=== PATIENT | female | born 1970 | race Caucasian/White ===

== ENCOUNTER 2018-10-04 07:03 | Emergency (ER) | payer BC ==
[2018-10-04] MEDS ORDERED: TETANUS & DIPHTHERIA TOX,ADULT 0.5 ML VIAL ONE (07:42)
[2018-10-04] MEDS ORDERED: NA CHLORIDE 0.9% 1,000 ML ONE (07:43)
--- NOTE | 2018-10-04 07:57 | RAD REPORT ---
EXAM DESCRIPTION: CT - Head C Spine Mpr Wo Con - 10/04/2018 7:26 am CLINICAL HISTORY: Head and neck injury status post fall. Head and neck pain. Dizziness COMPARISON: None. TECHNIQUE: Computed axial tomography of the head and cervical spine was obtained. Sagittal and coronal reconstruction was performed. All CT scans are performed using dose optimization technique as appropriate and may include automated exposure control or mA/KV adjustment according to patient size. FINDINGS: An intracranial bleed is not seen. The ventricles are normal in caliber. An extra-axial fl uid collection is not noted.Fluid within the visualized sinuses and mastoids is not seen A cervical fracture is not visualized. No dislocation is noted. IMPRESSION: No acute intracranial abnormality is seen. A cervical fracture is not visualized. If the patient continues to have symptoms to suggest intracra nial /spinal cord pathology then MRI would be recommended
[2018-10-04 08:00] LABS: Absolute Lymphocytes (CBC) 1.2 K/uL (0.7-4.9); Absolute Neutrophil 8.7 K/uL (1.8-8.0); Basophils % 0.4 % (0-1.3); Eosinophils % 0.2 % (0-4.4); Hematocrit 45.8 % (36.0-45.0); Lymphocytes % 11.1 % (15.3-44.8); MPV 7.2 fL (7.6-11.3); RBC Red Blood Cell Count 5.47 M/uL (3.86-4.86)
[2018-10-04] MEDS ORDERED: ONDANSETRON 4 MG/2 ML VIAL ONE (08:14)
--- NOTE | 2018-10-04 08:31 | EDPHYS ---
Physician Documentation [facility] Name: Reyna Garcia Age: 48 yrs Sex: Female : 1970 Arrival Date: 10/04/2018 Time: 07:05 Bed 7 Private MD: ED Physician Noel Thao HPI: 10/04 07:13 This 48 yrs old Female presents to ER via EMS with complaints of Passed Out kdr Prior To Arrival. 07:13 The patient has experienced syncope, collapsed. Onset: The symptoms/episode kdr began/occurred suddenly, just prior to arrival. Duration: This was a single episode. Context: the episode(s) was witnessed, by family, , occurred at home, occurred while the patient was Getting up to go to the bathroom and then had cramp in calf which caused excruciating pain. Associated injury: Head/face: laceration, 3 cm(s). Associated signs and symptoms: Pertinent positives: diaphoresis, lightheadedness. Current symptoms: head pain. The patient has not experienced similar symptoms in the past. The patient has not recently seen a physician. Historical: - Allergies: 07:08 No Known Allergies; hb - Immunization history:: Adult Immunizations up to date. - Social history:: Smoking status: Patient/guardian denies using tobacco. - Ebola Screening: : No symptoms or risks identified at this time. ROS: 07:13 Constitutional: Negative for fever, chills, and weight loss, Eyes: Negative for injury, kdr pain, redness, and discharge, ENT: Negative for injury, pain, and discharge, Neck: Negative for injury, pain, and swelling, Cardiovascular: Negative for chest pain, palpitations, and edema, Respiratory: Negative for shortness of breath, cough, wheezing, and pleuritic chest pain, Abdomen/GI: Negative for abdominal pain, nausea, vomiting, diarrhea, and constipation, Back: Negative for injury and pain, : Negative for injury, bleeding, discharge, and swelling, MS/Extremity: Negative for injury and deformity, Psych: Negative for depression, anxiety, suicide ideation, homicidal ideation, and hallucinations, Allergy/Immunology: Negative for hives, rash, and allergies, Endocrine: Negative for neck swelling, polydipsia, polyuria, polyphagia, and marked weight changes, Hematologic/Lymphatic: Negative for swollen nodes, abnormal bleeding, and unusual bruising. 07:13 Skin: Positive for laceration(s). 07:13 Neuro: Positive for loss of consciousness, syncope, weakness. Exam: 07:13 Constitutional: This is a well developed, well nourished patient who is awake, alert, kdr and in no acute distress. Eyes: Pupils equal round and reactive to light, extra-ocular motions intact. Lids and lashes normal. Conjunctiva and sclera are non-icteric and not injected. Cornea within normal limits. Periorbital areas with no swelling, redness, or edema. ENT: Nares patent. No nasal discharge, no septal abnormalities noted. Tympanic membranes are normal and external auditory canals are clear. Oropharynx with no redness, swelling, or masses, exudates, or evidence of obstruction, uvula midline. Mucous membranes moist. Neck: Trachea midline, no thyromegaly or masses palpated, and no cervical lymphadenopathy. Supple, full range of motion without nuchal rigidity, or vertebral point tenderness. No Meningismus. Chest/axilla: Normal chest wall appearance and motion. Nontender with no deformity. No lesions are appreciated. Cardiovascular: Regular rate and rhythm with a normal S1 and S2. No gallops, murmurs, or rubs. Normal PMI, no JVD. No pulse deficits. Respiratory: Lungs have equal breath sounds bilaterally, clear to auscultation and percussion. No rales, rhonchi or wheezes noted. No increased work of breathing, no retractions or nasal flaring. Abdomen/GI: Soft, non-tender, with normal bowel sounds. No distension or tympany. No guarding or rebound. No evidence of tenderness throughout. Back: No spinal tenderness. No costovertebral tenderness. Full range of motion. Skin: Warm, dry with normal turgor. Normal color with no rashes, no lesions, and no evidence of cellulitis. MS/ Extremity: Pulses equal, no cyanosis. Neurovascular intact. Full, normal range of motion. Neuro: Awake and alert, GCS 15, oriented to person, place, time, and situation. Cranial nerves II-XII grossly intact. Motor strength 5/5 in all extremities. Sensory grossly intact. Cerebellar exam normal. Normal gait. Psych: Awake, alert, with orientation to person, place and time. Behavior, mood, and affect are within normal limits. 07:13 Head/face: Noted is a laceration(s), that is superficial, 3 cm(s). Vital Signs: 07:07 BP 110 / 81; Pulse 108; Resp 16; Temp 97.9; Pulse Ox 100% on R/A; Pain 4/10; hb 07:55 BP 104 / 62; Pulse 88; Resp 16; Pulse Ox 100% on R/A; hb 08:45 BP 115 / 60; Pulse 80; Resp 16; Pulse Ox 100% on R/A; hb 09:45 BP 122 / ???; Pulse 68; Resp 78; Temp 16; Pulse Ox 100% on R/A; hb Laceration: 08:03 Wound Repair of 3cm ( 1.2in ) subcutaneous laceration to face and top of head. kb Irregularly shaped.. Distal neuro/vascular/tendon intact. Wound prep: Extensive cleansing with hibiclenz by me, Wound irrigation with saline by me. Skin closed with 5 1-0 [place] using staple gun. Patient tolerated well. MDM: 08:30 Patient medically screened. kdr 08:34 Data reviewed: vital signs, nurses notes, lab test result(s). Counseling: I had a kdr detailed discussion with the patient and/or guardian regarding: the historical points, exam findings, and any diagnostic results supporting the discharge/admit diagnosis, lab results, radiology results, the need for outpatient follow up. 10/04 07:13 Order name: CBC with Diff; Complete Time: 08:18 kdr 10/04 07:13 Order name: Chem 7; Complete Time: 08:18 kdr 10/04 07:13 Order name: CT Head C Spine; Complete Time: 08:18 kdr 10/04 07:13 Order name: EKG - Nurse/Tech; Complete Time: 07:55 kdr 10/04 07:32 Order name: Dressing - Wound; Complete Time: 07:55 kb 10/04 07:32 Order name: Gloves, Sterile; Complete Time: 07:55 kb 10/04 09:29 Order name: EKG Electrocardiogram EDMS 10/04 07:32 Order name: Setup Suture Tray; Complete Time: 07:55 kb Administered Medications: 07:35 Drug: Tetanus-Diphtheria Toxoid Adult 0.5 ml {Beach Expert: [employer] Exp: rb1 08/25/2020. Lot #: [id number]. } Route: IM; Site: right deltoid; 08:07 Follow up: Response: No adverse reaction hb 08:06 Drug: NS 0.9% 1000 ml Route: IV; Rate: 1 bolus; Site: right antecubital; hb 08:45 Follow up: Response: No adverse reaction; IV Status: Completed infusion hb 08:06 Drug: Zofran 4 mg Route: IVP; Site: right antecubital; hb 08:54 Follow up: Response: No adverse reaction hb 08:45 Drug: Potassium Chloride 40 mEq Route: PO; hb 09:40 Follow up: Response: No adverse reaction hb 08:45 Drug: Flexeril 10 mg Route: PO; hb 09:45 Follow up: Response: No adverse reaction hb 08:47 CANCELLED (per Dr. Thao): NS 0.45 % with KCl 20 mEq/L 1000 ml IV at 125 ml/hr once hb 08:49 Drug: NS 0.9% 1000 ml Route: IV; Rate: 1000 ml; Site: right antecubital; hb 10:00 Follow up: Response: No adverse reaction; IV Status: Completed infusion hb Disposition: 08:34 Co-signature as Attending Physician, Noel Thao MD I agree with the assessment and kdr plan of care. Disposition: 10/04/18 08:30 Discharged to Home. Impression: Syncope and collapse, Other specified injuries of head, Superficial injury of head, Laceration without foreign body of scalp, Hypokalemia, Muscle spasm of calf. - Condition is Stable. - Discharge Instructions: Syncope, Laceration Care, Adult, Djcs-wh-Tzdw, Muscle Cramps and Spasms, Wfav-ij-Uroz, Head Injury, Adult, Odni-ih-Jryj, Stitches, Shobha, or Adhesive Wound Closure, Ogcl-hc-Yodl, Facial or Scalp Contusion, Fyxv-sa-Cbye. - Prescriptions for Cyclobenzaprine 10 mg Oral Tablet - take 1 tablet by ORAL route every 8 hours As needed; 30 tablet. Tramadol 50 mg Oral Tablet - take 1 tablet by ORAL route every 8 hours as needed; 12 tablet. Keflex 500 mg Oral Capsule - take 1 capsule by ORAL route every 8 hours for 7 days; 21 capsule. - Medication Reconciliation Form, Thank You Letter, Antibiotic Education form. - Follow up: Private Physician; When: 2 - 3 days; Reason: If symptoms return, Further diagnostic work-up, Recheck today's complaints, Continuance of care, Re-evaluation by your physician. - Problem is new. - Symptoms have improved. - Notes: [place] should be taken out in about 10 days. Signatures: Dispatcher [employer] EDMeliza Salazar, ENVIRONMENTAL SERVICES TECH-C ENVIRONMENTAL SERVICES TECH-Noel Mejia MD MD kdr Migdalia Rodriguez RN RN [facility] Olga Arauz RN RN Corrections: (The following items were deleted from the chart) 08:35 08:30 10/04/2018 08:30 Discharged to Home. Impression: Syncope and collapse; Other kdr specified injuries of head; Superficial injury of head; Laceration without foreign body of scalp. Condition is Stable. Forms are Medication Reconciliation Form, Thank You Letter, Antibiotic Education, Prescription Opioid Use. Follow up: Private Physician; When: 2 - 3 days; Reason: If symptoms return, Further diagnostic work-up, Recheck today's complaints, Continuance of care, Re-evaluation by your physician. Problem is new. Symptoms have improved. kdr 08:47 08:19 NS 0.45 % with KCl 20 mEq/L 1000 ml IV at 125 ml/hr once ordered. kdr hb 08:47 08:47 NS 0.45 % with KCl 20 mEq/L 1000 ml IV at 125 ml/hr once ordered. hb hb 10:03 08:35 10/04/2018 08:30 Discharged to Home. Impression: Syncope and collapse; Other hb specified injuries of head; Superficial injury of head; Laceration without foreign body of scalp; Hypokalemia; Muscle spasm of calf. Condition is Stable. Discharge Instructions: Syncope, Laceration Care, Adult, Gnoa-if-Jzju, Head Injury, Adult, Rpmo-gv-Xevd, Stitches, [place], or Adhesive Wound Closure, Qlni-nm-Tqks, Facial or Scalp Contusion, Kxtp-ka-Dsho, Muscle Cramps and Spasms, Pfgk-sc-Zsuq. Prescriptions for Cyclobenzaprine 10 mg Oral Tablet - take 1 tablet by ORAL route every 8 hours As needed; 30 tablet, Tramadol 50 mg Oral Tablet - take 1 tablet by ORAL route every 8 hours as needed; 12 tablet, Keflex 500 mg Oral Capsule - take 1 capsule by ORAL route every 8 hours for 7 days; 21 capsule. and Forms are Medication Reconciliation Form, Thank You Letter, Antibiotic Education. Follow up: Private Physician; When: 2 - 3 days; Reason: If symptoms return, Further diagnostic work-up, Recheck today's complaints, Continuance of care, Re-evaluation by your physician. Problem is new. Symptoms have improved. kdr
--- NOTE | 2018-10-04 08:31 | ER ---
Nurse's Notes [facility] Name: Reyna Garcia Age: 48 yrs Sex: Female : 1970 Arrival Date: 10/04/2018 Time: 07:05 Bed 7 Private MD: Diagnosis: Syncope and collapse;Other specified injuries of head;Superficial injury of head;Laceration without foreign body of scalp;Hypokalemia;Muscle spasm of calf Presentation: 10/04 07:05 Presenting complaint: EMS states: Became dizzy while ambulating to bathroom, fell and hb hit head on door hinge. + LOC. Laceration to top of head noted, not bleeding at this time. SBP on scene 130s, SBP 50s during transit to ED. Transition of care: patient was not received from another setting of care. Onset of symptoms was October 04, 2018. Risk Assessment: Do you want to hurt yourself or someone else? Patient reports no desire to harm self or others. Care prior to arrival: None. 07:05 Method Of Arrival: EMS: [facility] hb 07:05 Acuity: KWASI 3 hb 07:30 Initial Sepsis Screen: Does the patient meet any 2 criteria? No. Patient's initial hb sepsis screen is negative. Does the patient have a suspected source of infection? No. Patient's initial sepsis screen is negative. Historical: - Allergies: 07:08 No Known Allergies; hb - Immunization history:: Adult Immunizations up to date. - Social history:: Smoking status: Patient/guardian denies using tobacco. - Ebola Screening: : No symptoms or risks identified at this time. Screenin:08 Abuse screen: Denies threats or abuse. Denies injuries from another. Nutritional hb screening: No deficits noted. Tuberculosis screening: No symptoms or risk factors identified. Fall Risk Total Magallon Fall Scale indicates Low Risk Score (25-44 pts). Fall prevention measures have been instituted. Side Rails Up X 2 Frequent Obs/Assesments occuring As available Patient and Family Educated on Fall Prevention Program and strategies. Assessment: 07:10 General: Appears in no apparent distress. Behavior is calm, cooperative. Pain: Pain hb currently is 4 out of 10 on a pain scale. Neuro: Level of Consciousness is awake, alert, obeys commands, Oriented to person, place, time, situation. Cardiovascular: Heart tones S1 S2 present Capillary refill < 3 seconds Patient's skin is warm and dry. Respiratory: Airway is patent Respiratory effort is even, unlabored, Respiratory pattern is regular, symmetrical, Breath sounds are clear bilaterally. GI: No deficits noted. No signs and/or symptoms were reported involving the gastrointestinal system. : No signs and/or symptoms were reported regarding the genitourinary system. EENT: No signs and/or symptoms were reported regarding the EENT system. Derm: Skin is healthy with good turgor, Skin is pink, warm \T\ dry. Musculoskeletal: No signs and/or symptoms reported regarding the musculoskeletal system. Injury Description: Laceration sustained to top of head is clean, 2.6 to 7.5 cm long, not bleeding, was sustained 30-60 minutes ago. 07:50 Reassessment: DYNAMIC ETCHING PROCESSOR Meliza at bedside for laceration repari. hb 08:09 Reassessment: Pt c/o nausea, Dr. Thao notified, Zofran administered as ordered. VSS. hb at bedside. 08:55 Reassessment: Discharge ordered, IV fluids infujsing at this time. hb 09:15 Reassessment: Patient appears in no apparent distress at this time. No changes from hb previously documented assessment. Patient and/or family updated on plan of care and expected duration. Pain level reassessed. Patient is alert, oriented x 3, equal unlabored respirations, skin warm/dry/pink. 10:00 Reassessment: Patient appears in no apparent distress at this time. No changes from hb previously documented assessment. Patient and/or family updated on plan of care and expected duration. Pain level reassessed. Patient is alert, oriented x 3, equal unlabored respirations, skin warm/dry/pink. Vital Signs: 07:07 BP 110 / 81; Pulse 108; Resp 16; Temp 97.9; Pulse Ox 100% on R/A; Pain 4/10; hb 07:55 BP 104 / 62; Pulse 88; Resp 16; Pulse Ox 100% on R/A; hb 08:45 BP 115 / 60; Pulse 80; Resp 16; Pulse Ox 100% on R/A; hb 09:45 BP 122 / ???; Pulse 68; Resp 78; Temp 16; Pulse Ox 100% on R/A; hb ED Course: 07:05 Patient arrived in ED. hb 07:07 Triage completed. hb 07:08 Arm band placed on. hb 07:08 Patient has correct armband on for positive identification. Bed in low position. Call hb light in reach. Side rails up X2. 07:10 Noel Thao MD is Attending Physician. kdr 07:26 CT Head C Spine In Process Unspecified. EDMS 07:55 Initial lab(s) drawn, by me, sent to lab. Inserted saline lock: 22 gauge in right em1 forearm, using aseptic technique. Blood collected. 08:00 Olga Arauz, RN is Primary Nurse. hb 09:45 No provider procedures requiring assistance completed. hb 10:01 IV discontinued, intact, bleeding controlled, No redness/swelling at site. Pressure hb dressing applied. Administered Medications: 07:35 Drug: Tetanus-Diphtheria Toxoid Adult 0.5 ml {Supervisor Coremaker: [employer]. Exp: rb1 08/25/2020. Lot #: [id number]. } Route: IM; Site: right deltoid; 08:07 Follow up: Response: No adverse reaction hb 08:06 Drug: NS 0.9% 1000 ml Route: IV; Rate: 1 bolus; Site: right antecubital; hb 08:45 Follow up: Response: No adverse reaction; IV Status: Completed infusion hb 08:06 Drug: Zofran 4 mg Route: IVP; Site: right antecubital; hb 08:54 Follow up: Response: No adverse reaction hb 08:45 Drug: Potassium Chloride 40 mEq Route: PO; hb 09:40 Follow up: Response: No adverse reaction hb 08:45 Drug: Flexeril 10 mg Route: PO; hb 09:45 Follow up: Response: No adverse reaction hb 08:47 CANCELLED (per Dr. Thao): NS 0.45 % with KCl 20 mEq/L 1000 ml IV at 125 ml/hr once hb 08:49 Drug: NS 0.9% 1000 ml Route: IV; Rate: 1000 ml; Site: right antecubital; hb 10:00 Follow up: Response: No adverse reaction; IV Status: Completed infusion hb Outcome: 08:30 Discharge ordered by . kdr 10:01 Discharged to home ambulatory, with significant other. hb 10:01 Condition: stable 10:01 Discharge instructions given to patient, Instructed on discharge instructions, follow up and referral plans. medication usage, wound care, Demonstrated understanding of instructions, follow-up care, medications, wound care, Prescriptions given X 3. 10:03 Patient left the ED. hb Signatures: Dispatcher [employer] EDMS Noel Thao MD MD kdr Martinez, Eric 1 Migdalia Rodriguez, RN RN rb1 Olga Arauz RN RN hb
[2018-10-04] MEDS ORDERED: CYCLOBENZAPRINE 10 MG TAB ONE (08:48)
[2018-10-04] MEDS ORDERED: POTASSIUM CL SA 10 MEQ TAB PO ONE (08:48)
[2018-10-04] MEDS ORDERED: NS KCL 20MEQ 1,000 ML IV ONE (08:54)
[2018-10-04] MEDS ORDERED: NACHLORIDE 0.45% 1,000 ML with POTASSIUM CL 20 MEQ IV ONE ×2 (09:00)
[2018-10-04 10:25] VITALS: O2SAT 100
[2018-10-04 10:27] VITALS: BP 115/60
[2018-10-04 10:28] VITALS: TEMP 16
--- NOTE | 2018-10-04 13:17 | EKG ---
Test Date: 2018-10-04 Test Time: 07:44:32 Human Resources Associate: ROSA MEASUREMENT RESULTS: Intervals: Rate: 73 [place]: 172 QRSD: 84 QT: 386 QTc: 425 [place]: P: 28 [place]: 172 QRS: 17 T: 42 INTERPRETIVE STATEMENTS: Normal sinus rhythm Normal ECG No previous ECG available for comparison Electronically Signed On 10-04-18 13:16:29 PIECE DYE WORKER by Imer Felipe
== END 2018-10-04 10:03 | disposition home or self-care (01) ==
LOC: ER 07:03
PROC: 0JQ00ZZ Repair Scalp Subcutaneous Tissue and Fascia, Open Approach (ICD-10-PCS; principal; 2018-10-04)
DX: S01.01XA Laceration without foreign body of scalp, initial encounter (principal); M62.831 Muscle spasm of calf; E87.6 Hypokalemia; S09.8XXA Other specified injuries of head, initial encounter; S00.90XA Unspecified superficial injury of unspecified part of head, initial encounter; W18.39XA Other fall on same level, initial encounter; Y93.01 Activity, walking, marching and hiking; Y92.008 Other place in unspecified non-institutional (private) residence as the place of occurrence of the external cause; Z23 Encounter for immunization
CPT/HCPCS: 36415; 70450; 72125; 80048; 85025; 90714; 93005; 96361; 96374; 99284; J2405; J7030

== ENCOUNTER 2020-02-09 06:43 | Emergency (ER) | payer BC ==
--- OUTSIDE RECORDS SUMMARY | 2020-02-09 06:45 | XMS REPORT | Continuity of Care Document ---
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 Medic al disorder Group (disorder) Joint pain Active Problem 09/27/2019 Medic al (finding) Group Medications No Data Provided for This Section Allergies, Adverse Reactions, Alerts Substance Category Reaction Severity Reaction Status Date Comments S ource type Reported No Known Assertion Drug Medication allergy Medic al Allergies Group Immunizations No Data Provided for This Section Results No Data Provided for This Section Pathology Reports No Data Provided for This Section Diagnostic Reports No Data Provided for This Section Consultation Notes No Data Provided for This Section Discharge Summaries No Data Provided for This Section History and Physicals No Data Provided for This Section Vital Signs Vital Sign Value Date Comments Source Systolic (mm Hg) 122 09/10/2019 [facility] Group Diastolic (mm Hg) 75 09/10/2019 [facility] Group Heart Rate 86 09/10/2019 [facility] Height 160.02 cm 09/10/2019 [facility] p Weight 93.182 09/10/2019 [facility] p BMI Calculated 36.39 09/10/2019 Medical Gr oup Encounters Location Location Encounter Encounter Reason Attending ADM [place] Stat Source Details Type Number For Provider Date Date Visit Outpatient [id number] 09/[address] [facility] Outpatient [id number] 09/10 09/11 [facility]2019 [facility] Outpatient [id number] ACCESS LIAISON 09/[facility] Ambulatory [id number] ACCESS LIAISON 09/25 09/25 [facility] Pre-Reg VISIT /2019 [facility] al [facility] Surgery Procedures Procedure Code Date Perfomer Comments Source Appendectomy [id number] [facility] Partial colectomy [id number] [facility] Assessment and Plan No Data Provided for This Section Plan of Care No Data Provided for This Section Social History Social History Date Source Social History TypeResponse 09/10/2019 [facility] Smoking Status Never smoker; Exposure to Tobacco Smoke None; Cigarette Smoking Last 365 Days No; Reg Smoking Cessation Counseling No entered on: 09/10/19 Family History No Data Provided for This Section Advance Directives No Data Provided for This Section Functional Status No Data Provided for This Section
[2020-02-09] MEDS ORDERED: ONDANSETRON 4 MG/2 ML VIAL ONE (07:37)
[2020-02-09] MEDS ORDERED: NA CHLORIDE 0.9% 1,000 ML ONE (07:37)
[2020-02-09] MEDS ORDERED: KETOROLAC 30 MG/ML INJ ONE (07:37)
[2020-02-09 07:53] LABS: Bilirubin Direct 0.1 mg/dL (0-0.2); Bilirubin Total 0.6 mg/dL (0.2-1.0); Potassium 3.5 mmol/L (3.5-5.1); Protein, Total 7.7 g/dL (6.4-8.2)
[2020-02-09 08:02] LABS: Absolute Lymphocytes (CBC) 1.6 K/uL (0.7-4.9); Basophils % 0.6 % (0-1.3); Hematocrit 40.9 % (36.0-45.0); Lymphocytes % 24.5 % (15.3-44.8); MPV 7.4 fL (7.6-11.3); RBC Red Blood Cell Count 4.87 M/uL (3.86-4.86)
--- NOTE | 2020-02-09 09:10 | ER ---
Nurse's Notes [facility] Name: Reyna Garcia Age: 49 yrs Sex: Female : 1970 Arrival Date: 02/09/2020 Time: 06:46 Bed 7 Private MD: Diagnosis: Dehydration Presentation: 02/08 07:09 Chief complaint: Patient states: lightheaded, dizziness, diarrhea, nausea, chest sv tightness intermittent with deep breathing, sore throat, decreased appetite x 2 days. Pt states "I blame it on stress but I want to get checked.". Coronavirus screen: Surgical mask placed on patient. Patient moved to private room, placed in contact and droplet isolation with eye protection until further assessment. Patient reports a cough. Patient denies shortness of breath or difficulty breathing. Patient denies measured and/or subjective temperature greater than 100.4F prior to today's visit. Patient denies travel on a cruise ship or to a country the [facility] currently lists as an affected area. Patient reports contact with known and/or suspected case of COVID-19. Ebola Screen: No symptoms or risks identified at this time. Risk Assessment: Do you want to hurt yourself or someone else? Patient reports no desire to harm self or others. Onset of symptoms was February 07, 2020. 07:09 Method Of Arrival: Ambulatory sv 07:09 Acuity: KWASI 3 sv Historical: - Allergies: 07:11 No Known Allergies; sv - PMHx: 07:11 Migraines; sv - PSHx: 07:11 Colectomy; sv - Immunization history:: Adult Immunizations up to date. - Social history:: Smoking status: Patient denies any tobacco usage or history of. Patient/guardian denies using alcohol, street drugs, The patient lives with family. - Family history:: not pertinent. - Hospitalizations: : No recent hospitalization is reported. Assessment: 08:02 Pain: Complains of pain in abdomen. Neuro: Level of Consciousness is awake, alert, dm5 obeys commands, Oriented to person, place, time. Respiratory: Airway is patent Respiratory effort is even, unlabored, Respiratory pattern is regular, symmetrical. GI: Abdomen is flat, Reports cramping, diarrhea, nausea. Derm: Skin is pink, warm \\T\\ dry. 08:33 Reassessment: Patient states symptoms have improved. dm5 09:02 Reassessment: Patient is alert, oriented x 3, equal unlabored respirations, skin dm5 warm/dry/pink. Patient states symptoms have improved. pt updated on POC. Pt will be discharged following the complete administration of fluids.. Vital Signs: 07:12 Weight 90.72 kg; Height 5 ft. 3 in. (160.02 cm); Pain 6/10; sv 07:30 BP 126 / 72; Pulse 97; Resp 18; Temp 97.9(O); Pulse Ox 97% ; dm5 08:00 BP 132 / 82; Pulse 71; Resp 18; Pulse Ox 98% ; dm5 07:12 Body Mass Index 35.43 (90.72 kg, 160.02 cm) sv ED Course: 06:46 Patient arrived in ED. bp1 07:00 Adrien Rocha, BAKARI is PHCP. pm1 07:11 Triage completed. sv 07:11 Arm band placed on Patient placed in an exam room, on a stretcher. sv 07:11 Patient has correct armband on for positive identification. Placed in gown. Bed in low sv position. Call light in reach. Door closed. Head of bed elevated. 07:12 Chelita Baez MD is Attending Physician. ma2 07:26 Leela Null, RN is Primary Nurse. dm5 08:02 Missed attempt(s): 20 gauge in right antecubital area. kj1 08:03 Flu Sent. kj1 08:03 COVID-19 Sent. kj1 08:07 CXR XRAY In Process Unspecified. EDMS Administered Medications: 07:47 Drug: NS 0.9% 1000 ml Route: IV; Rate: 1000 ml; Site: left wrist; dm5 07:48 Drug: TORadol 30 mg Route: IVP; Site: left wrist; dm5 08:33 Follow up: Response: Pain is decreased dm5 07:49 Drug: Zofran (Ondansetron) 4 mg Route: IVP; Site: left wrist; dm5 08:32 Follow up: Response: Nausea is decreased dm5 Outcome: 09:10 Discharge ordered by . ma2 09:34 Patient left the ED. sv Addendum: 02/14/2020 10:53 Addendum: COVID-19 Result: Negative result given to RN to notify pt. Notified pt of s s negative COVID 19 swab results. Pt advised that even with a negative test result they should remain in isolation until symptom free for 3 days without medication. Pt also advised to return to the ED for worsening symptoms. Signatures: Dispatcher [employer] EDNM Leela Null RN RN dm5 Hanh Daniel RN RN sv Genevieve Stein RN RN ss Adrien Rocha, BAKARI GROUP WORKER pm1 Chelita Baez MD MD ma2 Blanca Frias 1 Britta Bernal [facility]
--- NOTE | 2020-02-09 09:10 | EDPHYS ---
Physician Documentation [facility] Name: Reyna Garcia Age: 49 yrs Sex: Female : 1970 Arrival Date: 02/09/2020 Time: 06:46 Bed 7 Private MD: ED Physician Chelita Baez HPI: 02/08 07:12 This 49 yrs old Female presents to ER via Ambulatory with complaints of ma2 Decreased Appetite, General Weakness, Diarrhea. 07:12 Onset: The symptoms/episode began/occurred gradually, 1 day(s) ago. Associated signs ma2 and symptoms: Pertinent negatives: belching, dysuria, hematuria. Severity of symptoms: At their worst the symptoms were mild in the emergency department the symptoms are unchanged. The patient has not experienced similar symptoms in the past. 08:28 The patient presents to the emergency department with nausea, diarrhea. ma2 Historical: - Allergies: 07:11 No Known Allergies; sv - PMHx: 07:11 Migraines; sv - PSHx: 07:11 Colectomy; sv - Immunization history:: Adult Immunizations up to date. - Social history:: Smoking status: Patient denies any tobacco usage or history of. Patient/guardian denies using alcohol, street drugs, The patient lives with family. - Family history:: not pertinent. - Hospitalizations: : No recent hospitalization is reported. ROS: 08:28 Constitutional: Negative for fever, chills, and weight loss. ma2 08:28 All other systems are negative. Exam: 08:28 Constitutional: This is a well developed, well nourished patient who is awake, alert, ma2 and in no acute distress. ENT: Nares patent. No nasal discharge, no septal abnormalities noted. Tympanic membranes are normal and external auditory canals are clear. Oropharynx with no redness, swelling, or masses, exudates, or evidence of obstruction, uvula midline. Mucous membranes moist. Neck: Trachea midline, no thyromegaly or masses palpated, and no cervical lymphadenopathy. Supple, full range of motion without nuchal rigidity, or vertebral point tenderness. No Meningismus. Chest/axilla: Normal chest wall appearance and motion. Nontender with no deformity. No lesions are appreciated. Cardiovascular: Regular rate and rhythm with a normal S1 and S2. No gallops, murmurs, or rubs. Normal PMI, no JVD. No pulse deficits. Respiratory: Lungs have equal breath sounds bilaterally, clear to auscultation and percussion. No rales, rhonchi or wheezes noted. No increased work of breathing, no retractions or nasal flaring. Abdomen/GI: Soft, non-tender, with normal bowel sounds. No distension or tympany. No guarding or rebound. No evidence of tenderness throughout. MS/ Extremity: Pulses equal, no cyanosis. Neurovascular intact. Full, normal range of motion. Neuro: Awake and alert, GCS 15, oriented to person, place, time, and situation. Cranial nerves II-XII grossly intact. Motor strength 5/5 in all extremities. Sensory grossly intact. Cerebellar exam normal. Normal gait. Vital Signs: 07:12 Weight 90.72 kg; Height 5 ft. 3 in. (160.02 cm); Pain 6/10; sv 07:30 BP 126 / 72; Pulse 97; Resp 18; Temp 97.9(O); Pulse Ox 97% ; dm5 08:00 BP 132 / 82; Pulse 71; Resp 18; Pulse Ox 98% ; dm5 07:12 Body Mass Index 35.43 (90.72 kg, 160.02 cm) sv MDM: 07:12 Patient medically screened. ma2 08:28 Differential diagnosis: gastritis, pancreatitis, viral gastroenteritis, ma2 gastroenteritis. Data reviewed: vital signs, nurses notes. Counseling: I had a detailed discussion with the patient and/or guardian regarding: the historical points, exam findings, and any diagnostic results supporting the discharge/admit diagnosis, the presence of at least one elevated blood pressure reading (>120/80) during this emergency department visit, the need for outpatient follow up. Response to treatment: the patient's symptoms have markedly improved after treatment. 02/08 07:15 Order name: BMP [facility] 02/08 07:15 Order name: CBC with Diff; Complete Time: : [facility] 02/08 07:15 Order name: Hepatic Function; Complete Time: : [facility] 02/08 07:15 Order name: Lipase; Complete Time: : [facility] 02/08 07:15 Order name: Flu; Complete Time: : [facility] 02/08 07:15 Order name: COVID-19 [facility] 02/08 07:15 Order name: IV Saline Lock; Complete Time: 08:02 ak2 02/08 07:15 Order name: Labs collected and sent; Complete Time: 08:02 [facility] 02/08 07:15 Order name: NPO; Complete Time: 08:02 ak2 02/08 07:15 Order name: CXR XRAY [facility] 02/08 07:16 Order name: Basic Metabolic Panel; Complete Time: 08:27 EDMS 02/08 07:15 Order name: Droplet/Contact Precautions; Complete Time: 08:32 ak2 02/08 07:15 Order name: Labs collected and sent; Complete Time: 08:03 ak2 02/08 07:15 Order name: O2 Per Protocol; Complete Time: 08:32 ma2 Administered Medications: 07:47 Drug: NS 0.9% 1000 ml Route: IV; Rate: 1000 ml; Site: left wrist; dm5 07:48 Drug: TORadol 30 mg Route: IVP; Site: left wrist; dm5 08:33 Follow up: Response: Pain is decreased dm5 07:49 Drug: Zofran (Ondansetron) 4 mg Route: IVP; Site: left wrist; dm5 08:32 Follow up: Response: Nausea is decreased dm5 Disposition: 02/09/20 09:10 Discharged to Home. Impression: Dehydration. - Condition is Stable. - Discharge Instructions: COVID-19, Dehydration, Adult. - Prescriptions for Zofran 4 mg Oral Tablet - take 1 tablet by ORAL route every 12 hours As needed; 20 tablet. - Medication Reconciliation Form, Thank You Letter, Antibiotic Education, Prescription Opioid Use form. - Follow up: Private Physician; When: Tomorrow; Reason: If symptoms return, Continuance of care. Signatures: Dispatcher [employer] Leela Loco RN RN dm5 Hanh Daniel RN RN sv Alzahri, Mohammad, MD MD ma2 Corrections: (The following items were deleted from the chart) 09:34 09:10 02/09/2020 09:10 Discharged to Home. Impression: Dehydration. Condition is sv Stable. Forms are Medication Reconciliation Form, Thank You Letter, Antibiotic Education, Prescription Opioid Use. Follow up: Private Physician; When: Tomorrow; Reason: If symptoms return, Continuance of care. ma2
--- NOTE | 2020-02-09 09:16 | RAD REPORT ---
EXAM DESCRIPTION: RAD - Chest Single View - 02/09/2020 8:07 am CLINICAL HISTORY: CONGESTION, chest tightness COMPARISON: Two view chest December 2007 TECHNIQUE: AP portable chest image was obtained 02/09/2020 8:07 am . FINDINGS: Lungs are clear. Heart and vasculature are normal. No measurable pleural effusion and no p neumothorax. No acute bony abnormality seen. No acute aortic findings suspected. IMPRESSION: No acute cardiopulmonary process. No significant change since 2007.
[2020-02-09 09:42] VITALS: TEMP 97.9
[2020-02-09 09:44] VITALS: BP 132/82; O2SAT 98
== END 2020-02-09 09:34 | disposition home or self-care (01) ==
LOC: ER 06:43
DX: E86.0 Dehydration (principal); Z20.828 Contact with and (suspected) exposure to other viral communicable diseases
CPT/HCPCS: 85025; 80048; 36415; 80076; 83690; 87804 ×2; 71045; 96375; 96374; 99283; U0001; J7030; J2405

== ENCOUNTER 2020-07-02 09:08 | Emergency (ER) | payer BC ==
--- OUTSIDE RECORDS SUMMARY | 2020-07-02 09:10 | XMS REPORT | Clinical Summary ---
:1970 Author Organization [facility] Address [address] [place] [address] Care Team Providers Name Role Phone Nam Patiño Primary Care Provider Allergies No Known Allergies Medications Medication Sig Dispensed Refills Start Date End Date Status ondansetron (ZOFRAN) 4 Take 4 mg by 0 Active MG tablet mouth 2 (two) times daily as needed for Nausea. pantoprazole (PROTONIX) Take 40 mg by 0 Active 40 MG tablet mouth daily. Active Problems Not on file Encounters Date Type Specialty Care Team Description 03/30/2020 Anesthesia Event GiovanyChelo Lopez MD 03/30/2020 Surgery Michael Groves COLONOSCOPY,B GWEN Johnson MD 03/30/2020 Hospital Encounter Michael Groves MD 03/30/2020 Travel 03/27/2020 Hospital Encounter Pre-Admission Michael Groves MD 03/27/2020 Travel after 07/02/2019 Social History Tobacco Use Types Packs/Day Years Used Date Never Smoker Smokeless Tobacco: Never Used Alcohol Use Drinks/Week oz/Week Comments No Alcohol Habits Answer Date Recorded How often do you have a drink containing alcohol? Never 03/27/2020 How many drinks containing alcohol do you have on a typical Not asked day when you are drinking? How often do you have six or more drinks on one occasion? No t asked Sex Assigned at Date Recorded Not on file Last Filed Vital Signs Vital Sign Reading Time Taken Comments Blood Pressure 114/78 03/30/2020 12:00 PM CDT Pulse 70 03/30/2020 12:00 PM CDT Temperature 36.6 C (97.8 F) 03/30/2020 11:33 AM CDT Respiratory Rate 28 03/30/2020 12:00 PM CDT Oxygen Saturation 100% 03/30/2020 12:00 PM CDT Inhaled Oxygen Concentration - - Weight 88.5 kg (195 lb) 03/30/2020 10:00 AM CDT Height 162.6 cm (5' 4") 03/30/2020 10:00 AM CDT Body Mass Index 33.47 03/30/2020 10:00 AM CDT Plan of Treatment Health Maintenance Due Date Last Done Comments CERVICAL CANCER SCREENING PAP ONLY (Age 21-65) 1992 LIPID PANEL 2016 INFLUENZA VACCINE (#1) 2020 Procedures Procedure Name Priority Date/Time Associated Comments Diagnosis REPORT OF PROCEDURE 03/30/2020 11:41 - ENDOSCOPY URL AM CDT REPORT OF PROCEDURE 03/30/2020 11:39 - ENDOSCOPY URL AM CDT TISSUE EXAM AP Routine 03/30/2020 10:57 Results for this AM CDT procedure are i n the results section. UPPER 03/30/2020 10:33 Chronic diarrhea of ENDOSCOPY,BIOPSY AM CDT unknown origin COLONOSCOPY,BIOPSY 03/30/2020 10:33 Chronic diarrhea o f AM CDT unknown origin POCT , Routine 03/30/2020 10:12 Results for this URINE AM CDT procedure are i n the results section. after 07/02/2019 Results REPORT OF PROCEDURE - ENDOSCOPY URL (03/30/2020 11:41 AM CDT) Narrative Performed At This result has an attachment that is no t available. REPORT OF PROCEDURE - ENDOSCOPY URL (03/30/2020 11:39 AM CDT) Narrative Performed At This result has an attachment that is no t available. Tissue Exam (03/30/2020 10:57 AM CDT) Case Report Surgical Pathology Report Case: [id number] [facility] Authorizing Provider: Michael Tripp MD Collected: 03/30/2020 10:57 AM [facility] Ordering Location: [facility] ENDOSCOPY Received: 03/30/2020 02:13 PM [facility] Pathologist: Augustina Nunez MD Specimens: A) - Duodenum, random biopsies B) - Stom ach, random biopsies C) - Dist al Esophagus, random biopsies D) - Prox imal Esophagus, random biopsies E) - [place] n Biopsy, Random F) - Rect um, random biopsies DIAGNOSIS A. SMALL BOWEL, DUODENUM, BIOPSIES: [facility] Electronically - PEPTIC DUODENITIS [facility] kevin d by [facility] Mayra B. STOMACH, RANDOM BIOPSIES: MD Augustina on - CHRONIC INACTIVE GASTRITIS 04/01/2020 at 8:22 - CHEMICAL/REACTIVE GASTROPATHY AM C. ESOPHAGUS, RANDOM BIOPSIES: - REFLUX ESOPHAGITIS D. ESOPHAGUS, PROXIMAL, BIOPSIES: - REFLUX ESOPHAGITIS E. COLON, RANDOM BIOPSIES: - MELANOSIS COLI, FOCAL F. RECTUM, RANDOM BIOPSIES: - BENIGN RECTAL MUCOSA WITH LYMPHOID AGGREGATE SAUNDRAK/mustapha Signing Pathologist Direct Phone Line: [phone] CPT Code(s) 15039 x6; 04657 [facility] CLINICAL HISTORY Procedure: colonoscopy and upper endoscopy, bio psy [facility] Pre and postop diagnosis: chronic diarrhea of unknown origin [facility] SPECIMEN SOURCE Specimen A is labeled "duode num". Received in formalin are multiple fragments of campbell-pink tissue aggregating to 0.9 x 0.4 x 0.3 cm. The specimen is entirely submitted in cassette A1. [facility] Specimen B is labeled "stoma ch". Received in formalin are multiple fragments of campbell-pink tissue aggregating to 0.6 x 0.3 x 0.2 cm. The specimen is entirely submitted in cassette B1. [facility] Specimen C is labeled "dista l esophagus". Received in formalin are multiple fragments of campbell-white tissue aggregating to 0.6 x 0.6 x 0.2 cm. The specimen is entirely submitted in cassette C1. Specimen D is labeled "proxi mal esophagus". Received in formalin are multiple fragments of campbell-white tissue aggregating to 0.7 x 0.4 x 0.3 cm. The specimen is entirely submitted in cassette D1. Specimen E is labeled "colon biopsy". Received in formalin are multiple fragments of campbell-pink tissue aggregating to 1 x 0.9 x 0.3 cm. The specimen is entirely submitted in cassette E1. Specimen F is labeled "rectu m". Received in formalin is one fragment of campbell- pink tissue measuring 0.4 x 0.1 x 0.1 cm. The specimen is entirely submitted in cassette F1. AA/pl MICROSCOPIC A. Duodenal biopsies have du odenal mucosa with increased chronic inflammatory cells in lamina propria and Michelle gland hyperplasia. No parasites, dysplasia or malignancy is identified. [facility] B. Random gastric biopsies h ave antral and oxyntic mucosa with foveolar and fibromuscular hyperplasia and focal increased chronic inflammatory cells in lamina propria. No Helicobacter pylori are seen on MEDICAL C ENTER H&E or Warthin-starry stain . No intestinal metaplasia, dysplasia or malignancy is identified. C-D: No viral, fungi, intestinal metaplasia, dys plasia or malignancy is seen. E. Random colon biopsies hav e focal pigment-laden macrophages but otherwise is unremarkable and specifically have no distortion of architecture. No cryptitis, crypt abscess, microscopic colitis, dysplasia or malignancy seen. F. Random rectum biopsies wilson ve unremarkable rectal mucosa with lymphoid aggregates. No dysplasia or malignancy is identified. SPECIAL STUDIES The interpretation of this c ase included the use of immunohistochemistry or special stains. [facility] Control Slides Examined: In -house known positive controls were evaluated along with the test tissue. These control slides run alongside of the patients sample show appropriate staining. [facility] adriane and negative controls when available are evaluated Specimen Tissue - Duodenal structure (body struct ure) Tissue specimen (specimen) - Stomach str ucture (body structure) Tissue specimen (specimen) - Distal Esop hagus Tissue specimen (specimen) - Proximal Es ophagus Tissue specimen (specimen) - Colon Biops y, Random Tissue specimen (specimen) - Rectum stru cture (body structure) Performing Organization Address City/State/Zipcode Phone Number [facility] [address] [place] [address] CENTER POCT , urine (03/30/2020 10:12 AM CDT) Pathologist Sig nature Test Urine, POC Negative Control line present?, POC Yes Background clear?, POC Yes UPT Cassette Lot #, POC [id number] UPT Cassette Expiration Date, 06-06-2021 POC Specimen Urine after 07/02/2019 Insurance Payer Benefit Plan / Subscriber ID Effective Dates Phone Addre ss Type Group BLUE BCBS PPO POS [id number] 2018-Nasrin [phone] [id number] PPO CROSS/BLUE EPO CHOICE t 2 [facility] [id number]
--- OUTSIDE RECORDS SUMMARY | 2020-07-02 09:10 | XMS REPORT | Continuity of Care Document ---
:1970 Author Organization [employer] Care Team Providers Name Role Phone [employer] Unavailable Un available Problems Problem Status Onset [...] Location Location Encounter Encounter Reason Attending ADM LA Stat Source Details Type Number For Provider Date Date Visit Outpatient [id number] 09/10 [facility] Outpatient [id number] 09/10 09/11 Physicians /2019 [facility] Outpatient [id number] KNOWLEDGE MANAGER 09/25 [facility] Ambulatory [id number] KNOWLEDGE MANAGER 09/25 09/25 Physicians Pre-Reg VISIT /2019 [facility] Surgery Procedures Procedure Code Date Perfomer Comments Source Appendectomy [id number] [facility] Partial colectomy [id number] [facility] Assessment and Plan No [...]
--- OUTSIDE RECORDS SUMMARY | 2020-07-02 09:11 | XMS REPORT | Continuity of Care Document ---
:1970 Author Organization [facility] t Address [address] [place] [address] Care Team Providers Name Role Phone Nam Patiño Primary Care Physician ALEX GROVES Attending Clinician Unavailable Alex Groves MD Attending Clinician Mary Zaragoza MD Attending Clinician [phone] VISIT, MPB Attending Clinician Unavailable ALEX GROVES Admitting Clinician Unavailable Payers Payer Name Policy Type Policy Effective Date Expiration Date Sour ce Number BLUE CROSS/BLUE [id number] 2018 [facility] POS EPO Center [id number] [phone] [address], [place] [address]NCI Problems Condition Condition Condition Status Onset Resolution Last Treating Co mments Source Name Details Category Date Date Treatment Clinician Date Depressive Problem Active 2019-09-27 M emoria disorder 23:16:42 l (disorder) Mane russo Depressive disorder (disorder) Active Problem 09/27/2019 [facility] Joint pain Problem Active 2019-09-27 M emoria (finding) 23:16:42 l Joint Basil pain (finding) Active Problem 09/27/2019 [facility] Allergies, Adverse Reactions, Alerts Allergy Allergy Status Severity Reaction(s) Onset Inactive Treating Comm ents Source Name Type Date Date Clinician No Known No Known Active Memori a Medicati Medicati l on on Basil Allergrobert Santos s s Social History Social Habit Start Date Stop Date Quantity Comments Source History SDOH [facility] Std Dr[facility] Medica [facility] Center History SDOH [facility] Alcohol Binge Medical Annia ter Sex Assigned At [facility] Tobacco use and 2020-03-30 2020-03-30 Never used [facility] kes - exposure 00:00:00 00:00:00 Medical Center Alcohol intake 2020-03-30 2020-03-[address] [facility] [address] [facility] - 00:00:00 00:00:00 non-drinker of Medical Ce nter alcohol (finding) History SDOH 2020-03-27 2020-03-[address] [facility] [address] kes - Alcohol Frequency 00:00:00 00:00:00 [facility] Smoking Status Start Date Stop Date Source [facility]oker [facility] Medications Ordered Filled Start Stop Current Ordering Indication Dosage Frequency Signature Comments Components Source Medication Medication Date Date Medication? Clinician (SIG) Name Name ondansetron Yes 4mg Take [address] (ZOFRAN) 4 8-24 by mouth 2 Mc es - MG tablet 13:24: (two) Medical 22 times Center daily as needed for Nausea. pantoprazol Yes 40mg QD Take [address] [facility] 8-24 by mouth [facility] - (PROTONIX) 13:24: daily. Medic al 40 MG 22 Center tablet Vital Signs Vital Name Observation Time Observation Value Comments Source Systolic blood 2020-03-30 12:00:00 114 mm[Hg] [facility] pressure [facility] Diastolic blood 2020-03-30 12:00:00 78 mm[Hg] [facility] S t [facility] Heart rate 2020-03-30 12:00:00 70 /min [facility] Respiratory rate 2020-03-30 12:00:00 28 /min [facility] Oxygen saturation in 2020-03-30 12:00:00 100 /min [facility] - Arterial blood by Medical Ce nter Pulse oximetry Body temperature 2020-03-30 11:33:00 36.56 Svitlana [facility] Body height 2020-03-30 10:00:00 162.6 cm [facility] Body weight 2020-03-30 10:00:00 88.451 kg [facility] BMI 2020-03-30 10:00:00 33.47 kg/m2 [facility] Systolic (mm Hg) 2019-09-10 20:59:00 Asifkalyani staton [place] Diastolic (mm Hg) 2019-09-10 20:59:00 [facility] origrady [place] Heart Rate 2019-09-10 20:59:00 [facility] Height 2019-09-10 20:59:00 160.02 cm [facility] Weight 2019-09-10 20:59:00 [facility] BMI Calculated 2019-09-10 20:59:00 [facility] [place] Procedures Procedure Date / Time Performed Performing Clinician [facility] sandra REPORT OF PROCEDURE - 2020-03-30 11:41:09 Sheikh [facility] REPORT OF PROCEDURE - 2020-03-30 11:39:31 Sheikh [facility] TISSUE EXAM 2020-03-30 10:57:00 Sheikh [facility] COLONOSCOPY,BIOPSY 2020-03-30 10:33:[address] [facility] UPPER ENDOSCOPY,BIOPSY 2020-03-30 10:33:00 Groves [facility] POCT , URINE 2020-03-30 10:12:00 Chelo Zaragoza [facility] Appendectomy [facility] Partial colectomy [facility] Plan of Care Planned Activity Planned Date Details Comments Source Future Scheduled 2020-04-[address] [facility] - Test 00:00:00 (#1) [code = [facility] INFLUENZA VACCINE (#1)] Future Scheduled [address] [facility] Test 00:00:00 (procedure) [code = [facility] [id number]] Future Scheduled [address] [facility] [facility] - Test 00:00:00 malignant neoplasm Medical C enter of cervix (procedure) [code = 567629424] Encounters Start End Encounter Admission Attending Care Care Encounter Source Date/Time Date/Time Type Type Clinicians Facility Department ID 2019-09-25 2019-09-25 Outpatient VISIT, [facility] [id number] 16:00:00 16:00:00 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 2019-09-10 2019-09-10 Outpatient [facility] [id number] 14:30:00 23:59:59 00 Results Test Description Test Time Test Comments Results Result Comments Source Tissue Exam 2020-04-01 08:22:00 Test Item Value Reference Range Interpretation Comme nts Case Report (test code = 104) Surgical Pathology Report Case: [id number] Authorizing Provider: Michael Groves MD Collected: 03/30/2020 10:57 AM Ordering Location: [facility] Received: 03/30/2020 02:13 PM SERVICES Pathologist: Augustina Nunez MD Specimens: A) - Duodenum, random biopsies B) - Stomach, random biopsies C) - Distal Esophagus, random biopsies D) - Proximal Esophagus, random biopsies E) - Colon Biopsy, Random F) - Rectum, random biopsies DIAGNOSIS (test code = 3220) d9mlpRNqSJCdj6vuCNJkyHBqYpJdSpUwAcBvZb pcd [file] YRJtPBLCeANXSBDPGQVhqMUVRoqJJaPYBuWC7kK5m ZCUcZSKhoPtFHM9BIFaGcZ5NNXBSUZZUMIVxpdSLl AROuCMwgUYBkEq0oEIWHUUmJB4OMPXCMXJ9TJ57zX xiHCOHKJYW0RYJaykFiQHYiZXYCMbzFPMLOK13TND SFFAQSRlBcrHJtLVYgvgHIZsLQI52SIEHQDZZxDZR VN0eNBZTZOXGGOL2YX2mUVjktvIGoOKHmHZ4wNaNJ LPSAOOHHE9MBXAlSXIoTIUviDMYtxEBfPAClKIXGA E1UXFRRBS7AU35sEypWKVARENX0ZQCmvaRjZNSnGO 8VLSBVB8VKLiPQC1gVMCTKQ1EPSEijTVNhvTZpIKB yAPKHT4SQWFlzCgFUDF6TKRDJI9WGUTFINbxrRAYk NIVcFLMTYO2CP90yJiWRRSMAMY3VH74KRZOZSJZVD NvVMOOLO8vXACKLK6LNJ9CLEHtxLUOctDAhXX6aOw 1oqFqoLVT3p6nrtRLrONArlEDdCDPcCGkjofTcSFW jDtiknufsJYBgIUN5zwKwLGBhGRkvXZUlUYtuZu6v tSOsfFcmUpZoRLAus5hlkdADfdlapQt1t6omAJLzV pJ2eDYtQAevM1dztjRhnZFrBDKrXXv2jH65SZEskZ 2dtJVlOFlmctSwTuI7EHptYGYvKvE5KWJxaIEtVQZ uV3uwYNWkIYvdDNIbYTrwuHOpNJZ0jUupw9G6gROb eRZqzMkxSwFeNjSlDfNYz3MfGGk3lRsnD7KmVCLcS qD6zFBvZMZzHRkhLNXuVSJolxD7uP15QQdzkbW8dQ Nus0Zzw35wc761iX5ckOCuACG1QFKaMUDnoWMzZHI uYAZ5GKEvnPUoC7ruCUHcCY1pksesECrhGIplQNZi dDI1HLXruXTlK0BbFZEpYThxRSMlovu4ZzVqRb1no NGzaHfjKVqfg5fzy1prfSWiPjn4VHDdCjAfVjjaCG vpy0Iwq2hvAEBmez6jRWO4kQLykScxn0B6nEPyNMI vgICgFNSfWO2klFDaIYNfmL6vxkrkVLCoUfBnbxcu GDHfePdaykGySt1bsQnjXBX5BOtgB1czfB9hOfC5Y SrhS4gapV6wWLj8NHapDMLrkWY0igB4FPQneLAoX1 KayF3wIUJuPY7bphg3z2taSPF6CKjoHYVfGwW9xzB 9RZEndBZqYSGikSscRYbal147YNO4LgMsHOMwp6Df P2ZphYfmN25jnMiqT38wFRSulDgghV5qpXrkcJ0iL tJbSwAqFQlseFuuLJ6mJWNqW0myuTVdRHFnUNOdJ7 xzQpOxyA3exEfpUTybcoQrGNNrYbq8PXQvdIUpSBH gObe2KLPoYHTgQ30fesfsDUO9tE4zr9gjy4YuBGcw DYZ0MIDns72xXTgdrdA2AJtlGx4aXjQkKEI8NKbwA XJ9fQ== CPT Code(s) (test code = 3357) g5kdmOHtJEFvtMZoUwIpFQMzUWXxr0gpIWYr bGFuZ uUqElJnEsEpDbdusEAeXPXoDgCwo9noc530qWQus6 rvVDNfFiX1sEDqEYUktLVjL882q9hfz4wghyJbnAJ 8HQBwCVD7LXcqykLumoZ7BRgwsDTbXjX0VWyjbzNk PAvurvFkjkCqOah4OEUhV202CPB2nYajs0yrTTE0Q LDpMXWdIzEiFf2hpZCvK546EHDdOYSXXUVztPa4RL KxoeSkjhIavZWEj926J429c9zaELJpyjRydMmYcoe kg1uzQ001QYOkdBWjfmOuMwIpSTDuyIRkfCJ4PSBi LY9bvlzrApEcJA4ovmxaRsHyRW2kqkw9AbQiGT3bw kbrEvXrPZdyXWBexcupLLFsm8WtkauuDI3yT5Jaw1 U5xO3zjSOjYAYkdGHqEzSqIRMtmw8jdILqBLwou6Q hXGK6ozL6rQWhoDXpAFOiKL32Zfuym5RiDjzaXFD0 IHKcieAcz3Jga5wxZaUebhUkQ6peT7NuEQLrPYAdX DJpFqMtknQgt9Bat0XwoWHqmIb7r9duKMHzGHAoxS zrj6vpOZP5KNEgP7G9oSOkj5mlUQleGGGkqJH7ctn xXWeaMLAbcuG5simiXAdfWUHxjPS2sonyVZacUTYu NfF9olpyMPjqKHNxUVJ6DOzho928BMB6FUvhThgcO WdlXHBnbmNvbnRccGduZGVjXHBsYWluXHBsYWluXG HpUPEwCqYenFglgDfglO8xJhFgDvEsUXgtIB2gPGI tX9qokLUaXEUwSLMxI2gcAqIzmV2vnVgkSJigjxQe TEc1FuP0QBa3EgY1MYCtRbugMVL6 CLINICAL HISTORY (test code = 3356) r0dhxJZtDUYwgZHcMsCfTUDzPGCrz5s cZGVmbGFuZ fPgTdOwDmZrEjrvuNXvQNHnBpPfk4cvr632aWWlq2 vdOKGkSkX0oHUgIVHfpFWgW067YZAjYYejp9lbc5R vRZZjsSKcf6Y9POUIvudiaQc0kJrgD81qa8Y7Alvy G5qiRYWbOHpoTMZsWNnfdDSjPHH2YBZaUZV8WHfld oEhhzK7NCdvjUDtFeN3CDd0b3paoLxxJGUrGHY3v1 ijWTijurCeWT8rwv9vhDn4u0yqgwGpLNXhTWResUZ PYODdS8DwfRhxBx2ylHy3mUuaAaztVVW8Jxm8FV9q bz26xui2iDdiYOXcktakFwO1KGbyKDTgvlriURw9Z FxtYXJnbDcyMFxtYXJncjcyMFxtYXJndDcyMFxtYX EuYvbaNYdoAARlYXP8LCkda671DRJ5KSeyv3rqv5m jdCKyQnl5ISSlLyHyZcyvMYejp3Sua4cuXICshg9d BBY6yRFgsMhwv5S2mZJnTECubPYgnwYgMJElZfV5H HzvXU4ewk64XLCaJKX8vv3lrEExhFfcnfIhzHBiTQ bjB2UeBZVst393YUZnU2IgCDIkj3Q8vlXnCqNdNTM lkGO9vkB3GZCxJFh8oTAhnqT3poZqzOClQ1bbcG79 ZaRbiVHqS9RddK48VzYguNUuU5ZkuH66VaCwtYPcL 2WeuB92LyUqxACvEIXlyDNpBu4vwVMyrCShq3IuoW EzBWbxJ26hy450LPTlpnReD9aaxRUqqjwhfCMyybl bGGkcusRqJKDoKIUqYDcgCODgYTDyHrClvZcbiL1n LcYvAiIfOYUKhi0lDHH6kcZ7OEEifW2nq9Xku1F8L KKzCLP0cJTuiuLxbdTwd9YkyNhoFWGvg2LjyBamMD GtKMTjQUWbIEFoa9I4n6BeNYxbP72sl1anKyNkwKQ lpmorSAJhVOYamPQuVM8rZJAyy55wb82kt5KxO9qg XHBhcn0= SPECIMEN SOURCE (test code = 3377) n7wvlAZbYWHppAMtKvAgZWLpRMBtf3qc ZGVmbGFuZ mJbCxZoVpNkIykggRAoQRXdWbGhw1lil275rOGhd5 saBIToZfS6mBOyHFQgpHDrN265PDMoNTdjj0irt5Q yXRYzwCYcw6E6RZLCzvjvlEi3jJduT17vq0R9Nyjx C0umNFEuZBeiVIGmMQneeBMwHNV3EMIlUVN8CLvky dOysaC5CVjvcTPvBnC1NVq5f1gheVwxDXNqOKI0v0 ynNGitsyKrRG6mdb3zqFe3h4vcmqUmOLUfHFSpqKG XZASpV4SdaHhdZg4beRs7fJfrOxmnGCZ2Djk6PI9q wh47hnm3aHxwIXCozicsGyF7YEvbAHOtikmwSYb0F FxtYXJnbDcyMFxtYXJncjcyMFxtYXJndDcyMFxtYX BwEjdcTVcxNGMoLRF9GRrqb528QBO3HCdco5jzh7j mrMTnSen8AUIvFoHeJpowHRizz7Bpc0uvVTDcay9z SZN8tSInnPocc2F7kJYjVOGqxXOechRgRVFjDyN9Z UieCG4umc02KWXpLYC9gl0lrLZkyXafcfDsdBQuAE nuY8FaOWXyx387WKUbN7TzHTRgb6E2bvObYnYjJZX otAS8bnJ5FSPfREt5kRHwmcX6ywDmmBNuL4ovmH34 EuBbgONwZ9UaiL13CaYkgOPxA3GghK66SaQibZZqN 6OiuD37YaGxaIQsUBVynKGxIz4mcZHtrZZnc4AzuR SdBLpoR64kt680UWQysaWjF6dcyVIqoqfyjMYlfua eCVixjfXkNNHsMDYkCDmnSTHrHFJhSvGdyMgukF4m QqOfGdKrPGUPqQEkoK1ppoWMYIqdCTtpAiRcRSBxL tO2d5JovbFwBs1rNiKaJBt2QVBknO5jLh2zqEYscT 0xARCqTP32bDDneEqkKYAhYYzeIE11wuVbVyXgoPz wwU6zSdEjNjGhBZM7OS7utSpoe5hgcBYjudogUOaz cuWtWYF1cPApnGYeEHunacKlJDYdueiugG6lDS79D QtxJD75HYmrZL4eOSPrKwNIkRSsy9VaP9tbMB0qrS EdDG50nAJsaQuhe4ZqfDj1nMLcTXqcYMDrx4GduHP zIWGmIeEqtXItMATcctJTqQWqoX3hujJUGJqhMZty FgJpLOTbLvM4n53vT8naLvALZNDnkTLwDBUkfmSeb 4GpRZplkpXrnmNgwYZcsFviyOVkXfGzK15nfdWhSV 1qSXVncu8skR2sOLWvb6E7GDAiV7wpYRpriUsdKaR 7bhVaGiVzkNVeBsYhzFNpDwLeK89kIMLqHLXlqUIu nR5dlhHshtNjwoBabzHlzNPrgFCgdNX7YXOlxJ0bW 2Peg3M4jJZfDyWuCNsvANBruMCiOGQiKKUcqATcWF MgaXMgbGFiZWxlZCAiZGlzdGFsIFxwbGFpblxmMVx oroWlSMRpi5GkBMm8rzRtBEVlY2HqlrBlDVjmZJAi uz3hcGslXFLaJXBhmDb4bLUfGJQyzwNqeUAqtQYlj 0ZewBEzPEqayQVhXBGqf1B8HXNfP0ptDXcsbWxwPm K5ccNbTvTnuEHwBkAynBEbKuHkU70aBSYyNCGxhVQ ybK1celJeezDcmqUrieVtfTUlaMIooVH3XBRmeX2o F2Xyh6I1dZSxMkXhQXAsoUWqHYAypeQJfOHekG1fy cONWXrhHRayUzTgHETqMaOua5gzxXDaXQYkt4VrQX q8jyFzQPYlB1DsqzVpEWxeCLDscp7ziCqoQBLrYZL lkBj7uXDyPKAmwpUvwAJyxMXwp3XvkFXkJUykoBQu EIZwx4O2RUPtL4gkEPyrzQgsItP8plKnAltokTPsQ tSrtPTuOwYuE79pTQPnVKSxmZAopA9hgbMejiRbfo WbmoFchZOkqVDdaVR9EAAahA9pL5Tei0I2dJGkWWV yYJLhgSCrNYMvlkNFzYFasB8tinLJYTtqJRoqLoZh MMKrLpPccI6jYCSpp6LomJNvVBCsL1BxdtInMFmdY HLbwg9ypPlxEJXgDHZnfYs0uRCcIDXcfzXthDFcfO Vsr3UftQIjMOQasgampBrkj0UfHEXiI1XaQ6F6lW4 xFWTzQDCqxHJqHixwgKGiHvJaQ44hWCKdQMUcfSMg tI1emxCwepAprjFuwaLpcJDssBIglXG8SPGusB7eM 5Gsj3U8bRYoBZMiNEIujUVtLWHwttARjUIzgF6ieq EUQTkdGJjmQeLbXZHlAtOiG6G6sMJuXIQtF2NuwaC gOJyaTZGofx9meGvbYIwiFC6xYEDkckSpqYGblDYs WaB1EQ4zhPebbnA5rAWyxTGfdFRpn3KphY6wXSGhQ IP0EQPjFBH7LVIzENHhnM0hECkvPVJlNOFqvQYaTM cbUZJkvOapRVe0VPQ6Uj8vkDWdTKOmdxIrFNAlLMX 6APNAFY7hMIMPX7PuOFVtUNjgHQNgLVTmAdGjbFDe fQ== MICROSCOPIC DESCRIPTION (test code = f5vahBAcDIKhuGLtWnGkAAMpQZF rl6kuWPTlvVWxM 3371) mCrJvTdWyTgRyiboUDwFIOlSnYlw1sww274aKGga5 ecXTVwDnQ5cFNnXUDkfGVsC929YLEfSKcjx9qsl2J yPSVazHNaw1H9ZSKWodubwVo2gYuaQ00ty5W9Uvll B9waGUSqNQxnAKBiCQyevQDtXPJ3DGDfBVA1OOate iVjfeU0AHdamLQqTvE5QAn3v1mytTpbXJOzWNJ1x4 uvCPpsdfWqJI6cci6pbHt0l9fkedVtLXWpKUJwsZL UKKIsG8WekKhvTg2izEd4bSpfGjupZJU9Waw2HL9o ug27jaf0oPytOLNayuvbOkD5QQzjHQLufteyXCy9E FxtYXJnbDcyMFxtYXJncjcyMFxtYXJndDcyMFxtYX [file] iBccGFyfQ== SPECIAL STUDIES (test code = 3376) n2azqEPxPPLbjBYjVzHcPAXhUAGvo9dd ZGVmbGFuZ [file] XJ9 [facility] [id number] 08:22:00Surgical Pathology Report Case: [id number] Authorizing Provider: Michael Groves MD Collected: 03/30/2020 10:57 AM Ordering Location: [facility] Received: 03/30/2020 02:13 PM SERVICES Pathologist: Augustina Aguilar MD Specimens: A) - Duodenum, random biopsies B) -Stomach, random biopsies C) - Distal Esophagus, random biopsies D) - Proximal Esophagus, random biopsies E) - Colon Biopsy, Random F) - Rectum, random biopsies A. SMALL BOWEL, DUODENUM, BIOPSIES: - PEPTIC DUODENITIS B. STOMACH, RANDOM BIOPSIES: - CHRONIC INACTIVE GASTRITIS - CHEMICAL/REACTIVE GASTROPATHY C. ESOPHAGUS, RANDOM BIOPSIES: - REFLUX ESOPHAGITIS D. ESOPHAGUS, PROXIMAL, BIOPSIES: - REFLUX ESOPHAGITIS E. COLON, RANDOM BIOPSIES: - MELANOSIS COLI, FOCALF. RECTUM, RANDOMBIOPSIES: - BENIGN RECTAL MUCOSA WITH LYMPHOID AGGREGATENZK/pl Signing Pathologist Direct Phone Line: [phone] signed by Augustina Nunez MD on 04/01/2020 at 8:22 [id number]; [id number]: colonoscopy and upper endoscopy, biopsyPre and postop diagnosis: chronic diarrhea of unknown originSpecimen A is labeled "duodenum". Received in formalin are multiple fragments of campbell-pink tissue aggregating to 0.9 x 0.4 x 0.3 cm. The specimen is entirely submitted in cassette A1. Specimen B is labeled "stomach". Received in formalin are multiple fragments of campbell-pink tissue aggregating to 0.6 x 0.3 x 0.2 cm. The specimen is entirely submitted in cassette B1. Specimen C is labeled "distal esophagus". Received in formalin are multiple fragments of campbell-white tissue aggregating to 0.6 x 0.6 x 0.2 cm. The specimen is entirely submitted in cassette C1. Specimen D is labeled "proximalesophagus". Received in formalin are multiple fragments of campbell-white tissue aggregating to 0.7 x 0.4x 0.3 cm. The specimen is entirely submitted in cassette D1. Specimen E is labeled "colon biopsy". Received in formalin are multiple fragments of campbell-pink tissue aggregating to 1 x 0.9 x 0.3 cm. The specimen is entirely submitted in cassette E1. Specimen F is labeled "rectum". Received in formalin is one fragment of campbell-pink tissue measuring 0.4 x 0.1 x 0.1 cm. The specimen is entirely submitted incassette F1. AA/Emilia. Duodenal biopsies have duodenal mucosa with increased chronic inflammatory cells in lamina propria and Michelle gland hyperplasia. No parasites, dysplasia or malignancy is identified.B. Random gastric biopsies have antral and oxyntic mucosa with foveolar and fibromuscular hyperplasia and focal increased chronic inflammatory cells in lamina propria. No Helicobacter pylori are seenon H&E or Warthin-starry stain. No intestinal metaplasia, dysplasia or malignancy is identified.C-D: No viral, fungi, intestinal metaplasia, dysplasia or malignancy is seen. E. Random colon biopsies have focal pigment-laden macrophages but otherwise is unremarkable and specifically have no distortion of architecture. No cryptitis, crypt abscess, microscopic colitis, dysplasia or malignancy seen. F. Random rectum biopsies have unremarkable rectal mucosa with lymphoid aggregates. No dysplasia ormalignancy is identified. The interpretation of this case included the use of immunohistochemistry or special stains.Control Slides Examined: In-house known positive controls were evaluated along withthe test tissue. These control slides run alongside of the patients sample show appropriate staining. Internal positive and negative controls when available are evaluatedPOCT , [id number] 10:12:00 Test Item Value Reference Range Interpretation Comments Test Urine, POC (test Negative code = 1090797) Control line present?, POC (test Yes code = 9019000) Background clear?, POC (test code Yes = 9542427) UPT Cassette Lot #, POC (test code 5914800 = [id number]) UPT Cassette Expiration Date, POC 06-06-2021 (test code = 0577416) Lab Interpretation (test code = Normal 89041-1) [facility]
[2020-07-02 09:46] LABS: Basophils % 0.6 % (0-1.3); Hematocrit 43.3 % (36.0-45.0); Lymphocytes % 18.1 % (15.3-44.8); MPV 7.3 fL (7.6-11.3); Protime INR 1.07; RBC Red Blood Cell Count 5.13 M/uL (3.86-4.86)
[2020-07-02 10:00] LABS: ALT/SGPT 24 U/L (12-78); AST/SGOT 17 U/L (15-37); Alkaline Phosphatase 93 U/L (45-117); BUN Blood Urea Nitrogen 13 mg/dL (7-18); Bicarbonate 26 mmol/L (21-32); Bilirubin Direct < 0.1 mg/dL (0-0.2); Bilirubin Total 0.5 mg/dL (0.2-1.0); Glucose Level 96 mg/dL (74-106); Magnesium 2.4 mg/dL (1.8-2.4); NT PRO-BNP 38 pg/mL (<125); Potassium 4.2 mmol/L (3.5-5.1); Sodium Level 141 mmol/L (136-145); Troponin (Emerg Dept Use Only) < 0.02 ng/mL (0.0-0.045)
--- NOTE | 2020-07-02 10:35 | RAD REPORT ---
EXAM DESCRIPTION: [place] Single View07/02/2020 9:48 am CLINICAL HISTORY: Chest pain COMPARISON: February 2020 FINDINGS: The lungs appear clear of acute infiltrate. The heart is normal size IMPRESSION: No acute abnormalities displayed
[2020-07-02] MEDS ORDERED: MAGNES/ALUMIN/SIMET 30ML UCUP ONE (10:56)
--- NOTE | 2020-07-02 12:36 | EDPHYS ---
Physician Documentation [facility] Name: Reyna Garcia Age: 49 yrs Sex: Female : 1970 Arrival Date: 07/02/2020 Time: 09:09 Bed 4 Private MD: ED Physician Chelita Baez HPI: 07/02 09:43 This 49 yrs old Female presents to ER via Ambulatory with complaints of Chest ma2 Pain. 09:43 The patient or guardian reports chest pain that is located primarily in the substernal ma2 area. Onset: gradually, 1 hour(s) ago. Associated signs and symptoms: Pertinent positives: Pertinent negatives: cough, diaphoresis, headache, lightheadedness, shortness of breath, vomiting. The chest pain is described as aching. Severity of pain: At its worst the pain was moderate in the emergency department the pain is unchanged. The patient has not experienced similar symptoms in the past. 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 - Social history:: Smoking status: Patient denies any tobacco usage or history of. Patient/guardian denies using alcohol, street drugs, The patient lives with family. - Family history:: not pertinent. - Hospitalizations: : No recent hospitalization is reported. ROS: 09:43 Constitutional: Negative for fever, chills, and weight loss. ma2 09:43 All other systems are negative. Exam: 09:43 Constitutional: This is a well developed, well nourished patient who is awake, alert, ma2 and in no acute distress. Head/Face: Normocephalic, atraumatic. Eyes: Pupils equal round and reactive to light, extra-ocular motions intact. Lids and lashes normal. Conjunctiva and sclera are non-icteric and not injected. Cornea within normal limits. Periorbital areas with no swelling, redness, or edema. ENT: Nares patent. No nasal discharge, no septal abnormalities noted. Tympanic membranes are normal and external auditory canals are clear. Oropharynx with no redness, swelling, or masses, exudates, or evidence of obstruction, uvula midline. Mucous membranes moist. Neck: Trachea midline, no thyromegaly or masses palpated, and no cervical lymphadenopathy. Supple, full range of motion without nuchal rigidity, or vertebral point tenderness. No Meningismus. Chest/axilla: Normal chest wall appearance and motion. Nontender with no deformity. No lesions are appreciated. Cardiovascular: Regular rate and rhythm with a normal S1 and S2. No gallops, murmurs, or rubs. Normal PMI, no JVD. No pulse deficits. Respiratory: Lungs have equal breath sounds bilaterally, clear to auscultation and percussion. No rales, rhonchi or wheezes noted. No increased work of breathing, no retractions or nasal flaring. Abdomen/GI: Soft, non-tender, with normal bowel sounds. No distension or tympany. No guarding or rebound. No evidence of tenderness throughout. Back: No spinal tenderness. No costovertebral tenderness. Full range of motion. Pelvic Exam: Normal external genitalia. Speculum exam with closed cervical os, no discharge or bleeding noted. Bimanual exam with normal adnexa, no adnexal or cervical motion tenderness. Normal uterus. MS/ Extremity: Pulses equal, no cyanosis. Neurovascular intact. Full, normal range of motion. Neuro: Awake and alert, GCS 15, oriented to person, place, time, and situation. Cranial nerves II-XII grossly intact. Motor strength 5/5 in all extremities. Sensory grossly intact. Cerebellar exam normal. Normal gait. Vital Signs: 09:12 BP 140 / 83 LA; Pulse 97; Resp 19 S; Temp 98.1; Pulse Ox 100% on R/A; Pain 7/10; jl7 09:12 BP 147 / 104 RA; jl7 10:44 BP 116 / 79; Pulse 73; Resp 17 S; Pulse Ox 100% on R/A; jl7 11:38 BP 116 / 76; Pulse 74; Resp 18; Pulse Ox 100% ; Pain 3/10; jl7 12:23 BP 115 / 81; Pulse 70; Resp 12; Pulse Ox 100% ; jl7 MDM: 09:13 Patient medically screened. ma2 09:43 Differential diagnosis: gastroesophageal reflux disease (GERD), hiatal hernia, ma2 pancreatitis, stable angina. 12:35 HEART Score: History: Slightly Suspicious (0), ECG: Normal (0), Age: < or = 45 years ma2 (0), Risk Factors: No Risk Factors Known (0), Troponin: < or = 1 x Normal Limit (0), Total Score = 0. The patient was not given aspirin in the Emergency Department. Data reviewed: vital signs, nurses notes. Counseling: I had a detailed discussion with the patient and/or guardian regarding: the historical points, exam findings, and any diagnostic results supporting the discharge/admit diagnosis, the presence of at least one elevated blood pressure reading (>120/80) during this emergency department visit, the need for outpatient follow up. 07/02 09:13 Order name: Basic Metabolic Panel; Complete Time: 10:48 ma2 07/02 09:13 Order name: CBC with Diff; Complete Time: 10:48 ma2 07/02 09:13 Order name: LFT's; Complete Time: 10:48 ma2 07/02 09:13 Order name: Magnesium; Complete Time: 10:48 ma2 07/02 09:13 Order name: NT PRO-BNP; Complete Time: 10:48 ma2 07/02 09:13 Order name: PT-INR; Complete Time: 10:48 ma2 07/02 09:13 Order name: Troponin (emerg Dept Use Only); Complete Time: 10:48 ma2 07/02 09:13 Order name: XRAY Chest (1 view); Complete Time: 10:48 ma2 07/02 09:13 Order name: EKG; Complete Time: 09:14 ma2 07/02 09:13 Order name: Cardiac monitoring; Complete Time: 09:28 ma2 07/02 09:13 Order name: EKG - Nurse/Tech; Complete Time: 09:28 ma2 07/02 11:36 Order name: Troponin (emerg Dept Use Only); Complete Time: 12:35 ma2 07/02 09:13 Order name: IV Saline Lock; Complete Time: 09:28 ma2 07/02 09:13 Order name: Labs collected and sent; Complete Time: 09:28 ma2 07/02 09:13 Order name: O2 Per Protocol; Complete Time: :28 ma2 07/02 09:13 Order name: O2 Sat Monitoring; Complete Time: 09:28 ma2 Administered Medications: 10:44 Drug: GI Cocktail without - (Maalox Suspension 30 ml, Lidocaine Liquid 2 % 15 jl7 ml) Route: PO; 11:10 Follow up: Response: No adverse reaction; Pain is decreased jl7 13:13 Not Given (Patient Refused): Ativan 1 mg IVP once jl7 Disposition: 07/02/20 12:35 Discharged to Home. Impression: Chest pain, unspecified. - Condition is Stable. - Discharge Instructions: Nonspecific Chest Pain. - Prescriptions for Maalox Advanced 200- 200-20 mg/5 mL Oral suspension - take 20 milliliter by ORAL route 3 times per day; 600 milliliter. Pepcid 20 mg Oral Tablet - take 1 tablet by ORAL route once daily for 10 days; 10 tablet. - Medication Reconciliation Form, Thank You Letter, Antibiotic Education, Prescription Opioid Use form. - Follow up: Private Physician; When: Tomorrow; Reason: Continuance of care. Signatures: Dispatcher [employer] Niurka Gilliam RN RN jl7 Anderson Rainey RN RN jd3 Chelita Baez MD MD ma2 Corrections: (The following items were deleted from the chart) 13:13 12:35 07/02/2020 12:35 Discharged to Home. Impression: Chest pain, unspecified. jd3 Condition is Stable. Prescriptions for Maalox Advanced 200-200-20 mg/5 mL Oral suspension - take 20 milliliter by ORAL route 3 times per day; 600 milliliter, Pepcid 20 mg Oral Tablet - take 1 tablet by ORAL route once daily for 10 days; 10 tablet. and Forms are Medication Reconciliation Form, Thank You Letter, Antibiotic Education, Prescription Opioid Use. Follow up: Private Physician; When: Tomorrow; Reason: Continuance of care. ma2
--- NOTE | 2020-07-02 12:36 | ER ---
Nurse's Notes [facility] Name: Reyna Garcia Age: 49 yrs Sex: Female : 1970 Arrival Date: 07/02/2020 Time: 09:09 Bed 4 Private MD: Diagnosis: Chest pain, unspecified Presentation: 07/02 09:12 Chief complaint: Patient states: Woke at 0230 with midsternal chest pain, radiates jl7 straight through to the back, constant, described as burning. 09:12 Coronavirus screen: Client denies travel out of the [place] in the last 14 days. At this jl7 time, the client does not indicate any symptoms associated with coronavirus-19. Ebola Screen: No symptoms or risks identified at this time. Initial Sepsis Screen: Does the patient meet any 2 criteria? No. Patient's initial sepsis screen is negative. Does the patient have a suspected source of infection? No. Patient's initial sepsis screen is negative. Risk Assessment: Do you want to hurt yourself or someone else? Patient reports no desire to harm self or others. Onset of symptoms was July 02, 2020 at 02:30. Care prior to arrival: None. Transition of care: patient was not received from another setting of care. 09:12 Method Of Arrival: Ambulatory jl7 09:12 Acuity: KWASI 2 jl7 Triage Assessment: 09:25 General: Appears in no apparent distress. uncomfortable, Behavior is cooperative, jl7 appropriate for age, anxious. Pain: Complains of pain in mid-sternal area Pain radiates to thoracic area Pain currently is 7 out of 10 on a pain scale. at worst was 10 out of 10 on a pain scale. Quality of pain is described as burning, sharp, Pain began 0230 Is continuous. Neuro: Level of Consciousness is awake, alert, obeys commands, Oriented to person, place, time, situation. Cardiovascular: Patient's skin is warm and dry. Chest pain is described as Pain is 7 out of 10 on a pain scale. quality is burning, sharp. Respiratory: Airway is patent Respiratory effort is even, unlabored, Respiratory pattern is regular, symmetrical. GI: No signs and/or symptoms were reported involving the gastrointestinal system. : No signs and/or symptoms were reported regarding the genitourinary system. Derm: Skin is pink, warm \T\ dry. Musculoskeletal: No signs and/or symptoms reported regarding the musculoskeletal system. NET APPLICATION ARCHITECT: 09:25 LMP N/A - control method jl7 Historical: - Allergies: : No Known Allergies; jl7 - Home Meds: : None [Active]; jl7 - PMHx: : Migraines; jl7 - PSHx: : Colectomy- partial; jl7 - Immunization history:: Adult Immunizations unknown. - Social history:: Smoking status: Patient denies any tobacco usage or history of. Patient/guardian denies using alcohol, street drugs, The patient lives with family. - Family history:: not pertinent. - Hospitalizations: : No recent hospitalization is reported. Screenin: Abuse screen: Denies threats or abuse. Denies injuries from another. Nutritional jl7 screening: No deficits noted. Tuberculosis screening: No symptoms or risk factors identified. Fall Risk IV access (20 points). Total Magallon Fall Scale indicates No Risk (0-24 pts). Assessment: :27 General: See triage assessment. jl7 10:44 Reassessment: Patient appears in no apparent distress at this time. No changes from jl7 previously documented assessment. Patient and/or family updated on plan of care and expected duration. Pain level reassessed. Patient is alert, oriented x 3, equal unlabored respirations, skin warm/dry/pink. 11:38 Reassessment: Patient appears in no apparent distress at this time. Patient and/or jl7 family updated on plan of care and expected duration. Pain level reassessed. Patient is alert, oriented x 3, equal unlabored respirations, skin warm/dry/pink. Reports pain 3 or 4/10 at this time. Pt ambulated to bathroom with steady gate Patient states feeling better. 13:12 Reassessment: Patient appears in no apparent distress at this time. Patient and/or jd3 family updated on plan of care and expected duration. Pain level reassessed. Patient is alert, oriented x 3, equal unlabored respirations, skin warm/dry/pink. pt reported understanding of discharge instructions, even and steady gait upon discharge. Patient states feeling better. Vital Signs: 09:12 BP 140 / 83 LA; Pulse 97; Resp 19 S; Temp 98.1; Pulse Ox 100% on R/A; Pain 7/10; jl7 09:12 BP 147 / 104 RA; jl7 10:44 BP 116 / 79; Pulse 73; Resp 17 S; Pulse Ox 100% on R/A; jl7 11:38 BP 116 / 76; Pulse 74; Resp 18; Pulse Ox 100% ; Pain 3/10; jl7 12:23 BP 115 / 81; Pulse 70; Resp 12; Pulse Ox 100% ; jl7 ED Course: 09:09 Patient arrived in ED. ds1 09:13 Chelita Baez MD is Attending Physician. ma2 09:20 Inserted saline lock: 20 gauge in left antecubital area, using aseptic technique. Blood sv collected. Flushed left antecubital with 5 ml normal saline. 09:22 Niurka Madrid RN is Primary Nurse. jl7 09:24 Triage completed. jl7 09:25 Arm band placed on right wrist. jl7 09:27 Patient has correct armband on for positive identification. Bed in low position. Call jl7 light in reach. Side rails up X 1. cost accounting clerk on. Pulse ox on. NIBP on. 09:27 EKG done, by ED staff, reviewed by Chelita Baez MD. Patient maintains SpO2 jl7 saturation greater than 95% on room air. 09:46 XRAY Chest (1 view) In Process Unspecified. EDMS 13:13 No provider procedures requiring assistance completed. IV discontinued, intact, jd3 bleeding controlled, No redness/swelling at site. Pressure dressing applied. Administered Medications: 10:44 Drug: GI Cocktail without - (Maalox Suspension 30 ml, Lidocaine Liquid 2 % 15 jl7 ml) Route: PO; 11:10 Follow up: Response: No adverse reaction; Pain is decreased jl7 13:13 Not Given (Patient Refused): Ativan 1 mg IVP once jl7 Outcome: 12:35 Discharge ordered by . ma2 13:13 Discharged to home ambulatory, with family. jd3 13:13 Condition: stable 13:13 Discharge instructions given to patient, family, Instructed on discharge instructions, follow up and referral plans. medication usage, Demonstrated understanding of instructions, follow-up care, medications, Prescriptions given X 2. 13:13 Patient left the ED. jd3 Signatures: Dispatcher [facility] Hanh Royal RN Batsheva Mcqueen ds1 Niurka Madrid RN RN jl7 Anderson Rainey RN RN jd3 Chelita Baez MD MD ma2
[2020-07-02 14:41] VITALS: TEMP 98.1; O2SAT 100
[2020-07-02 14:47] VITALS: BP 115/81
== END 2020-07-02 13:13 | disposition home or self-care (01) ==
LOC: ER 09:08
DX: R07.9 Chest pain, unspecified (principal)
CPT/HCPCS: 36415; 71045; 80048; 80076; 83735; 83880; 84484; 85025; 85610; 93005; 99285

== ENCOUNTER 2020-12-03 00:25 | Emergency (ER) | payer BC ==
--- OUTSIDE RECORDS SUMMARY | 2020-12-03 00:28 | XMS REPORT | Continuity of Care Document ---
:1970 Author Organization [facility] t Address [address] [place] [address] Care Team Providers Name Role Phone Kaylyn Nam Primary Care Physician Radiology Attending Clinician Unavailable Doctor Unassigned, Name Attending Clinician Unavailable ALEX GROVES Attending Clinician Unavailable Alex Groves MD Attending Clinician Mary Zaragoza MD Attending Clinician [phone] VISIT, MPB Attending Clinician Unavailable ALEX GROVES Admitting Clinician Unavailable Payers Payer Name Policy Type Policy Effective Date Expiration Date Sour ce Number BLUE CROSS/BLUE [id number] [facility] Medical POS EPO Center [id number] [phone] [address], [place] [address]YBZ Problems Condition Condition Condition Status Onset Resolution [...] Memori a Medicati Medicati l on on [place] Allergie Allergie s s Social History Social Habit Start Date Stop Date Quantity Comments Source History [facility] - Alcohol Std Drinks Medica l Center History [facility] - Alcohol Binge Medical Annia ter Sex Assigned At [facility] Alcohol intake 2020-03-30 2020-03-30 Current [facility] - 00:00:00 00:00:00 non-drinker of Medical Ce nter alcohol (finding) Tobacco use and 2020-03-30 2020-03-30 Never used [facility] - exposure 00:00:00 00:00:00 Medical Center History SDOH 2020-03-27 2020-03-27 1 [facility] - Alcohol Frequency 00:00:00 00:00:00 Medical Center Smoking Status Start Date Stop Date Source Social History [facility] Medications Ordered Filled Start Stop Current Ordering [...] Source Systolic blood 2020-03-30 12:00:00 114 mm[Hg] [facility] Diastolic blood 2020-03-30 12:00:00 78 mm[Hg] [facility] S t [facility] Heart rate 2020-03-30 12:00:00 70 /min [facility] Respiratory rate 2020-03-30 12:00:00 28 /min [facility] Oxygen saturation in 2020-03-30 12:00:00 100 /min [facility] - Arterial blood by Medical Ce nter Pulse oximetry Body temperature 2020-03-30 11:33:00 36.56 Svitlana [facility] Body height 2020-03-30 10:00:00 162.6 cm [facility] Body weight 2020-03-30 10:00:00 88.451 kg [facility] BMI 2020-03-30 10:00:00 33.47 kg/m2 [facility] Systolic (mm Hg) 2019-09-10 20:59:00 Asif riasegundo [place] Diastolic (mm Hg) 2019-09-10 20:59:00 [facility] orial [place] Heart Rate 2019-09-10 20:59:00 [facility] Height 2019-09-10 20:59:00 160.02 cm [facility] Weight 2019-09-10 20:59:00 [facility] BMI Calculated 2019-09-10 20:59:00 Jairo Hardwick Procedures Procedure Date / Time Performed Performing Clinician [facility] e REPORT OF PROCEDURE - 2020-03-30 11:41:09 Sheikh [facility] REPORT OF PROCEDURE - 2020-03-30 11:39:[address] [facility] TISSUE EXAM 2020-03-30 10:57:00 Sheikh Michaelpamella Johnson [facility] COLONOSCOPY,BIOPSY 2020-03-30 10:33:00 Sheikh [facility] UPPER ENDOSCOPY,BIOPSY 2020-03-30 10:33:00 Sheikh Michaelpamella Johnson [facility] POCT , URINE 2020-03-30 10:12:00 Chelo Zaragoza I [facility] Appendectomy [facility] Partial colectomy [facility] Plan of Care Planned Activity Planned Date Details Comments Source Future Scheduled 2020-04-07 INFLUENZA VACCINE [facility] - Test 00:00:00 (#1) [code = [facility] INFLUENZA VACCINE (#1)] Future Scheduled [address] [facility] - Test 00:00:00 (procedure) [code = [facility] 15161330] Future Scheduled [address] [facility] - Test 00:00:00 malignant neoplasm Medical C enter of cervix (procedure) [code = 184898104] Encounters Start End Encounter Admission Attending Care Care Encounter Source Date/Time Date/Time Type Type Clinicians Facility Department ID 2020-09-24 2020-09-24 [facility] Radiology [facility] [id number] 14:00:34 23:59:00 Encounter SPECIALTY [id number] CARE [id number] CENTER AT [id number] RADHA [address] [facility] 2020-09-24 2020-09-24 [facility] Radiology [facility] [id number] 13:59:53 13:59:53 Encounter SPECIALTY [id number] [facility] [id number] CENTER AT [id number] RADHA [address] [facility] 2020-08-19 2020-08-19 [facility] Radiology [facility] [id number] 14:40:00 23:59:00 Encounter [place] [id number] [place] [id number] [place] [address] [id number] 2020-08-19 2020-08-19 Orders Doctor ZACH [id number] 00:00:00 00:00:00 Only Unassigned, JEANNE [id number] [place] [address]686 [id number] 2019-09-25 2019-09-25 Outpatient VISIT, [facility] [id number] 16:00:00 16:00:00 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 01 MPB 2019-09-10 2019-09-[address] [facility] [id number] 14:30:00 23:59:59 00 Results Test Description Test Time Test Comments Results Result Comments Source Tissue Exam 2020-04-01 08:22:00 Test Item Value Reference Range Interpretation Comme nts Case Report (test code = 104) Surgical Pathology Report Case: [id number] Authorizing Provider: Michael Groves MD Collected: 03/30/2020 10:57 AM Ordering Location: [facility] ENDOSCOPY Received: 03/30/2020 02:13 PM SERVICES Pathologist: Augustina Nunez MD Specimens: A) - Duodenum, random biopsies B) - Stomach, random biopsies C) - Distal Esophagus, random biopsies D) - Proximal Esophagus, random biopsies E) - Colon Biopsy, Random F) - Rectum, random biopsies DIAGNOSIS (test code = 3220) n3zcsVQdZOVvv3fbWHUqzBGtVnKqNnJbYbZuUd pcd [file] ZCYeLQWZxZLHYXQEVANxxENLWbbQWhATLfBH4zT1t GNJsVYCtvIuQFB0ZHZrSeM5ZSBDTOQPJCQIfltOGk DSGiTKxqERUtPx7jTCGWBUbKB3OGGQXITX7RP43dD hsJRBLJCWG6MIOwnxDnGJKuWSGZZsvZHILEK73CQP CPGLZUYqMxbFHlGDTyhlWEEbLNF70RYYEAKOQnKOA RE8cUKGFZBHFWRK5EM5dUQhrmeHFvIXOpAQ6pXtEV HHHPKESKD6YZNFzGWOeQQCimHYKqlDSqXJHwSQMCD N9FAEDADO6XG83jRkvEFSNMKPU5EGFokzYlVWIgWI 0LRENMS8ZWJyHIN0mGGYVTM9FYBMywBVSfrNIrOOC jWQHEO3SFIHroJwBAOF5NKCQEK6RBTIOQPbpeIWGe HNBuEBXPGN0IO22mGfQWUFZCHT7XF03HQUQLBESQX JhSVFBQW3pVFBXAZ0WGY3GKNYmcYHHuwUPsCY8kEo 3njLkcXWY0x2hasXBbHWRzkOEoJKAeNRrkvsFtVQT qWqjmwcmbUNUwMCH5spKxMINcALnfAQDhVTldHc7p dMZhuEihJgDxZFIyg1ijcqDAykzmgHa4e0cmEMWiK vF0mDQrVUjcY6kpsiIwtYNgZQByUEr0tE19WVWyjR 9miVHpGHptntJgCdV8PKfrPPXwVbP3NQKgzBDuXTL zO5cpAFXaCAiiBHQqNEjepAKgYZM7iZxly8G7wEHv xLNbvPwnFmLhZqVuApRPd0LsLGa9eIhkW6NrZHKmS fH0rALiGEJyGPgpNQPiNQXwjsC3mX42EDdlnzG1lA Dfs3Qgr20rd945mP2woYQlOZM7LYYsAMAeaLPtKOW zQZE6XBUqvTHwO3dqTHPuYS9cvonvJTqvDCeoPFNx tFT0YPIqjSXjO8KzMTLpZIgjGTOptbw7GzQkFg1hr NUiuObiTEddq9olc6kzsQGuDmv9MNBzCyGuNodvLQ tss5Svv7abVYRrqs9dTQC6mZQrpGmxv7N0uGStALA vqUBpCGJiKX1yeYHjHJFrvD8ypcksJZTnNvYneeqq XWIhpQuyjcVsFf8nfCmbBUS8NRfdF4bnlB6oAnD6N OkbI2iauC8xCMf8LBliOYKjoWO9ppC5BBEqfIZyA3 NswO1jOAUyYF1lzzn7v0fqYZL0GJxmZZQgMxE2keZ 5QRYgbBFaZTRtuTvhAFcwo841GRS8WtMoVQQzg5Zv P9GcdIrqL72xwVieS71qQLThzTpepP2wwHlnbS0cD uKpCsGvZYebkQojQX9bKGVrX6qugIWvONCtSHPsF3 tvLnJwaH9jdGzfNQwgrjGaCDQbYmw9EEVbkVYfPPL rZzn5SQMzZWMfE04amzyzSYB5mA9vu2iwm8GgTVyr UOA0XDTfc13hIJuvooG1YCphTw0eMtLqDCM2DDwxU XJ9fQ== CPT Code(s) (test code = 3357) c2bimYObKJBusPPmZqVcVUOzZUCdx3vzBJFw bGFuZ oIuGgFrYwRzTrbsbDFvIUKsOvRsi9ttp730wQQnm9 rzTFObWwJ0wUWxTTKlmFEmL522z1llx7yaegUtdFO 5XSTcYYJ4UVrezhNmhfO2TAtjyFIwUvY9OBylsxBg GLlnktGbgpXkSan8VCUbX634JTB9oUywa0dxPOM2O EEpGPNrVsJkXz1flVXcC670MFHxCOUZZZLexQq6YY CkgeUyuuExvBRPk815G535n1uxBEGobjJjoZoCokj ik9fpG895REUwuTZkdeDbNjGoWSXxaOMifVG8JKCs TM5arxjfKlNcZV3iswjgZrRhJG3pwhd6JuLsUC9vi bwzRjUxQGfkBNHoawydEPRua3QgqtupZX2bN1Xuc5 S0kS8qvHQgYYEguNHpFcEbGYXmvg9soQSxOVloh3D qPDD3niV8eKUfvREmYCIsAK09Aojjq9QfJxwyODE0 YXJmhrWfu7Pla4dcXyAmpvHtW2luD9RmZLZhFLLaZ WRsOlXsdhLsb8Psf5TyhLWpmWl0z1wlKUBiBSWcvO amc4vdYEV6TJDxT9L9gOWlh7acFCnvXCCwsZR8yug sALstKLTravI1lkxuOJzxCVWpsEM5sdzrILsfMMPs JoN0angzLYpkQEJvJRR0QFqdv503MQE6NCuyTwpzY WdlXHBnbmNvbnRccGduZGVjXHBsYWluXHBsYWluXG RiYUEyXkXuwIpifOpoaR1zKpQpNiHaINkuKN7sHSB yJ2nojJVxRSRdKBEeN4pjIvQyjN9qbJvhSEgobgAk QUe2AxJ0LSm4NoB8TZXqRcfqESJ4 CLINICAL HISTORY (test code = 3356) d7kxmUZfAMBdqVFsPuCnIWZoYSWjs2v cZGVmbGFuZ wAtTlUfWuRmZijooRPfBHSoVkOah1ytb543iGMky3 pkNLLrLvN7aTZsVOUurDKzE597WACvCCvma7ezu9Q dLXKrzOZel3F3HXQGzdsqyTi1wVxvD27jn2O3Vuvf A9bgGKFsFPitZMZlJIynuXZyPQL9EQSjAHH2PSlan wFnrfN2ISgnyDZfTdP8ADi5l4wltYtdMCFmANN3d3 pnWNmpcqItPC1kkn5bnNu6j3zradCuZLAnBHGpkLG ZGFCpF2FlwHshHz7eeIt4oFgnWwgxYYW2Gbd0HG0w pi77lyr3gBcpHXCidqgeOoJ6QYhcIBIunhxaHOv5L FxtYXJnbDcyMFxtYXJncjcyMFxtYXJndDcyMFxtYX VfTdevVNifVHQcQBM0NGqei886JMI3KRkzv7pho3h dkWLsVlc3PHFoJhIpFrpyRZecm6Bgw7mjFACmdk3d EGH1sWChdCjas5J8iPJjFSPuiHThlmHvQTJjOxJ5X GnwDD2bui51ULOvRIJ8tv3unLTaxUkkzsPzfRQoLG phY0QoDYQov973EERqY5ScWEThe4W3dfQhCoFnZNV iuCD7tlH1ROElTWy4pWAxffA1toHczKTtT4bhyH26 ZbHinTTdO1GypF53RoUotVTdZ1OpgV51DeJngZFfJ 6SroH15LbYlxGHpOHRfeQZsIh9qvWUgqJXct6RzaF PuXFlrG73ey409LAGolbErP6ccyIYlxrdrsWRiozm nMUwrvsExHPIvGAVyKWnxISXhCBOdHpEcjMbddE5z FfJqFzCvRCMQld8gVBI0naS2RORolP7uv4Tuy2Q2A RPzISW9wSQsnzDcwdIed5PwcHufGMLgx4NmtJalKS GgPHFxGISxOQGjd0X4o5PkZTmrM98sv2fnPqQxrGM hobknQMUqKICygHAwBO9sRJTxm95nn09jc6RuM5ye XHBhcn0= SPECIMEN SOURCE (test code = 3377) j5lcgMUfGAJsoOAeRvAdPLMqXUKnv0gz ZGVmbGFuZ sLlHxNpPvKhYsizvKQkPKTvEqOlk1ehi511yYHmu6 qjWMYrPlV7pETcCBJdsIPpW378BDIcCUouu1mlu0J fXMQohWLxz5K7OZXQqlnifBb7hYaiJ80ay1F3Xvwb K9evUMDwZMuyPDDoVBxgaPBwXAP5GSVaBMQ5ETsvv zVqqeD0YLafjZFkQyU7NXt2b3xkvExwTUPsJPD5u2 uaBSdtrkSmVF7pma2qkPo2x9phbcExAMKxYBLfnIV JVWRlL5EtyKywCu0ipVo6jDlfBnzoXUT0Hys6DU0h ig14obq1jWakUQLbbjanRsB1JVenMDLvdtveFAj9M FxtYXJnbDcyMFxtYXJncjcyMFxtYXJndDcyMFxtYX SnSspdIWfeYJFzGFY0MAauz620CRC9MHrff5nfa3z jlSGxQju4ILEmNbPzDrogYGtus4Vqt8tlKEVswo4p WHQ0lFQzcPlnw9G5gQUbGEQdrGYvqeFeMWUnJgB6M FjuUV5jvc72EEGjGPF8cv2raVDxeZjomgPgmIAnKE yvX3VzVKCmk613LRHbN3NxBWSae0H1ruWqKfPvHZA swVP0jvL9JGUbBQq8kTJjeyY2peCjuBUxO0mwnO24 MwQxrFTbX6MjbL65CaTsvCPuC5GuuK83TfCmfFVuL 1OzkI82PkSsgDMmEONisOTuMm2zpFQluKHoh4SsmO IlOUsvI12pe705UXMyosNdA2wgyBWjzpswnPHmdex nDLuqlzHnNWEoXQItOMuiBJJfFQSiCvWlzChxjK3o NiJbAzHiJTEAvDTtnA9ukxHLOZjkVIfhAnYmICXuU cR0d5EkwwAzXy8xPjUqBZx8DWWvyP1aUn7nhHCydQ 6oKMBlYR98bXFftEylTKJbFGjjLQ89xgOtMvGfeZn pjB2tPjUlTnQtMCV4DD9uhImkm6wdlJTgoodsBAos tzZyRTA1cVInbVCwHRalitBmZLXsndmnjL5pGH90C AomVW36TFasPW3eOFBhEaBBsNMnh1IxQ0wgAG9crN QgCZ12tGUsjQxwh8PheTi1iWTgUTcfIZOhn2YjkPU oRLEmSsLprSWxJMAzzbDDcZDgoN5sqrKUMCcqZYpl VoHnVOVkYgZ8r13dW7yuWdXAOSHokFIwTCZkxhEmk 5RaQXlbhbTkwaWukMCnpPcvqHFuVoQbM44avjJoCX 0uQGVdte5udK5aSKWgg9A7WHGaY6luDRgjyKabHuT 4cnPiWnJzbNUgSuHrjGQgSqNsA30lTNMoBXNvnICl yK6mxtIolhOorlOxapPryWPrzGNzoMG7DVUxqV8gY 1Vbn7V9zSWkZyZmHZgrWCSgaBRdUBEdHDVjzUJlGF MgaXMgbGFiZWxlZCAiZGlzdGFsIFxwbGFpblxmMVx lviBcHTGfm7SuRBr6quNqIICyZ2YnraHlUAhdEARv vx8vkBsxOMQdUSUlsJx1wKCyLSAkftEpvAOocJOij 6LrgDOwTDstvOOzGOWpl9R7ABNuR9yfSIkbuSbrXd K7qxQdEmUjlDUfLyZluKXkUkKhR04cXBOePEXccVV jaT5mucKelcWbplQfarRfbMKgwLElvZB8AZBwnH1s L6Gws7J8eGSlIvYrHMKncETmPCQtscKGiQQewT1uj oBFLMdrMQssGuOkWJPvLnBvp0ctmPIbBKUcn3ScWC i1plAxWYZqH7FoekSmKWxvYADdgv5ptKywQYFqUUO geQu0qZKiDHIryoCgoJQgoUCgl6XqsKDdGKyiaQUu HKAma9V5EWZcF3itVTdvdUboZsV6ykNbYaiqqLDiQ wSvnNNtBfEwM85eTFQiODAgiCMztL1wnlFuydHkqy YnepOwdJExhWZgjZN8ZFUotK4lK0Oxs4S7iELqONS hGEJanHInEDKjhvDDsNRcpK6mjsINEQayBPeaRzJd SHEzVrEirB4aRJOjc8OcfQMcSYGbI3GevfHeHNmjN XGwjb6scAepEGVjUFYjaFg9wWNnZHWiveMkdUMwtT Ozt2IacRTtSHQisnjreExga8OzGNNdK2IbG5N1eB7 wGJPbOVElmPKnSezsoIFlOlAgT04jFOLpCOMliYHa dX9gdwFtgqQdrsAlsqLfqUUqjFBfeKQ2LFNjrP1dL 9Htq7N1sBKgWQRwKCRcvPHxTCDpypESbDThvH9mzk OGUHpcETfoWgEuSVKqWyDtP5R4cUGyQQTkR6FttwZ eICgzMUSfye1ogJhdOIcxTI9nHYKpngZtdAJtsLJq KgO8GS9uuKjgioX7wCXglWEygHYen5LxwA3dENWbZ LI7GVNnCMN9UIJxFLGbeP4fZCytIROhTVRihVKkNG foLGDsmThbHTn6SZK5Rh0rkEBmZHOkhtVcMBMuCYW 5AFOQMR4cUNSDI3ZlIAOrXQprJXKjGIIrHwZgjPCe fQ== MICROSCOPIC DESCRIPTION (test code = m9qyxVTuNUDxqSDeLzIdCDZiQIK cv3mlRSBrqIRbS 3371) tMtTkBtWhNhEuflqXNuEEZpTrYyf3tbk192pUArf4 ddPHNbDnW2aDBvVXBdjAIqU523OELzDSumz9kez9F jGLTsnKCvv8C5KOVTatysfGk1yJgbC18pb9H2Lvtb O9gqRCFbCSchBRFyWMwngADaWHM4FCLbBSS2SAwie tPwftQ3SLvvrMQbKtM4RWg8w6ydvLlfPAAwZPW5p0 luOOplkrMmNF6jrt7pfQo6t2gpskFbDZVbZUTidMA TLVGtX7LjsPvbTi4ygPz7fHywAzzcPHO7Psk7MZ9g rc91qap2oDrsSZEqvljqAuN9WKnpQBLnkjpqKRp8A FxtYXJnbDcyMFxtYXJncjcyMFxtYXJndDcyMFxtYX [file] iBccGFyfQ== SPECIAL STUDIES (test code = 3376) b6trsJLzBSFeoUNfKgVvSZTbZZOeh2rj ZGVmbGFuZ [file] XJ9 [id number] 08:22:00Surgical Pathology Report Case: [id number] Authorizing Provider: Michael Groves MD Collected: 03/30/2020 10:57 AM [facility] Received: 03/30/2020 02:13 PM SERVICES Pathologist: [...] LYMPHOID AGGREGATENZK/pl Signing Pathologist Direct Phone Line: [phone] signed by Augustina Nunez MD on 04/01/2020 at 8:22 [id number]; [id number]: colonoscopy and upper endoscopy, biopsyPre and postop [...] negative controls when available are evaluatedPOCT , [id number] 10:12:00 Test Item Value Reference Range Interpretation Comments Test Urine, POC (test Negative code = 6638765) Control line present?, POC (test Yes code = 3161119) Background clear?, POC (test code Yes = 1492955) UPT Cassette Lot #, POC (test code 5186512 = [id number]) UPT Cassette Expiration Date, POC 06-06-2021 (test code = 9103586) Lab Interpretation (test code = Normal 79304-9) [facility]
[2020-12-03 01:48] LABS: Absolute Lymphocytes (CBC) 0.7 K/uL (0.7-4.9); Basophils % 0.3 % (0-1.3); Hematocrit 44.1 % (36.0-45.0); Lymphocytes % 6.5 % (15.3-44.8); MPV 7.3 fL (7.6-11.3); RBC Red Blood Cell Count 5.16 M/uL (3.86-4.86)
[2020-12-03] MEDS ORDERED: MORPHINE 4 MG/ML SYR ONE (01:53)
[2020-12-03] MEDS ORDERED: ONDANSETRON 4 MG/2 ML VIAL ONE ×2 (01:53→04:57)
[2020-12-03] MEDS ORDERED: NA CHLORIDE 0.9% 2,000 ML ONE (01:54)
[2020-12-03 02:18] LABS: ALT/SGPT 25 U/L (12-78); AST/SGOT 18 U/L (15-37); Albumin 3.6 g/dL (3.4-5.0); Alkaline Phosphatase 87 U/L (45-117); BUN Blood Urea Nitrogen 16 mg/dL (7-18); Bicarbonate 26 mmol/L (21-32); Bilirubin Direct < 0.1 mg/dL (0-0.2); Bilirubin Total 0.3 mg/dL (0.2-1.0); Glucose Level 137 mg/dL (74-106); Lipase 151 U/L (73-393); Protein, Total 7.2 g/dL (6.4-8.2); Sodium Level 139 mmol/L (136-145)
[2020-12-03 02:55] LABS: Blood Morphology Comment NOT SEEN (NOT SEEN); Platelet Estimate ADEQ
--- NOTE | 2020-12-03 04:21 | ER ---
Nurse's Notes [facility] Name: Reyna Garcia Age: 50 yrs Sex: Female : 1970 Arrival Date: 12/03/2020 Time: 00:28 Bed 7 Private MD: Curt Patiño Diagnosis: Abdominal pain. Gastroenteritis Presentation: 12/03 01:04 Chief complaint: Patient states: C/O abdominal pain, nausea and diarrhea that started a wh few hours ago. Coronavirus screen: Client denies travel out of the [place] in the last 14 days. diarrhea, nausea. Ebola Screen: Patient negative for fever greater than or equal to 101.5 degrees Fahrenheit, and additional compatible Ebola Virus Disease symptoms Patient denies exposure to infectious person. Initial Sepsis Screen: Does the patient meet any 2 criteria? HR > 90 bpm. Does the patient have a suspected source of infection? Yes: Acute abdominal pain. Risk Assessment: Do you want to hurt yourself or someone else? Patient reports no desire to harm self or others. Onset of symptoms was December 03, 2020. 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 - Social history:: Smoking status: Patient denies any tobacco usage or history of. Screenin:08 Abuse screen: Denies threats or abuse. Denies injuries from another. Nutritional screening: No deficits noted. Tuberculosis screening: No symptoms or risk factors identified. Fall Risk None identified. Assessment: 01:07 General: Appears in no apparent distress. Behavior is calm, cooperative, appropriate for age. Pain: Complains of pain in right lower quadrant and left lower quadrant Pain does not radiate. Pain currently is 7 out of 10 on a pain scale. Quality of pain is described as crampy, Pain began 4 hours ago. Neuro: Level of Consciousness is awake, alert, obeys commands, Oriented to person, place, time, situation, Appropriate for age. Cardiovascular: Capillary refill < 3 seconds. Respiratory: Airway is patent Respiratory effort is even, unlabored, Respiratory pattern is regular, symmetrical. GI: Abdomen is flat, non-distended, Reports lower abdominal pain, diarrhea, nausea. : No signs and/or symptoms were reported regarding the genitourinary system. EENT: No signs and/or symptoms were reported regarding the EENT system. Derm: Skin is intact, is healthy with good turgor, Skin is pink, warm \T\ dry. normal. Musculoskeletal: Circulation, motion, and sensation intact. 03:00 Reassessment: Patient appears in no apparent distress at this time. Patient and/or jb4 family updated on plan of care and expected duration. Pain level reassessed. Patient is alert, oriented x 3, equal unlabored respirations, skin warm/dry/pink. 04:00 Reassessment: Patient appears in no apparent distress at this time. Patient and/or jb4 family updated on plan of care and expected duration. Pain level reassessed. Patient is alert, oriented x 3, equal unlabored respirations, skin warm/dry/pink. 04:22 Reassessment: Pt ambulated to restroom and back to bed with a steady gait. [facility] 05:28 Reassessment: Patient appears in no apparent distress at this time. Patient and/or family updated on plan of care and expected duration. Pain level reassessed. Patient is alert, oriented x 3, equal unlabored respirations, skin warm/dry/pink. Vital Signs: 01:04 BP 107 / 79; Pulse 95; Resp 18; Temp 97.2; Pulse Ox 100% ; Weight 88.45 kg; Height 5 wh ft. 3 in. (160.02 cm); Pain 7/10; 03:30 BP 119 / 68; Pulse 83; Resp 16; Pulse Ox 99% on R/A; jb4 04:18 BP 117 / 57; Pulse 92; Resp 16; Pulse Ox 100% on R/A; jb4 05:28 BP 117 / 57; Pulse 84; Resp 18; Pulse Ox 99% on R/A; 01:04 Body Mass Index 34.54 (88.45 kg, 160.02 cm) ED Course: 00:28 Patient arrived in ED. es 00:28 Curt Patiño MD is Private Physician. es 00:58 Beth Guadarrama, MALENA is Primary Nurse. 01:06 Triage completed. wh 01:08 Patient has correct armband on for positive identification. Bed in low position. Call light in reach. Side rails up X 1. Pulse ox on. NIBP on. 01:08 Arm band placed on right wrist. wh 01:13 Wesley Salguero MD is Attending Physician. pkl 01:30 Inserted saline lock: 22 gauge in right forearm, using aseptic technique. Blood mg2 collected. 01:56 No provider procedures requiring assistance completed. mg2 03:31 CT Abd/Pelvis - IV Contrast Only In Process Unspecified. EDMS 04:20 Curt Patiño MD is Referral Physician. pkl 05:42 IV discontinued, intact, bleeding controlled, No redness/swelling at site. Administered Medications: 01:39 Drug: NS 0.9% 1000 ml Route: IV; Rate: 1000 ml; Site: right forearm; 04:25 Follow up: Response: No adverse reaction; IV Status: Completed infusion 01:41 Drug: NS 0.9% 1000 ml Route: IV; Rate: 125 ml/hr; Site: right forearm; 04:25 Follow up: Response: No adverse reaction 05:30 Follow up: IV Status: Completed infusion 01:43 Drug: morphine 4 mg {Note: RASS 0.} Route: IVP; Site: right forearm; 04:24 Follow up: Response: No adverse reaction; Pain is decreased; RASS: Alert and Calm (0) 01:45 Drug: Zofran (Ondansetron) 4 mg Route: IVP; Site: right forearm; 04:24 Follow up: Response: No adverse reaction; Nausea is decreased 04:21 Drug: Cipro (ciprofloxacin) 400 mg Volume: 200 ml; Route: IVPB; Infused Over: 60 mins; [id number] Site: right antecubital; 05:25 Follow up: Response: No adverse reaction; IV Status: Completed infusion 04:41 Drug: Zofran (Ondansetron) 4 mg Route: IVP; Site: right forearm; 05:25 Follow up: Response: No adverse reaction; Nausea unchanged 05:24 Drug: Phenergan (promethazine) 12.5 mg Route: IVP; Site: right forearm; 05:43 Follow up: Response: No adverse reaction; Nausea is decreased Outcome: 04:21 Discharge ordered by . pkl 05:29 Discharged to home ambulatory, with family. 05:29 Condition: stable 05:29 Discharge instructions given to patient, family, Instructed on discharge instructions, follow up and referral plans. medication usage, POC Demonstrated understanding of instructions, follow-up care, medications, POC Prescriptions given X 2. 05:43 Patient left the ED. Signatures: Dispatcher [employer] Wesley Hamlin MD MD pkl Salyer, Edna es Bryson, James RN RN [id number] Beth Guadarrama RN RN Miles Mcdonald RN RN mg2
--- NOTE | 2020-12-03 04:22 | EDPHYS ---
Physician Documentation [facility] Name: Reyna Garcia Age: 50 yrs Sex: Female : 1970 Arrival Date: 12/03/2020 Time: 00:28 Bed 7 Private MD: Curt Patiño ED Physician Wesley Salguero HPI: 12/03 03:39 This 50 yrs old Female presents to ER via Ambulatory with complaints of pkl Diarrhea, Dehydration, Abdominal Pain. 03:39 The patient presents with abdominal pain in the lower abdomen. Onset: The pkl symptoms/episode began/occurred just prior to arrival, 3 hour(s) ago. The symptoms do not radiate. Associated signs and symptoms: Pertinent positives: nausea, vomiting, and diarrhea. The patient has experienced similar episodes in the past, several times. 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 - Social history:: Smoking status: Patient denies any tobacco usage or history of. ROS: 03:39 Eyes: Negative for injury, pain, redness, and discharge, ENT: Negative for injury, pkl pain, and discharge, Neck: Negative for injury, pain, and swelling, Cardiovascular: Negative for chest pain, palpitations, and edema, Respiratory: Negative for shortness of breath, cough, wheezing, and pleuritic chest pain. 03:39 Abdomen/GI: Positive for abdominal pain, nausea, vomiting, and diarrhea, of the right lower quadrant and left lower quadrant. 03:39 Back: Negative for pain at rest. 03:39 : Negative for urinary symptoms. 03:39 MS/extremity: Negative for acute changes. 03:39 Skin: Negative for rash. 03:39 Neuro: Negative for altered mental status, loss of consciousness. Exam: 03:39 Head/Face: Normocephalic, atraumatic. Eyes: Pupils equal round and reactive to light, pkl extra-ocular motions intact. Lids and lashes normal. Conjunctiva and sclera are non-icteric and not injected. Cornea within normal limits. Periorbital areas with no swelling, redness, or edema. ENT: Nares patent. No nasal discharge, no septal abnormalities noted. Tympanic membranes are normal and external auditory canals are clear. Oropharynx with no redness, swelling, or masses, exudates, or evidence of obstruction, uvula midline. Mucous membranes moist. Neck: Trachea midline, no thyromegaly or masses palpated, and no cervical lymphadenopathy. Supple, full range of motion without nuchal rigidity, or vertebral point tenderness. No Meningismus. Chest/axilla: Normal chest wall appearance and motion. Nontender with no deformity. No lesions are appreciated. Cardiovascular: Regular rate and rhythm with a normal S1 and S2. No gallops, murmurs, or rubs. Normal PMI, no JVD. No pulse deficits. Respiratory: Lungs have equal breath sounds bilaterally, clear to auscultation and percussion. No rales, rhonchi or wheezes noted. No increased work of breathing, no retractions or nasal flaring. 03:39 Abdomen/GI: Bowel sounds: normal, Palpation: soft, mild abdominal tenderness, in the right lower quadrant and left lower quadrant. 03:39 Back: Exam negative for acute changes. 03:39 : Exam negative for acute changes. 03:39 Musculoskeletal/extremity: Exam is negative for acute changes. 03:39 Skin: Exam negative for rash. 03:39 Neuro: Orientation: is normal, Mentation: is normal, Cranial nerves: grossly normal, Motor: is normal. Vital Signs: 01:04 BP 107 / 79; Pulse 95; Resp 18; Temp 97.2; Pulse Ox 100% ; Weight 88.45 kg; Height 5 wh ft. 3 in. (160.02 cm); Pain 7/10; 03:30 BP 119 / 68; Pulse 83; Resp 16; Pulse Ox 99% on R/A; jb4 04:18 BP 117 / 57; Pulse 92; Resp 16; Pulse Ox 100% on R/A; jb4 05:28 BP 117 / 57; Pulse 84; Resp 18; Pulse Ox 99% on R/A; wh 01:04 Body Mass Index 34.54 (88.45 kg, 160.02 cm) MDM: 01:13 Patient medically screened. pkl 04:13 Data reviewed: vital signs, nurses notes, lab test result(s), radiologic studies, CT pkl scan. ED course: Patient feeling. better. Abdominal pain resolved. No vomiting or diarrhea noted. Advised to follow up with PCP or G. I. in 2 to 3 days. To return if necessary. Patient understood instruction. 12/03 01:09 Order name: Basic Metabolic Panel 12/03 01:09 Order name: CBC with Diff 12/03 01:09 Order name: Hepatic Function; Complete Time: : 12/03 01:09 Order name: Lipase; Complete Time: 12/03 01:10 Order name: Basic Metabolic Panel; Complete Time: :46 EDCO 12/03 01:10 Order name: CBC with Automated Diff; Complete Time: 03: EDCO 12/03 01:22 Order name: CT Abd/Pelvis - IV Contrast Only pkl 12/03 02:00 Order name: Manual Differential; Complete Time: 03:02 EDCO 12/03 01:09 Order name: IV Saline Lock; Complete Time: : 12/03 01:09 Order name: Labs collected and sent; Complete Time: Administered Medications: 01:39 Drug: NS 0.9% 1000 ml Route: IV; Rate: 1000 ml; Site: right forearm; 04:25 Follow up: Response: No adverse reaction; IV Status: Completed infusion 01:41 Drug: NS 0.9% 1000 ml Route: IV; Rate: 125 ml/hr; Site: right forearm; 04:25 Follow up: Response: No adverse reaction 05:30 Follow up: IV Status: Completed infusion 01:43 Drug: morphine 4 mg {Note: RASS 0.} Route: IVP; Site: right forearm; 04:24 Follow up: Response: No adverse reaction; Pain is decreased; RASS: Alert and Calm (0) 01:45 Drug: Zofran (Ondansetron) 4 mg Route: IVP; Site: right forearm; 04:24 Follow up: Response: No adverse reaction; Nausea is decreased 04:21 Drug: Cipro (ciprofloxacin) 400 mg Volume: 200 ml; Route: IVPB; Infused Over: 60 mins; jb4 Site: right antecubital; 05:25 Follow up: Response: No adverse reaction; IV Status: Completed infusion 04:41 Drug: Zofran (Ondansetron) 4 mg Route: IVP; Site: right forearm; 05:25 Follow up: Response: No adverse reaction; Nausea unchanged 05:24 Drug: Phenergan (promethazine) 12.5 mg Route: IVP; Site: right forearm; 05:43 Follow up: Response: No adverse reaction; Nausea is decreased Disposition: 12/03/20 04:21 Discharged to Home. Impression: Abdominal pain. Gastroenteritis. - Condition is Stable. - Prescriptions for Zofran 4 mg Oral Tablet - take 1 tablet by ORAL route every 12 hours As needed; 6 tablet. Cipro 500 mg Oral Tablet - take 1 tablet by ORAL route every 12 hours for 5 days; 10 tablet. - Medication Reconciliation Form, Thank You Letter, Antibiotic Education, Prescription Opioid Use form. - Follow up: Curt Patiño MD; When: 2 - 3 days; Reason: Re-evaluation by your physician. - Problem is new. - Symptoms have improved. Signatures: Dispatcher [employer] EDWesley Aguirre MD MD pkl Gregor Macdonald, RN RN jb4 Beth Guadarrama RN RN Corrections: (The following items were deleted from the chart) 05:43 04:21 12/03/2020 04:21 Discharged to Home. Impression: Abdominal pain. Gastroenteritis. Condition is Stable. Forms are Medication Reconciliation Form, Thank You Letter, Antibiotic Education, Prescription Opioid Use. Follow up: Curt Patiño; When: 2 - 3 days; Reason: Re-evaluation by your physician. Problem is new. Symptoms have improved. pkl
[2020-12-03] MEDS ORDERED: CIPROFLOXACIN 400mg IV 400 MG/200 ML BAG IV ONE (04:34)
[2020-12-03] MEDS ORDERED: PROMETHAZINE INJ 25 MG/ML AMP ONE (05:38)
[2020-12-03 05:56] VITALS: TEMP 97.2
[2020-12-03 06:00] VITALS: BP 117/57
[2020-12-03 06:02] VITALS: O2SAT 99
--- NOTE | 2020-12-03 14:56 | RAD REPORT ---
EXAM DESCRIPTION: CT abdomen and pelvis March 25, 2020. CLINICAL HISTORY: [facility] MAIN ABD PAIN TECHNIQUE: CT of the abdomen and pelvis was acquired with IV contrast material. Coronal and sagitt al reconstructions were obtained. Automated exposure control was utilized on this examination as a dose lowering technique. FINDINGS: Lung bases: Clear. Liver: Normal. Gallbladder and biliary: Normal gallbladder. Unremarkable biliary tree. Pancreas: Normal. Spleen: Normal. Adrenal glands: Normal adrenal glands. Kidneys: Normal kidneys Stomach and Small Bowel: The stomach and small bowel are normal. Urinary bladder: Normal. Uterus and Adnexa: IUD in place. Colon and Appendix: Surgical changes of distal colon resection and appendectomy. Retroperitoneum and lymph nodes: Normal. Vascular: Normal. Peritoneal cavity: No ascites or free air. Musculoskeletal and soft tissues: Soft tissues are unremarkable. No aggressive bone lesions. No com pression fracture. IMPRESSION: 1. No acute intra-abdominal abnormality. 2. Partial colectomy. Electronically signed by: Rupesh Chowdhury MD 12/03/2020 3:58 AM CDT Due to temporary technical issues with the PACS/Fluency reporting system, reports are being signed by the in house radiologists without review as a courtesy to insure prompt reporting. The interpreting radiologist is fully responsible for the content of the report.
== END 2020-12-03 05:43 | disposition home or self-care (01) ==
LOC: ER 00:25
DX: K52.9 Noninfective gastroenteritis and colitis, unspecified (principal)
CPT/HCPCS: 96365; 96361; 85025; 80048; 36415; 80076; 83690; 74177; 96375; 99284; Q9967; J2550; J7030; J2405 ×2; J0744

== ENCOUNTER 2021-01-05 06:11 | Emergency (ER) | payer BC ==
--- OUTSIDE RECORDS SUMMARY | 2021-01-05 06:15 | XMS REPORT | Continuity of Care Document ---
:1970 Author Organization [facility] t Address [address] [place] [address] Care Team Providers Name Role Phone Kaylyn Nam Primary Care Physician Radiology Attending Clinician Unavailable Doctor Unassigned, Name Attending Clinician Unavailable ALEX GROVES Attending Clinician Unavailable Alex Groves MD Attending Clinician Mary Zaragoza MD Attending Clinician [phone] VISIT, MPB Attending Clinician Unavailable ALEX GROVES Admitting Clinician Unavailable Payers Payer Name Policy Type Policy Effective Date Expiration Date Sour ce Number BLUE CROSS/BLUE [id number] 2018 [facility] 00:00:00 - Medical POS EPO Center [id number] [phone], [place] [address]XTD Problems Condition Condition Condition Status Onset Resolution Last Treating Co mments Source Name Details Category Date Date Treatment Clinician Date Depressive Problem Active 2019-09-27 M emoria disorder 23:16:42 l (disorder) Mane russo Depressive disorder (disorder) Active Problem 09/27/2019 [facility] Group Joint pain Problem Active 2019-09-27 M emoria (finding) 23:16:42 l Joint [place] pain (finding) Active Problem 09/27/2019 [facility] Group Allergies, Adverse Reactions, Alerts Allergy Allergy Status Severity Reaction(s) Onset Inactive Treating Comm ents Source Name Type Date Date Clinician No Known No Known Active Memori a Medicati Medicati l on on Basil Santos s s Social History Social Habit Start Date Stop Date Quantity Comments [facility] History [facility] Alcohol Binge Medical Annia ter Sex Assigned At [facility] Alcohol intake 2020-03-30 2020-03-[address] [facility] es - 00:00:00 00:00:00 non-drinker of Medical Ce nter alcohol (finding) Tobacco use and 2020-03-30 2020-03-30 Never used [facility] ke - exposure 00:00:00 00:00:00 Medical Center History SDOH 2020-03-27 2020-03-[address] [facility] - Alcohol Frequency 00:00:00 00:00:00 Medical Center Smoking Status Start Date Stop Date Source Never smoker [facility] Medications Ordered Filled Start Stop Current Ordering Indication Dosage Frequency Signature Comments Components Source Medication Medication Date Date Medication? Clinician (SIG) Name Name ondansetron 0 Yes 4mg Take 4 mg C HI [...] Source Systolic blood 2020-03-30 12:00:00 114 mm[Hg] [facility] St [facility] pressure [facility] Center Diastolic blood 2020-03-30 12:00:00 78 mm[Hg] [facility] S t [facility] pressure [facility] Heart rate 2020-03-30 12:00:00 70 /min [facility] St L es - [facility] Respiratory rate 2020-03-30 12:00:00 28 /min [facility] Oxygen saturation in 2020-03-30 12:00:00 100 /min [facility] - Arterial blood by Medical Ce nter Pulse oximetry Body temperature 2020-03-30 11:33:00 36.56 Svitlana [facility] Body height 2020-03-30 10:00:00 162.6 cm [facility] Body weight 2020-03-30 10:00:00 88.451 kg [facility] BMI 2020-03-30 10:00:00 33.47 kg/m2 [facility] Systolic (mm Hg) 2019-09-10 20:59:00 Asif rial Basil Diastolic (mm Hg) 2019-09-10 20:59:00 [facility] orial [place] Heart Rate 2019-09-10 20:59:00 [facility] Height 2019-09-10 20:59:00 160.02 cm [facility] Weight 2019-09-10 20:59:00 [facility] BMI Calculated 2019-09-10 20:59:00 Jairo Hardwick Procedures Procedure Date / Time Performed Performing Clinician [facility] e REPORT OF PROCEDURE - 2020-03-30 11:41:09 Michael Groves [facility] REPORT OF PROCEDURE - 2020-03-30 11:39:[address] [facility] TISSUE EXAM 2020-03-30 10:57:00 Sheikh Michaelpamella Johnson [facility] COLONOSCOPY,BIOPSY 2020-03-30 10:33:00 Sheikh [facility] UPPER ENDOSCOPY,BIOPSY 2020-03-30 10:33:00 Sheikh Michaelpamella Johnson [facility] POCT , URINE 2020-03-30 10:12:00 Chelo Zaragoza [facility] Appendectomy [facility] Partial colectomy [facility] Plan of Care Planned Activity Planned Date Details Comments Source Future Scheduled 2020-04-[address] [facility] - Test 00:00:00 (#1) [code = [facility] INFLUENZA VACCINE (#1)] Future Scheduled [address] [facility] Test 00:00:00 (procedure) [code = [facility] 97606502] Future Scheduled [address] [facility] Test 00:00:00 malignant neoplasm Medical C enter of cervix (procedure) [code = 076481934] Encounters Start End Encounter Admission Attending Care Care Encounter Source Date/Time Date/Time Type Type Clinicians Facility Department ID 2020-09-24 2020-09-24 [facility] Radiology [facility] [id number] 14:00:34 23:59:00 Encounter SPECIALTY [id number] [facility] [id number] CENTER AT [id number] RADHA Mayes [facility] 2020-09-24 2020-09-24 [facility] Radiology [facility] [id number] 13:59:53 13:59:53 Encounter SPECIALTY [id number] [facility] [id number] CENTER AT [id number] RADHA Mayes [facility] 2020-08-19 2020-08-19 [facility] Radiology [facility] [id number] 14:40:00 23:59:00 Encounter [place] [id number] [place] [id number] [place] [id number] 2020-08-19 2020-08-19 Orders Doctor ZACH [id number] 00:00:00 00:00:00 Only Unassigned, JEANNE [id number] [place] [facility] [id number] 2019-09-25 2019-09-25 Outpatient VISIT, [facility] [id number] 16:00:00 16:00:00 TECHNICAL TRANSLATOR 01 [facility] 2019-09-10 2019-09-10 Outpatient [facility] [id number] 14:30:00 23:59:59 00 Results Test Description Test Time Test Comments Results Result Comments Source Tissue Exam 2020-04-01 08:22:00 Test Item Value Reference Range Interpretation Comme nts Case Report (test code = 104) Surgical Pathology Report Case: [id number] Authorizing Provider: Michael Groves MD Collected: 03/30/2020 10:57 AM Ordering Location: [facility] Received: 03/30/2020 02:13 PM SERVICES Pathologist: Augustina Nunez MD Specimens: A) - Duodenum, random biopsies B) - Stomach, random biopsies C) - Distal Esophagus, random biopsies D) - Proximal Esophagus, random biopsies E) - Colon Biopsy, Random F) - Rectum, random biopsies DIAGNOSIS (test code = 3220) [id number] pcd [file] TBFkULRWiDINFQNFDWYxtZERToxFLdJBNzMZ2jP7r WBYaTTVglTvHFR5JEUgEaQ7MQGRRLEEOQLAjffQYj HJUkXTilKHKwYn1nMMFKUKvKD1DHZDBWUK3XE30sP hkDRKDXUGT0VTBtbdBrTFHtITZZDmvQQEHBL33LMS HVLAZESwAhkBIiFKPvuoCCMuUCZ18VJTJSKLUjXLJ CD5rJTBCQLPDKZT1FW8dIHezblYAcGCYuRI1tCsMB XVKTTOMWP6BGLDqWOFrDFOjyZNOssFBbYFNxFVNOC U5EIYBBAI9IW06wTufXLMWIEEB8WUCnipToQCXsNE 9DMCJWO3NIViUDC0bSERRYG7CZEKkuIXKedQTpJGL qPRRTM8JFZMexBrKPMC1PRMJWG1ELDEUAOtxzRAQn GBQdAWANNN7LD32wVoZJVUFIRO7YB31BFEABHJMKD CcKDPPVZ0dHJENBN7XEI2VVOFtkADPqmZVoCC9lCm 1cbWbqTAD7k7hxzXTaKPRriPCiKOSpOYwmwlGlEIQ xSsfhykpqMZPgMVF9ttIvEWNaOLsbYJIlRFhmNm6h nBXlzImlRnGfWBZwg0ncxoTDirvnuMz1k7akOFHyI cU5cQPqNZarX0ncgjRnrYEcBALtMKu7kG83NXVhmR 8quYYvOXmbnyNnZyH8SVkyVEOjZlK5FTSlxLWrDJA oR6ojIMZnKGkgIYQkGJpsiTBlNOG8fLvyc1Y6qCXl vEXdjLedWpCkDpXtYpHGz5VzISp9nFynE0EsCPErS zK7eNElOKStPAndMRNdZHEsauI8qY52QBeniuK4hD Uyi9Lbr61fw643kB4rvDUoRRB4BHUwQFGnzEQnSHN sLHL4GZZxpBFoR5gyAWRpII1bagqyIDbzEKhxEZBi oDL4VYYpyNZoL4GhEKWoGXqhDUBtbop7TnAfHi6fs BSibQpoJBwmv9mzm0bdeIOrGra1SWQdUtIwAycuKW grm9Elu1zhTOHqgt0zHLH4iLEqxBlqt8L1nARjUSD qlIIxSMMiJU3saUJeBIAkmF9zzdszSMGmZvGnoglu SMIvfPifoqBsZm3fxInxIWJ9GOmgB5ninD0pPrQ7G KusO1bmbC4jSOi6DRbmGYVbwMF5zrU6DIEerSMzG2 DruC6tZTYtDI0dawj8f8jrQJS7ILmbVPIjKsC5jhQ 1EDTboATfORIuzPwqZPrpv329IUK0IkAvCHGtu5Gd W2FvxPulP57luUafX27kXOFckLcohM0srCidoI3cM iXzQkFtOOyrsJwmUT0vBDNzT3kbbYDmPGXuRJIvI5 yoHdOmrN5saFjfWSgoamIcHNBmRdh0UUGbaMRfMDL xPlj4MBQgJMSwU06pobngKCN2dT2ho5rgb3HmKYly SSI2GEOqo10vFFxsnaK1GCxxAa4mXzDjVFA8VSmlM XJ9fQ== CPT Code(s) (test code = 3357) a0wsdYFmIJWlzQYlRvUdLKHzMBPug4ufYVNe bGFuZ hBnTpLzFyHxFgpjhYZeSGCyApJtn2vgv357mBHif7 fwTCKbDeR0kTUuGFKlsGGsX699a9lwl5gocyOyjEJ 1RJQrPZU5RBuwblRmgzM4UYjhkXNpQpJ5SYvdxxBq MGdlyrTsggHuAlh9WNPmS389SAN7eSsbj0inGTT4P EHbRKZpSnRaCx8jsPDyQ055WYGsJGVGHQKifPv1AH PvqjFkdmVspOVQo837S390y6mrKQUecqFteNnTffd np5rsJ694NCDxzBNvdgGgTfMhPCAwzUQmrNZ5BTKd QM3atiltPxKsYE2mplhvIwCtAL0gnpr3CzZbDX2um bavAiDlRPhsQEDzlwdbWPRmk1TczyvmFU7eQ1Oap0 H3iJ9wkYSdTWAiqDXxJcDhDITvvv1byIGsEQnjo2T yGZF4ynK6lHJxgBTlEIUxIB84Blfyt2BtOremBVK5 KWCnxdZmv7Kwa1gyJcVejrXqN0zjN3JaXCGfJMSsW ZWkSrOkneSdk3Efa5OamDVrgOj6u4fdKVCsNBVhjZ uoo1hgFZE2RKDtQ8I9kVLtu4cqTTpuKJZqoPT0gxf nGAyxRDBbneR7zwqdRDxqTDAgwZU7volsUVxyJHQi NqP1rqiaPQweHDWqVVW2WMnax587HAU2ACtyXbrqP WdlXHBnbmNvbnRccGduZGVjXHBsYWluXHBsYWluXG YnEOEyNtWwsHchpBjiaD2rKeJkAxLdGVndTB4tMGN gK2vzqQXgADFfGIIeR0yjZoIaqZ0dxOwvXPknfhVe UYw7YzB5ZTb7DeC7NMJaGdekEWC0 CLINICAL HISTORY (test code = 3356) m8aanKCaTSOjuPBsJfCkKVDxFXPek7y cZGVmbGFuZ vHtKyXrHrAjBixdhBKuSTUvZpGtj7qul893wFSdr3 suKRWsPxS0aXQdZECycYYfS148QSNqHWqdw9xoc7C zRQUulDVwk1G5RMXNirjhvJc5jWbiO99ik4H7Vetd D0lqHZCyIEuwMNPhIHqzqQGuVFY2GUVaEQD1RRohn tKzyiC7LAsvxEPeRyV7GWj8j8eavOteVPEjBJL0a5 gbWWrjuqQoWN6gcr1jwVt9a7mvfxFeRJRsFYLuaCV HWGRuJ2BplImoEe9lgHw4tKisZigjMDZ9Qtp2NA5p qp04jbl2wRknQDNnjrbeVkM5KLfcVNEjwrglKGy5L FxtYXJnbDcyMFxtYXJncjcyMFxtYXJndDcyMFxtYX PvOzeoEMpxMPJmUBP4OVepu499KYH3YZbfa3vol1k kxYSuTmd3CXMeAuFlLjzaUZviw9Ejo2ymJTLgkh4v EAJ6wKGxmWivd4K4hSLwETSlbBRwonJoQYLoSzZ0Z BbdCG1qum04LSKiKJX2am7ukLNfzUerigUoiUOsCN ijF7FyTPWlm239DDFvP9TbWOHxj2B8jjLiHuYmHLB pbZQ3liR6YSAiHFb9mLXitbX9aeIvzRJbF1pdcN70 QpFzmACzG7JypS45BgXdkSPxX0YmpH83RxPhnQSyP 3CvkT29QrMlsGKxEPMqqBQfVu1vkELfoAZee4CkdM TfCEvjP51ox868HEQrccQaL3uurKXvejdqkFRwuco sGTbkzeRlJKHmHVOvRXcvQTZyJCOpDlOfrLreoP2z WiBtQuKgRBNJtc2lTQW5ncI1QTZheF2pv2Bwj8I8L LAjUET9uQJddrHqjtXuw1GnsBzmYIZoc5IxjFbdKF OvKTHqRFWdBCAge6J7f5SmQElwA64ud3cmPdCrvXL xpkubZKVzXVSizRHbBH4vNNSqk99il00rj0KuY7pd XHBhcn0= SPECIMEN SOURCE (test code = 3377) k8shyZVuNTHczYFiSrIpTDSzUFBwt4kv ZGVmbGFuZ tGmCuLyLmOzAzznwEXzWDGbEoXfp2jhz185qBIsh1 loIXDyBmB6gPJhCUCpnLPnK530EGOoOOprw6whf1E tEPWarXOus1S4BEWDjceebFh2mVrcQ24oz9S0Uuxo H6uyAVTbDWxwDHCmRTncoMYxVQZ2MIYtBIH2TLaxq wAqtzL6UUsdvNBgWuC2XZi4b8nmqPkzSXHlJCW7o4 hhNYwrfvHcDO9mds8czWj4v6vxbbAeUOZaZOQudGE NVHUeU2XarTrqCj3wrWi4eEhgUngzAMN3Wsa7PF2g de32gmt5aXggXALdpqpaGzD9EThbNJLsvbzwIEo9U FxtYXJnbDcyMFxtYXJncjcyMFxtYXJndDcyMFxtYX GzFxliHMdlYFFoVEW0JMpsn700HJM6KCric7khl9e ooYCeYpm1PWLnMmVnHyrfASoxe7Aco4wdDVZehn7h UVG5aNUeqHsuf8M6oKOrZSWohOEgvsJeFFOfXdN0J YuqAB0ees24LJNoJJC2rf3fyOUogEcouqMlqVIzJO dtC0LfYJUfj111ZGLwD2OpEICzx2B6baUnCzApPMT nhDW3ziT0SSUeACh7nUGuyzI9hvXwyIMmK6cyhN16 EyWtvKHiF7WxdA57SaAwoZKiP6EflS60NyVbbFTlC 6OfhQ27XrBebBUlTNVzxWJcWx8hxIRizOEdz5TvdV XbUWovQ12ml621FZTbrfMiC5utfJJhxkszhGXmhgw sDGksxwNqQGAaBNPuZTzlSUAgYREuDtDhnMwegD4b YrIlRfAnWRVKlBTvcQ2pacQMXVtpLQxjByGgSYCrS gL4x0KrhfFhHk2hBeOkUYx7ZZIzhF4jOz4bnTNnoH 7dPVOyYO61aFBkcHizMMTvZTraEC24peVaKlRyyHa cyW2yGlZwWpPlTNE5VY3ruTfpe8rrcZEttwzkWEmj coHwIUV1gBHhdCScBDjpltQoHZBfojjozX5vBN12W XxyIT84IZehFQ9fFSQlQoEZgDLkn2MwH9kpHX6ufA XvAV40jZDhoTspg0HfyDz7pVVsXRckSKKbu3AryNT iCLLcRoLjfHRfAEAdgpPHrBEpoY6uouFSTSglHBgk KnDqTSGbGwW9o91mQ4pxEnADAPWhbJRjCIKacmToh 8JlHSyngwEzxiYfsFLivGgnjKYvIzDyR36emgNkYY 2zFKNmhz3jkD5lNKNsl1C3MNNeF8dmRPhnwCmlXjO 3hsJkRqLjuOPlLpGrwIJgZoKwL59tVGPpMSKnoWBp jF8ussFoliGueeVlnoUjtKExtFIjuMZ3BXZvoB5aB 9Xef1M8iOMwOyWoALtlBLJhkONlUREiATThyAZuYV MgaXMgbGFiZWxlZCAiZGlzdGFsIFxwbGFpblxmMVx vimBaGCGur3GgURi8tkPiAMQmP9XxtwCtFJjhPMXf xk6arAgnDUFcKUUseVn8lNWwYDGunmGwrEIbwUHkf 6OtcGViAEdmeOOnNCIou6W7MGJuY4uuCNjkoBdfOg Z5wrObByCndJSzEeCeeKLrApMkH28jIQTkENQwnAM mdP0gzoMayrYqvqZmejQirWXurQHvxYO7IKPvcG2o C8Uaa1R2xRMnYdDwXDYyrHLfYHBeyqMYmJZegJ2oc qOKZNnoQRliUeFcRHZoUjAue4lroAPvPPBgb9GxRQ x9lrKeVVMdC9OcpfMsHPsjFTImjd2dfDqoNKTqNBW krPw9zSZcWKDvljVpkMBriTDyq7QqsNDuPBdadRIy EFRvh7Y1VXCmP1edAMtzmTnvOmN8vjMrBiugiBVuU cAaqWAfJoFtJ69nBDAwRKUnfDYctQ4rfkWyffOdyp PdjhBzrJXotZIgfMV2VLRosJ7dM0Wnk8K5bOEaIAO yDWEpuCPxIVKupqGCnIQitM2fiqMANMpgQHbiEnMm TWYySrHlnA3nBLDrg8NpdXKbBLApM2WdplGrDTocW RQysn2fhSluBOGbXIXdnLq9nCIuTRZbnhIdoBZixT Fqb4FmcGGoKCXbzhnkdMqoh7NuHGQuJ9VxH1N6eZ0 rCVZnRRYguHAlBrfmyXPmOwBcU00tQMRmTZDphDOq cH2ubjJdwpDyqsCdunGigKBgwJLocER4JMIgmP5dU 9Czy0G2yUDfZUFpEPUczCQeHPCwozTBcJWkbY3ofn RTZUcgMZtfHoHwIDXaLvCzZ1H2eEPlFMUuA8RbckC jIJswISMzhd3wgCxyGDxoVM9dYTByuuSlmUGzcTJu QuO6ZB0vhPusicQ5pLIjxGJtmWNio3DubU3tZTMpI UJ5GCXzQAB0UVGcJNRyzV9qQYxyCCXxSHDiuYHrUZ ppVJQhzSxeIUb2OMK1Zh4wjOLcBHGjiyCxIRIqBUC 9VNFVTY6ySETVG5TrUXBrDHycAPZzPPXbVuCamIFq fQ== MICROSCOPIC DESCRIPTION (test code = d9olmYHgEQAkmMJrDvDbNSJnNJM wd8jnEMEyzNNpR 3378) iFfUbHkZsRbLcwexOIaFTNtFxCyb7onp581vTXtn4 odRZFtHgB3wEAlKKOxxTWvB255AIPoXSpth1gos2B lGAVguVQuy0Q1BBELhcgdwLl1lUgdH99je1O7Knfr A8lqBTYpJKcsXLUgGSxydFMzTDA1LMDqODI5VKgyt yGudiT8JVmhfPSkZlG8QHb6g3bgnIqdTPBqOUO4y8 htIZhmwtEqLB2lgu3zvKm1d8rcnmIbITNvODTltEC TWANmP0ToiEqqZa0khTz8hNezPxtbFSO9Nvf5ZI4s vp31evz9rZbdHPMmwqquCzM4QFzwHTVstopdNUg1S FxtYXJnbDcyMFxtYXJncjcyMFxtYXJndDcyMFxtYX [file] iBccGFyfQ== SPECIAL STUDIES (test code = 3376) a6uctYZsNHYbwISoWbRjRJDcUXPjv8tk ZGVmbGFuZ [file] XJ9 [facility] [id number] 08:22:00Surgical Pathology Report Case: [id number] Authorizing Provider: Michael Groves MD Collected: 03/30/2020 10:57 AM [facility] Received: 03/30/2020 02:13 PM SERVICES Pathologist: [...] LYMPHOID AGGREGATENZK/pl Signing Pathologist Direct Phone Line: [phone] signed by Augustina Nunez MD on 04/01/2020 at 8:22 [id number]; [id number]: colonoscopy and upper endoscopy, biopsyPre and postop [...] negative controls when available are evaluatedPOCT , [id number] 10:12:00 Test Item Value Reference Range Interpretation Comments Test Urine, POC (test Negative code = 5979940) Control line present?, POC (test Yes code = 2750030) Background clear?, POC (test code Yes = 1784109) UPT Cassette Lot #, POC (test code 2603768 = [id number]) UPT Cassette Expiration Date, POC 06-06-2021 (test code = 5890653) Lab Interpretation (test code = Normal 88928-0) [facility]
[2021-01-05 07:52] LABS: Absolute Lymphocytes (CBC) 1.4 K/uL (0.7-4.9); Basophils % 0.5 % (0-1.3); Hematocrit 44.2 % (36.0-45.0); Lymphocytes % 19.3 % (15.3-44.8); MPV 7.6 fL (7.6-11.3); RBC Red Blood Cell Count 5.26 M/uL (3.86-4.86)
[2021-01-05 08:07] LABS: Albumin 4.2 g/dL (3.4-5.0); Bilirubin Direct 0.1 mg/dL (0-0.2); Bilirubin Total 0.5 mg/dL (0.2-1.0); Potassium 3.9 mmol/L (3.5-5.1); Protein, Total 8.1 g/dL (6.4-8.2)
[2021-01-05] MEDS ORDERED: MORPHINE 2 MG/ML SYR ONE (09:13)
[2021-01-05] MEDS ORDERED: ONDANSETRON 4 MG/2 ML VIAL ONE (09:13)
[2021-01-05] MEDS ORDERED: NA CHLORIDE 0.9% 1,000 ML ONE ×2 (09:14→11:50)
[2021-01-05] MEDS ORDERED: FAMOTIDINE 20 MG/2 ML VIAL IV ONE (09:14)
--- NOTE | 2021-01-05 09:48 | RAD REPORT ---
EXAM DESCRIPTION: CT - Abdomen Pelvis W Contrast - 01/05/2021 9:35 am CLINICAL HISTORY: Abdominal pain COMPARISON: November 2020 TECHNIQUE: Computed axial tomography of the abdomen pelvis was obtained. 100 cc Isovue-300 was admin istered intravenously. Oral contrast was not requested which limits evaluation of bowel. All CT scans are performed using dose optimization technique as appropriate and may include automated exposure control or mA/KV adjustment according to patient size. FINDINGS: The liver, spleen, pancreas, adrenal and kidneys appear unremarkable. There is no evidence of diverticulitis. Postsurgical changes involve the colon. An IUD is present mostly within the uterine body. It is unchanged in position from the prior exam IMPRESSION: An IUD is present mostly within the uterine body. It is unchanged in position from the p rior exam No acute abnormality is displayed.
[2021-01-05 09:55] LABS: Protime INR 1.09
[2021-01-05 10:06] LABS: NT PRO-BNP 180 pg/mL (<125); Troponin (Emerg Dept Use Only) < 0.02 ng/mL (0.0-0.045)
--- NOTE | 2021-01-05 10:10 | RAD REPORT ---
EXAM DESCRIPTION: [place] Single View01/05/2021 10:00 am CLINICAL HISTORY: Abdominal pain COMPARISON: 2019 FINDINGS: The lungs appear clear of acute infiltrate. The heart is normal size IMPRESSION: No acute abnormalities displayed
--- NOTE | 2021-01-05 11:48 | EDPHYS ---
Physician Documentation [facility] Name: Reyna Garcia Age: 50 yrs Sex: Female : 1970 Arrival Date: 01/05/2021 Time: 06:21 Bed 13 Private MD: ED Physician Portillo Scruggs HPI: 01/05 09:20 This 50 yrs old Female presents to ER via Ambulatory with complaints of pat Nausea, Diarrhea. 09:20 The patient presents to the emergency department with nausea, that is moderate, pat diarrhea, that is continuous, 10 times since the onset of symptoms. Onset: The symptoms/episode began/occurred 1 day(s) ago. Possible causes: unknown. The symptoms are aggravated by nothing. The symptoms are alleviated by nothing. Associated signs and symptoms: The patient has no apparent associated signs or symptoms. Severity of symptoms: At their worst the symptoms were moderate in the emergency department the symptoms are unchanged. The patient has not experienced similar symptoms in the past. 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 - Social history:: Smoking status: Patient denies any tobacco usage or history of. ROS: 09:21 Constitutional: Negative for fever, chills, and weight loss, Eyes: Negative for injury, pat pain, redness, and discharge, ENT: Negative for injury, pain, and discharge, Neck: Negative for injury, pain, and swelling, Cardiovascular: Negative for chest pain, palpitations, and edema, Respiratory: Negative for shortness of breath, cough, wheezing, and pleuritic chest pain, Back: Negative for injury and pain, : Negative for injury, bleeding, discharge, and swelling, MS/Extremity: Negative for injury and deformity, Skin: Negative for injury, rash, and discoloration, Neuro: Negative for headache, weakness, numbness, tingling, and seizure, Psych: Negative for depression, anxiety, suicide ideation, homicidal ideation, and hallucinations, Allergy/Immunology: Negative for hives, rash, and allergies, Endocrine: Negative for neck swelling, polydipsia, polyuria, polyphagia, and marked weight changes, Hematologic/Lymphatic: Negative for swollen nodes, abnormal bleeding, and unusual bruising. 09:21 Abdomen/GI: Positive for nausea and vomiting, diarrhea, of the umbilical area, right upper quadrant, left upper quadrant, right lower quadrant and left lower quadrant. Exam: 09:21 Constitutional: This is a well developed, well nourished patient who is awake, alert, pat and in no acute distress. Head/Face: Normocephalic, atraumatic. Eyes: Pupils equal round and reactive to light, extra-ocular motions intact. Lids and lashes normal. Conjunctiva and sclera are non-icteric and not injected. Cornea within normal limits. Periorbital areas with no swelling, redness, or edema. ENT: Nares patent. No nasal discharge, no septal abnormalities noted. Tympanic membranes are normal and external auditory canals are clear. Oropharynx with no redness, swelling, or masses, exudates, or evidence of obstruction, uvula midline. Mucous membranes moist. Neck: Trachea midline, no thyromegaly or masses palpated, and no cervical lymphadenopathy. Supple, full range of motion without nuchal rigidity, or vertebral point tenderness. No Meningismus. Chest/axilla: Normal chest wall appearance and motion. Nontender with no deformity. No lesions are appreciated. Cardiovascular: Regular rate and rhythm with a normal S1 and S2. No gallops, murmurs, or rubs. Normal PMI, no JVD. No pulse deficits. Respiratory: Lungs have equal breath sounds bilaterally, clear to auscultation and percussion. No rales, rhonchi or wheezes noted. No increased work of breathing, no retractions or nasal flaring. Back: No spinal tenderness. No costovertebral tenderness. Full range of motion. Female : Normal external genitalia. Skin: Warm, dry with normal turgor. Normal color with no rashes, no lesions, and no evidence of cellulitis. MS/ Extremity: Pulses equal, no cyanosis. Neurovascular intact. Full, normal range of motion. Neuro: Awake and alert, GCS 15, oriented to person, place, time, and situation. Cranial nerves II-XII grossly intact. Motor strength 5/5 in all extremities. Sensory grossly intact. Cerebellar exam normal. Normal gait. Psych: Awake, alert, with orientation to person, place and time. Behavior, mood, and affect are within normal limits. 09:21 ECG was reviewed by the Attending Physician. 09:21 Abdomen/GI: Inspection: abdomen appears normal, Bowel sounds: normal, Palpation: mild abdominal tenderness, in all quadrants, Liver: no appreciated palpable abnormalities, Hernia: not appreciated. Vital Signs: 06:43 BP 138 / 78; Pulse 73; Resp 18; Temp 98.8(O); Pulse Ox 98% on R/A; mw2 07:57 BP 121 / 85; Pulse 105; Resp 15; Pulse Ox 98% ; jl7 10:14 BP 126 / 87; Pulse 70; Resp 14; Pulse Ox 100% on R/A; vg1 11:22 BP 122 / 72; Pulse 68; Resp 16; Pulse Ox 100% on R/A; vg1 12:16 BP 115 / 74; Pulse 68; Resp 16; Pulse Ox 100% ; vg1 MDM: 08:11 Patient medically screened. [facility] 09:23 Differential diagnosis: Nonspecific abd pain, gastritis, cholecystitis, pancreatitis, pat diverticulitis, viral gastroenteritis, appendicitis, bowel obstruction, cholecystitis, Cholelithiasis, diverticulitis. Data reviewed: vital signs, nurses notes, lab test result(s), EKG, radiologic studies, CT scan, plain films. Data interpreted: monitoring coordinator: rate is 105 beats/min, rhythm is regular, Pulse oximetry: on room air is 98 %. Test interpretation: by ED physician or midlevel provider: ECG, plain radiologic studies. Counseling: I had a detailed discussion with the patient and/or guardian regarding: the historical points, exam findings, and any diagnostic results supporting the discharge/admit diagnosis, lab results, radiology results. Medical screen evaluation completed. [facility] emergency medical condition absent. 01/05 07:24 Order name: Basic Metabolic Panel; Complete Time: 08:21 01/05 07:24 Order name: CBC with Diff; Complete Time: 08:21 01/05 07:24 Order name: Hepatic Function; Complete Time: 08:21 01/05 07:24 Order name: Lipase; Complete Time: 08:21 tw4 01/05 08:21 Order name: Magnesium; Complete Time: 11:39 [facility] 01/05 08:21 Order name: NT PRO-BNP; Complete Time: 11:39 pat 01/05 08:21 Order name: PT-INR; Complete Time: 11:39 [facility] 01/05 08:21 Order name: Troponin (emerg Dept Use Only); Complete Time: 11:39 [facility] 01/05 08:21 Order name: XRAY Chest (1 view); Complete Time: 11:39 [facility] 01/05 08:21 Order name: CT Abd/Pelvis - IV Contrast Only; Complete Time: 11:39 [facility] 01/05 11:57 Order name: Urine Dipstick-Ancillary EDIL 01/05 11:59 Order name: Urine --Ancillary (enter results) 1 01/05 12:15 Order name: SARS-COV-2 RT PCR EDIL 01/05 07:24 Order name: IV Saline Lock; Complete Time: 08:07 tw4 01/05 07:24 Order name: Labs collected and sent; Complete Time: 08:07 4 01/05 08:21 Order name: EKG; Complete Time: 09:16 [facility] 01/05 08:21 Order name: Cardiac monitoring; Complete Time: 09:25 [facility] 01/05 08:21 Order name: EKG - Nurse/Tech; Complete Time: 09:25 [facility] 01/05 08:21 Order name: O2 Per Protocol; Complete Time: 08:51 [facility] 01/05 08:21 Order name: O2 Sat Monitoring; Complete Time: 08:51 [facility] EC:21 Rate is 65 beats/min. Rhythm is regular. QRS [place] is Normal. HI interval is normal. QRS pat interval is normal. QT interval is normal. No Q waves. T waves are Normal. No ST changes noted. Clinical impression: NSR w/ Non-specific ST/T Changes and No evidence of ischemia. Interpreted by me. Reviewed by me. Administered Medications: Discontinued: NS 0.9% 1000 ml IV at 125 ml/hr continuous 09:15 Drug: NS 0.9% 1000 ml Route: IV; Rate: 1 bolus; Site: right forearm; jl7 11:15 Follow up: Response: No adverse reaction; IV Status: Completed infusion; IV Intake: vg1 1000ml 09:15 Drug: Zofran (Ondansetron) 4 mg Route: IVP; Site: right forearm; jl7 11:33 Follow up: Response: No adverse reaction; Pain is decreased vg1 09:17 Drug: Pepcid (famotidine) 20 mg Route: IVP; Site: right forearm; jl7 11:33 Follow up: Response: No adverse reaction vg1 10:13 Not Given (Patient Refused): morphine 2 mg IVP once; (PAIN>8) RASS on ADMN: Combtv4, vg1 Very Agttd3, Agttd2, Rstlss1, AlertClm0, Drwsy-1, LtSdtn-2, ModSdtn-3, DpSdtn-4, UnArsble-5 x2 11:32 Drug: NS 0.9% 1000 ml Route: IV; Rate: 125 ml/hr; Site: right antecubital; vg1 12:19 Follow up: IV Status: Completed infusion vg1 Disposition: 01/05/21 11:47 Discharged to Home. Impression: Nausea and vomiting, Diarrhea, unspecified, Volume depletion. - Condition is Stable. - Discharge Instructions: Food Choices to Help Relieve Diarrhea, Adult, Diarrhea, Adult, Nausea and Vomiting, Adult, Diarrhea, Adult, [id number], Vomiting, Adult. - Prescriptions for Zofran ODT 4 mg Oral tablet,disintegrating - place 1 tablet by TRANSLINGUAL route every 8 hours for 1 day; 20 tablet. Pepcid 20 mg Oral Tablet - take 1 tablet by ORAL route every 12 hours for 10 days; 20 tablet. Phenergan 25 mg Rectal Suppository - insert 1 suppository by RECTAL route every 6 hours As needed; 20 suppository. - Medication Reconciliation Form, Thank You Letter, Antibiotic Education, Prescription Opioid Use form. - Follow up: Private Physician; When: 2 - 3 days; Reason: Recheck today's complaints, Continuance of care, Re-evaluation by your physician. Follow up: Donnell Young MD; When: 2 - 3 days; Reason: Recheck today's complaints, Re-evaluation by your physician. - Problem is new. - Symptoms have improved. Signatures: Dispatcher [employer] Portillo Menjivar MD MD cha Leal, Jahala, RN RN jl7 Hunter Gonzalez MD MD tw4 Natividad Ortega, RN RN vg1 Peterson Cohen RN RN jm8 Corrections: (The following items were deleted from the chart) 11:18 09:16 CORONAVIRUS+MR.LAB.BRZ ordered. [facility] 12:18 11:47 01/05/2021 11:47 Discharged to Home. Impression: Nausea and vomiting; Diarrhea, vg1 unspecified; Volume depletion. Condition is Stable. Forms are Medication Reconciliation Form, Thank You Letter, Antibiotic Education, Prescription Opioid Use. Follow up: Private Physician; When: 2 - 3 days; Reason: Recheck today's complaints, Continuance of care, Re-evaluation by your physician. Follow up: Donnell Young; When: 2 - 3 days; Reason: Recheck today's complaints, Re-evaluation by your physician. Problem is new. Symptoms have improved. pat
--- NOTE | 2021-01-05 11:48 | ER ---
Nurse's Notes [facility] Name: Reyna Garcia Age: 50 yrs Sex: Female : 1970 Arrival Date: 01/05/2021 Time: 06:21 Bed 13 Private MD: Diagnosis: Nausea and vomiting;Diarrhea, unspecified;Volume depletion Presentation: 01/05 06:53 Chief complaint: Patient states: I've been having nausea and diarrhea since yesterday jm8 evening. Coronavirus screen: Client denies travel out of the [place] in the last 14 days. Ebola Screen: Patient negative for fever greater than or equal to 101.5 degrees Fahrenheit, and additional compatible Ebola Virus Disease symptoms Patient denies exposure to infectious person. Patient denies travel to an Ebola-affected area in the 21 days before illness onset. Initial Sepsis Screen: Does the patient meet any 2 criteria? No. Patient's initial sepsis screen is negative. Does the patient have a suspected source of infection? No. Patient's initial sepsis screen is negative. Risk Assessment: Do you want to hurt yourself or someone else? Patient reports no desire to harm self or others. Onset of symptoms was January 04, 2021. 06:53 Method Of Arrival: Ambulatory 8 06:53 Acuity: KWASI 3 jm8 Triage Assessment: 06:56 General: Appears in no apparent distress. comfortable, Behavior is calm, cooperative, jm8 appropriate for age. Pain: Complains of pain in abdomen Pain currently is 4 out of 10 on a pain scale. Quality of pain is described as crampy, Pain began 1 day ago. Also complains of nausea. 06:57 EENT: No deficits noted. No signs and/or symptoms were reported regarding the EENT jm8 system. Neuro: No deficits noted. Cardiovascular: No deficits noted. Respiratory: No deficits noted. Airway is patent Trachea midline Respiratory effort is even, unlabored, Respiratory pattern is regular, symmetrical. GI: Abdomen is round Reports cramping, diarrhea, nausea, since yesterday. : No deficits noted. No signs and/or symptoms were reported regarding the genitourinary system. Derm: No deficits noted. No signs and/or symptoms reported regarding the dermatologic system. Skin is intact, is healthy with good turgor, Skin is dry, Skin is normal, Skin temperature is warm. Musculoskeletal: No deficits noted. No signs and/or symptoms reported regarding the musculoskeletal system. 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 - Social history:: Smoking status: Patient denies any tobacco usage or history of. Screenin:58 Abuse screen: Denies threats or abuse. Denies injuries from another. Nutritional jm8 screening: No deficits noted. Tuberculosis screening: No symptoms or risk factors identified. Fall Risk None identified. Assessment: 07:00 Reassessment: see triage assessment. 8 07:30 General: Appears in no apparent distress. uncomfortable, Behavior is calm, cooperative, jl7 appropriate for age. Pain: Complains of pain in abdomen diffusely Pain currently is 4 out of 10 on a pain scale. Neuro: Level of Consciousness is awake, alert, obeys commands, Oriented to person, place, time, situation. Cardiovascular: Patient's skin is warm and dry. Respiratory: Airway is patent Respiratory effort is even, unlabored, Respiratory pattern is regular, symmetrical. GI: Abdomen is non-distended. Derm: Skin is pink, warm \T\ dry. 08:30 Reassessment: Patient appears in no apparent distress at this time. No changes from jl7 previously documented assessment. Patient and/or family updated on plan of care and expected duration. Pain level reassessed. Patient is alert, oriented x 3, equal unlabored respirations, skin warm/dry/pink. 09:00 Reassessment: Dr. Scruggs at bedside assessing pt and discussing POC. jl7 10:13 General: Appears in no apparent distress. comfortable, Behavior is calm, cooperative. vg1 Pain: Complains of pain in left lower quadrant Pain currently is 3 out of 10 on a pain scale. Neuro: Level of Consciousness is awake, alert, obeys commands, Oriented to person, place, time, situation. Cardiovascular: Patient's skin is warm and dry. Respiratory: Airway is patent Respiratory effort is even, unlabored. GI: Abdomen is non-distended, Reports diarrhea, nausea. : No signs and/or symptoms were reported regarding the genitourinary system. EENT: No signs and/or symptoms were reported regarding the EENT system. Derm: Skin is intact, is healthy with good turgor. Musculoskeletal: Circulation, motion, and sensation intact. 11:21 Reassessment: Patient appears in no apparent distress at this time. Patient and/or vg1 family updated on plan of care and expected duration. Pain level reassessed. Patient is alert, oriented x 3, equal unlabored respirations, skin warm/dry/pink. Patient states feeling better. 12:17 Reassessment: Patient appears in no apparent distress at this time. Patient and/or vg1 family updated on plan of care and expected duration. Pain level reassessed. Patient is alert, oriented x 3, equal unlabored respirations, skin warm/dry/pink. Patient denies pain at this time. Patient states feeling better. Vital Signs: 06:43 BP 138 / 78; Pulse 73; Resp 18; Temp 98.8(O); Pulse Ox 98% on R/A; mw2 07:57 BP 121 / 85; Pulse 105; Resp 15; Pulse Ox 98% ; jl7 10:14 BP 126 / 87; Pulse 70; Resp 14; Pulse Ox 100% on R/A; vg1 11:22 BP 122 / 72; Pulse 68; Resp 16; Pulse Ox 100% on R/A; vg1 12:16 BP 115 / 74; Pulse 68; Resp 16; Pulse Ox 100% ; vg1 ED Course: 06:21 Patient arrived in ED. bb 06:55 Triage completed. jm8 06:59 Arm band placed on right wrist. jm8 07:00 Patient has correct armband on for positive identification. Bed in low position. Call jm8 light in reach. Side rails up X2. Adult w/ patient. 07:06 Niurka Madrid, MALENA is Primary Nurse. jl7 07:30 Initial lab(s) drawn, by me, sent to lab. Inserted saline lock: 22 gauge in right jl7 forearm, using aseptic technique. Blood collected. 08:11 Portillo Scruggs MD is Attending Physician. pat 09:35 CT Abd/Pelvis - IV Contrast Only In Process Unspecified. EDMS 09:59 XRAY Chest (1 view) In Process Unspecified. EDMS 10:15 Primary Nurse role handed off by Niurka Madrid RN vg1 10:15 Natividad Ortega, RN is Primary Nurse. vg1 11:47 Donnell Young MD is Referral Physician. pat 12:17 No provider procedures requiring assistance completed. IV discontinued, intact, vg1 bleeding controlled, No redness/swelling at site. Pressure dressing applied. Administered Medications: Discontinued: NS 0.9% 1000 ml IV at 125 ml/hr continuous 09:15 Drug: NS 0.9% 1000 ml Route: IV; Rate: 1 bolus; Site: right forearm; jl7 11:15 Follow up: Response: No adverse reaction; IV Status: Completed infusion; IV Intake: vg1 1000ml 09:15 Drug: Zofran (Ondansetron) 4 mg Route: IVP; Site: right forearm; jl7 11:33 Follow up: Response: No adverse reaction; Pain is decreased vg1 09:17 Drug: Pepcid (famotidine) 20 mg Route: IVP; Site: right forearm; jl7 11:33 Follow up: Response: No adverse reaction vg1 10:13 Not Given (Patient Refused): morphine 2 mg IVP once; (PAIN>8) RASS on ADMN: Combtv4, vg1 Very Agttd3, Agttd2, Rstlss1, AlertClm0, Drwsy-1, LtSdtn-2, ModSdtn-3, DpSdtn-4, UnArsble-5 x2 11:32 Drug: NS 0.9% 1000 ml Route: IV; Rate: 125 ml/hr; Site: right antecubital; vg1 12:19 Follow up: IV Status: Completed infusion vg1 Intake: 11:15 IV: 1000ml; Total: 1000ml. vg1 Outcome: 11:47 Discharge ordered by . pat 12:17 Discharged to home ambulatory, with family. vg1 12:17 Condition: stable 12:17 Discharge instructions given to patient, Instructed on discharge instructions, follow up and referral plans. medication usage, Demonstrated understanding of instructions, follow-up care, medications, Prescriptions given X 3. 12:18 Patient left the ED. vg1 Signatures: Dispatcher [employer] EDAK Portillo Scruggs MD MD cha Ballard, Brenda, RN RN bb Niurka Madrid RN RN jl7 Alton Pizarro mw2 Natividad Ortega, RN RN vg1 Peterson Cohen, RN RN jm8 Corrections: (The following items were deleted from the chart) 11:23 11:22 BP 133 / 84; Pulse 100bpm; Resp 18bpm; Pulse Ox 100% RA; vg1 vg1
[2021-01-05 11:57] LABS: Urine Blood Negative (Negative); Urine Glucose Negative (Negative); Urine Protein Negative (Negative); Urine pH 6.5 (5.0-7.0)
[2021-01-05 12:24] VITALS: TEMP 98.8
[2021-01-05 12:26] VITALS: O2SAT 100
[2021-01-05 12:31] VITALS: BP 115/74
--- NOTE | 2021-01-06 12:00 | EKG ---
Test Date: 2021-01-05 Test Time: 09:17:45 Tableau Report Developer: FAY MEASUREMENT RESULTS: Intervals: Rate: 65 TX: 166 QRSD: 74 QT: 396 QTc: 411 [place]: P: 53 TX: 166 QRS: 5 T: 56 INTERPRETIVE STATEMENTS: Normal sinus rhythm Septal infarct, age undetermined Abnormal ECG Compared to ECG 07/02/2020 09:59:19 Myocardial infarct finding now present Atrial fibrillation no longer present Left ventricular hypertrophy no longer present ST (T wave) deviation no longer present Electronically Signed On 01-06-21 11:54:16 CDT by Imer Felipe
[2021-01-12] MEDS ORDERED: LORazepam 2 MG/ML VIAL ONE ×2 (20:46→22:02)
== END 2021-01-05 12:18 | disposition home or self-care (01) ==
LOC: ER 06:11
DX: R11.2 Nausea with vomiting, unspecified (principal); R19.7 Diarrhea, unspecified; E86.9 Volume depletion, unspecified; Z20.822 Contact with and (suspected) exposure to COVID-19
CPT/HCPCS: 96361; 93005; 85025; 80048; 36415; 83735; 81025; 85610; 80076; 81003; 84484; 83690; 83880; 74177; 71045; 96375; 96374; 99284; U0003; Q9967; J7030 ×2; J2405; J2270

== ENCOUNTER 2021-01-12 17:08 | Emergency (ER) | payer BC ==
--- OUTSIDE RECORDS SUMMARY | 2021-01-12 17:12 | XMS REPORT | Continuity of Care Document ---
:1970 Author Organization [facility] t Address [address] [place] [address] Care Team Providers Name Role Phone Kaylyn Carlitossara Primary Care Physician Jose Mc MD Attending Clinician Mercy Harden MD Attending Clinician [phone] JOSE MC Attending Clinician Unavailable Radiology Attending Clinician Unavailable Doctor Unassigned, Name Attending Clinician Unavailable ALEX GROVES Attending Clinician Unavailable Alex Groves MD Attending Clinician Mary Zaragoza MD Attending Clinician [phone] VISIT, MPB Attending Clinician Unavailable [facility] Admitting Clinician Unavailable ALEX GROVES Admitting Clinician Unavailable Payers Payer Name Policy Type Policy Effective Date Expiration Date Sour ce Number BLUE CROSS/BLUE [id number] 2018 [employer] PPO 00:00:00 - Medical POS EPO Center [id number] [phone], [place] [address] Problems Condition Condition Condition Status Onset Resolution Last Treating Co mments Source Name Details Category Date Date Treatment Clinician Date Gastroente Gastroente Disease Active C HI [facility]itis [facility]05 [facility] Depressive Problem Active 2019-09-27 M emoria disorder 23:16:42 l (disorder) Mane n Depressive disorder (disorder) Active Problem 09/27/2019 [facility] Group Joint pain Problem Active 2019-09-27 M emoria (finding) 23:16:42 l Joint Basil pain (finding) Active Problem 09/27/2019 Medical Group Allergies, Adverse Reactions, Alerts Allergy Allergy Status Severity Reaction(s) Onset Inactive Treating Comm ents Source Name Type Date Date Clinician No Known No Known Active Memori a Medicati Medicati l on on Basil Allergie Allergie s s Social History Social Habit Start Date Stop Date Quantity Comments Source History [facility] - Alcohol Std Drinks [facility] History [facility] - Alcohol Binge Medical [facility] ter Sex Assigned At [facility] Exposure to Not sure [facility] - SARS-CoV-2 (event) [facility] Tobacco use and 2021-01-09 2021-01-09 Never used [facility] - exposure 00:00:00 00:00:00 [facility] Alcohol intake 2021-01-09 2021-01-09 Current [facility] es - 00:00:00 00:00:00 non-drinker of Medical nter alcohol (finding) History [facility] 2020-03-27 2020-03-[address] [facility] - Alcohol Frequency 00:00:00 00:00:00 [facility] Smoking Status Start Date Stop Date Source Never smoker [facility] edical [place] Medications Ordered Filled Start Stop Current Ordering Indication Dosage Frequency Signature Comments Components Source Medication Medication Date Date Medication? Clinician (SIG) Name Name ondansetron Yes 4mg Take [address] (ZOFRAN) 4 6-05 by mouth 2 Mc es - MG tablet 15:43: (two) Medical 51 times Center daily as needed for Nausea. pantoprazol Yes 40mg QD Take [address] [facility] 6-05 by mouth [facility] - (PROTONIX) 15:43: daily. Medic al 40 MG 51 Center tablet dicyclomine 2021- Yes 10mg Take [address] (BENTYL) 10 6-05 06-05 capsule Luke s - MG capsule 00:00: 23:59 (10 mg Medi damon 00 :00 total) by Center mouth 3 (three) times daily as needed. amitriptyli 2020- Yes 25mg QD Take 1 [facility] St leo (ELAVIL) 01-09 tablet (25 L ukes - 25 MG 00:00: 23:59 mg total) Medica l tablet 00 :00 by mouth Center nightly for 30 days. Vital Signs Vital Name Observation Time Observation Value Comments Source Systolic blood 2021-01-09 22:53:00 143 mm[Hg] [facility] Diastolic blood 2021-01-09 22:53:00 66 mm[Hg] [facility] Heart rate 2021-01-09 22:53:00 66 /min [facility] Body temperature 2021-01-09 22:53:00 36.67 Svitlana [facility] Respiratory rate 2021-01-09 22:53:00 18 /min [facility] Body height 2021-01-09 11:21:00 167.6 cm [facility] Body weight 2021-01-09 11:21:00 88.451 kg [facility] BMI 2021-01-09 11:21:00 31.47 kg/m2 [facility] Oxygen saturation in 2021-01-09 11:21:00 98 /min [facility] Arterial blood by Medical Ce nter Pulse oximetry Systolic (mm Hg) 2019-09-10 20:59:00 Asif Gracia Diastolic (mm Hg) 2019-09-10 20:59:00 Kevin Gracia Heart Rate 2019-09-10 20:59:00 [facility] Height 2019-09-10 20:59:00 160.02 cm [facility] Weight 2019-09-10 20:59:00 [facility] BMI Calculated 2019-09-10 20:59:00 Jairo Hardwick Procedures Procedure Date / Time Performing Clinician Source Performed HIGH SENSITIVITY TROPONIN 2021-01-09 20:08:00 Lesa Harden [facility] COMPREHENSIVE METABOLIC 2021-01-09 20:08:00 Lesa H[address] [facility] PANEL [facility] CBC W/PLT COUNT & AUTO 2021-01-09 13:42:00 Triny Mc [facility] - DIFFERENTIAL [facility] HCG, QUANTITATIVE, 2021-01-09 13:42:00 Triny Mc [facility] ukes - [facility] ECG 12-LEAD 2021-01-09 11:06:45 Unknown, Hl7 Doctor [facility] REPORT OF PROCEDURE - 2020-03-30 11:41:09 Michael Groves [facility] ENDOSCOPY [facility] REPORT OF PROCEDURE - 2020-03-30 11:39:31 Michael Groves [facility] ENDOSCOPY [facility] TISSUE EXAM 2020-03-30 10:57:00 Michael Groves [facility] COLONOSCOPY,BIOPSY 2020-03-30 10:33:00 [facility] UPPER ENDOSCOPY,BIOPSY 2020-03-30 10:33:00 Michael Groves CH I [facility] POCT , URINE 2020-03-30 10:12:00 Chelo Zaragoza CH I [facility] Appendectomy [facility] Partial colectomy [facility] Plan of Care Planned Activity Planned Date Details Comments Source Future Scheduled 2021-04-[address] [facility] - Test 00:00:00 (Season Ended) [code Medical Center = INFLUENZA VACCINE (Season Ended)] Future Scheduled 2020-08-[address] [facility] - Test 00:00:00 (12+) [code = [facility] DEPRESSION SCREENING (12+)] Future Scheduled [address] [facility] - Test 00:00:00 (procedure) [code = [facility] 61786369] Future Scheduled [address] [facility] - Test 00:00:00 malignant neoplasm of [facility] cervix (procedure) [code = 523371254] Future Scheduled 1990 DTAP/TDAP/TD VACCINES [facility] 00:00:00 (1 - Tdap) [code = Medical C enter DTAP/TDAP/TD VACCINES (1 - Tdap)] Future Scheduled 1989 HEPATITIS C SCREENING [facility] 00:00:00 [code = HEPATITIS C Medical Center SCREENING] Future Scheduled 1983 COVID-19 VACCINE (1) [facility] - Test 00:00:00 [code = COVID-[address] VACCINE (1)] Encounters Start End Encounter Admission Attending Care Care Encounter Source Date/Time Date/Time Type Type Clinicians Facility Department ID 2020-09-24 2020-09-24 [facility] Radiology DCMB [id number] 14:00:34 23:59:00 Encounter SPECIALTY [id number] [facility] [id number] CENTER AT [id number] RADHA 800 [facility] 2020-09-24 2020-09-24 [facility] Radiology [facility] [id number] 13:59:53 13:59:53 Encounter SPECIALTY [id number] [facility] [id number] CENTER AT [id number] [facility] 800 [facility] 2020-08-19 2020-08-19 [facility] Radiology [facility] [id number] 14:40:00 23:59:00 Encounter [place] [id number] [place] [id number] [place] [id number] 800 2020-08-19 2020-08-19 Orders Doctor ZACH [id number] 00:00:00 00:00:00 Only Unassigned, JEANNE [id number] [place] [id number] 2019-09-25 2019-09-25 Outpatient VISIT, [facility] [id number] 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 2019-09-10 2019-09-10 Outpatient [facility] [id number] 14:30:00 23:59:59 00 Results Test Description Test Time Test Comments Results Result Sourc e Comments ECG 12 lead Interface, External Ris [facility] In - 01/11/2021 6:31 Mc es - 06:31:00 AM CDTVentricular Rate Me dical 76 BPMAtrial Rate 76 Cent er BPMP-R Interval 162 msQRS Duration 78 msQ-T Interval 376 msQTC Calculation(Bazett) 423 msP [place] 50 degreesR Ambler 1 degreesT [place] 42 degreesNormal sinus rhythmNormal ECGNo previous ECGs availableConfirmed by MD MIKE, SARIAH Patterson ([id number]) on 01/11/2021 6:30:57 AM High Sensitivity Troponin I 2021-01-09 21:01:00 Test Item Value Reference Range Interpretation Comme nts Troponin I HS (test <4 See_Comment [Aut omated message] The code = 26943-8) system which generated this result tra nsmitted reference range : <=17 pg/ml. The refe rence range was not u sed to interpret this result as normal/abnormal . QUIRINO (test code = QUIRINO) Pta ID - [facility] CASE MANAGER STAT High Sensitivity Troponin-I results should be used in conjunction with other diagnostic information such as ECG, clinical observations and information, and patient symptoms to aid in the diagnosis of CO. Lab Interpretation (test Normal code = 40129-4) [facility] [id number] 21:01:00 Test Item Value Reference Range Interpretation Comments HIGH SENSITIVITY < pg/ml See_Comment [Automated message] TROPONIN I (test code = The system which [id number]) generated this result transmitted ref erence range: <=17. Th e reference range was not used to interpr et this result as normal/abnormal . Pta ID - EMERChartboostThe BEHAVIORAL HEALTH CASE MANAGER STAT High Sensitivity Troponin-I results should be used in conjunction with other diagnostic information such as ECG, clinical observations and information, and patient symptoms to aid in the diagnosis of CO.Comprehensive metabolic [id number] 20:53:00 Test Item Value Reference Range Interpretation Comments Protein, Total (test 7.2 See_Comment Specime n slightly code = 2885-2) hemolyzed [Automated message] The system which generated this result transmit deidre reference range : 6.0 - 8.3 gm/dL . The reference range was not u sed to interpret th is result as normal/abnormal . Albumin (test code = 4.1 g/dL 3.5-5 Specime n slightly 14412-2) hemolyzed Alkaline Phosphatase 71 U/L 40-150 (test code = 6768-6) Total Bilirubin (test 0.8 mg/dL 0.2-1.2 Specim en slightly code = 1974-) hemolyzed Sodium (test code = 142 meq/L 586-060 2502-2) Potassium (test code 4.2 meq/L 3.5-5.1 Specime n slightly = 2823-3) hemolyzed Chloride (test code = 109 meq/L 98-107 H 2074-0) CO2 (test code = 21 meq/L 22-29 L 2027-) BUN (test code = 8 mg/dL 7-21 3094-0) Creatinine (test code 0.82 mg/dL 0.57-1.25 Specim en slightly = 2159-0) hemolyzed Glucose (test code = 88 mg/dL 70-105 2344-7) Calcium (test code = 9.1 mg/dL 8.4-10.2 32889-6) AST (test code = 17 U/L 5-34 Specimen sl ightly 1920-8) hemolyzed ALT (test code = 14 U/L 6-55 Specimen sl ightly 1742-6) hemolyzed EGFR (test code = 74 mL/min/1.73 [place] [address]-7) NOT ACCURATE CREATININE CLEARANCE IN PREDICTING GLOMERULAR FILTRATION RATE . ESTIMATED GFR I S NOT APPLICABLE FOR DIALYSIS PATIEN TS. QUIRINO (test code = QUIRINO) Pta ID - FOREIGN Lab Interpretation Abnormal (test code = 34115-6) [facility] [id number] 20:53:00 Test Item Value Reference Range Interpretation Comments TOTAL PROTEIN 7.2 gm/dL 6.0-8.3 Specimen sligh tly (BEAKER) (test code = hemoly zed 770) ALBUMIN (BEAKER) 4.1 g/dL 3.5-5.0 Specimen sl ightly (test code = 1145) hemolyzed ALKALINE PHOSPHATASE 71 U/L 40-150 (BEAKER) (test code = 346) BILIRUBIN TOTAL 0.8 mg/dL 0.2-1.2 Specimen sli ghtly (BEAKER) (test code = hemoly zed 377) SODIUM (BEAKER) (test 142 meq/L 136-145 code = 381) POTASSIUM (BEAKER) 4.2 meq/L 3.5-5.1 Specimen slightly (test code = 379) hemolyzed CHLORIDE (BEAKER) 109 meq/L 98-107 H (test code = 382) CO2 (BEAKER) (test 21 meq/L 22-29 L code = 355) BLOOD UREA NITROGEN 8 mg/dL 7-21 (BEAKER) (test code = 354) CREATININE (BEAKER) 0.82 mg/dL 0.57-1.25 Specimen slightly (test code = 358) hemolyzed GLUCOSE RANDOM 88 mg/dL 70-105 (BEAKER) (test code = 652) CALCIUM (BEAKER) 9.1 mg/dL 8.4-10.2 (test code = 697) AST (SGOT) (BEAKER) 17 U/L 5-34 Specimen slightly (test code = 353) hemolyzed ALT (SGPT) (BEAKER) 14 U/L 6-55 Specimen slightly (test code = 347) hemolyzed EGFR (BEAKER) (test 74 mL/min/1.73 ESTIMA DEIDRE GFR IS code = 1092) sq m NOT ACCURATE CREATININE CLEARANCE IN PREDICTING GLOMERULAR FILTRATION RATE . ESTIMATED GFR I S NOT APPLICABLE FOR DIALYSIS PATIEN TS. Pta TOMMY [facility] quantitative, [id number] 14:33:00 Test Item Value Reference Range Interpretation Comments hCG Quant (test code <1 See_Comment [Autom ated = 02812-4) message] The system which generated this result transmitted reference range : 0 - 10 mIU/mL. The reference range was not used to interpr et this result as normal/abnormal . QUIRINO (test code = QUIRINO) Non- Females: <10 mIU/mL Females: Gestation Age Reference Range(mIU/mL) 0.2-1 Week 5-50 1-2 Weeks 50-500 2-3 Weeks 100-5,000 3-4 Weeks 500-10,000 4-5 Weeks 1,000-50,000 5-6 Weeks 10,000-100,000 6-8 Weeks 15,000-200,000 2-3 Months 10,000-100,000 Pta TOMMY - FOREIGN Lab Interpretation Normal (test code = 17850-2) [facility], [id number] 14:33:00 Test Item Value Reference Range Interpretation Comments GONADOTROPIN, CHORIONIC (HCG) QUANT < mIU/mL 0-10 (BEAKER) (test code = 649) Non- Females: <10 mIU/mL Females: Gestation Age Reference Range(mIU/mL) 0.2-1 Week 5-50 1-2 Weeks 50-500 2-3 Weeks 100-5,000 3-4Weeks 500-10,000 4-5 Weeks 1,000-50,000 5-6 Weeks 10,000-100,000 6-8 Weeks 15,000-200,000 2-3 Months 10,000-100,000 Pta ID - [facility] with platelet count + automated [id number] 13:58:00 Test Item Value Reference Range Interpretation Comments WBC (test code = 6690-2) 7.8 See_Comment [A utomated message] The system PushCall generated this result transmitted ref erence range: 3.5 - 10 .5 K/L. The refe rence range was not u sed to interpret this result as normal/abnor mal. RBC (test code = 789-8) 5.12 See_Comment [Au tomated message] The system [employer]Call generated this result transmitted ref erence range: 3.93 - 5 .22 M/L. The refe rence range was not u sed to interpret this result as normal/abnor mal. MCHC (test code = 786-4) 33.9 See_Comment [A utomated message] The system [employer]Call generated this result transmitted ref erence range: 32.2 - 3 5.5 GM/DL. The refe rence range was not u sed to interpret this result as normal/abnor mal. Hematocrit (test code = 44.0 % 34.1-44.9 4544-3) MCV (test code = 787-2) 85.9 fL 79.4-94.8 MCH (test code = 785-6) 29.1 pg 25.6-32.2 RDW (test code = 788-0) 12.4 % 11.7-14.4 Platelets (test code = 307 See_Comment [Aut omated message] 187-3) The system [employer]Call generated this result transmitted ref erence range: 150 - 45 0 K/CU MM. The referen ce range was not u sed to interpret this result as normal/abnor mal. MPV (test code = 9.1 fL 9.4-12.3 L 05445-7) nRBC (test code = 413) 0 See_Comment [Aut omated message] The system PushCall generated this result transmitted ref erence range: 0 - 0 /1 00 WBC. The refere nce range was not u sed to interpret this result as normal/abnor mal. % Neutros (test code = 69 % 429) % Lymphs (test code = 23 % 430) % Monos (test code = 7 % 431) % Eos (test code = 432) 0 % % Baso (test code = 437) 1 % # Neutros (test code = 5.35 See_Comment [Aut omated message] 670) The system PushCall generated this result transmitted ref erence range: 1.56 - 6 .13 K/L. The refe rence range was not u sed to interpret this result as normal/abnor mal. # Lymphs (test code = 1.77 See_Comment [Auto mated message] 414) The system PushCall generated this result transmitted ref erence range: 1.18 - 3 .74 K/L. The refe rence range was not u sed to interpret this result as normal/abnor mal. # Monos (test code = 0.54 See_Comment H [Autom ated message] 415) The system PushCall generated this result transmitted ref erence range: 0.24 - 0 .36 K/L. The refe rence range was not u sed to interpret this result as normal/abnor mal. # Eos (test code = 416) 0.03 See_Comment L [Au tomated message] The system PushCall generated this result transmitted ref erence range: 0.04 - 0 .36 K/L. The refe rence range was not u sed to interpret this result as normal/abnor mal. # Baso (test code = 417) 0.04 See_Comment [A utomated message] The system PushCall generated this result transmitted ref erence range: 0.01 - 0 .08 K/L. The refe rence range was not u sed to interpret this result as normal/abnor mal. Immature 0 % 0-1 Granulocytes-Relative (test code = 2801) Lab Interpretation (test Abnormal code = 44718-9) [facility] W/PLT COUNT & AUTO [id number] 13:58:00 Test Item Value Reference Range Interpretation Comments WHITE BLOOD CELL COUNT (BEAKER) 7.8 K/ L 3.5-10.5 (test code = 775) RED BLOOD CELL COUNT (BEAKER) 5.12 M/ L 3.93-5.22 (test code = 761) HEMOGLOBIN (BEAKER) (test code = 14.9 GM/DL 11.2-15.7 410) HEMATOCRIT (BEAKER) (test code = 44.0 % 34.1-44.9 411) MEAN CORPUSCULAR VOLUME (BEAKER) 85.9 fL 79.4-94.8 (test code = 753) MEAN CORPUSCULAR HEMOGLOBIN 29.1 pg 25.6-32.2 (BEAKER) (test code = 751) MEAN CORPUSCULAR HEMOGLOBIN CONC 33.9 GM/DL 32.2-35.5 (BEAKER) (test code = 752) RED CELL DISTRIBUTION WIDTH 12.4 % 11.7-14.4 (BEAKER) (test code = 412) PLATELET COUNT (BEAKER) (test 307 K/CU MM 150-450 code = 756) MEAN PLATELET VOLUME (BEAKER) 9.1 fL 9.4-12.3 L (test code = 754) NUCLEATED RED BLOOD CELLS 0 /100 WBC 0-0 (BEAKER) (test code = 413) NEUTROPHILS RELATIVE PERCENT 69 % (BEAKER) (test code = 429) LYMPHOCYTES RELATIVE PERCENT 23 % (BEAKER) (test code = 430) MONOCYTES RELATIVE PERCENT 7 % (BEAKER) (test code = 431) EOSINOPHILS RELATIVE PERCENT 0 % (BEAKER) (test code = 432) BASOPHILS RELATIVE PERCENT 1 % (BEAKER) (test code = 437) NEUTROPHILS ABSOLUTE COUNT 5.35 K/ L 1.56-6.13 (BEAKER) (test code = 670) LYMPHOCYTES ABSOLUTE COUNT 1.77 K/ L 1.18-3.74 (BEAKER) (test code = 414) MONOCYTES ABSOLUTE COUNT (BEAKER) 0.54 K/ L 0.24-0.36 H (test code = 415) EOSINOPHILS ABSOLUTE COUNT 0.03 K/ L 0.04-0.36 L (BEAKER) (test code = 416) BASOPHILS ABSOLUTE COUNT (BEAKER) 0.04 K/ L 0.01-0.08 (test code = 417) IMMATURE GRANULOCYTES-RELATIVE 0 % 0-1 PERCENT (BEAKER) (test code = 2801) Tissue [id number] 08:22:00 Test Item Value Reference Range Interpretation Comments Case Report (test code Surgical Pathology = 104) Report Case: [id number] Authorizing Provider: Michael Groves MD Collected: 03/30/2020 10:57 AM Ordering Location: [facility] ENDOSCOPY Received: 03/30/2020 02:13 PM SERVICES Pathologist: Augustina Nunez MD Specimens: A) - Duodenum, random biopsies B) - Stomach, random biopsies C) - Distal Esophagus, random biopsies D) - Proximal Esophagus, random biopsies E) - Colon Biopsy, Random F) - Rectum, random biopsies DIAGNOSIS (test code = [id number] 3220) FuZzEwMzNcZnRuYmpcdWMx BUmaluXoTJowf5DwB2HhQs AwMFxhbnNpXGRlZmxhbmcx KOOzOSW5tyUyQITkSGmrIC FqQTdiUq2mgHMuaDhkXpSw QJKrl7kudlAWdmlfaVm0u5 dvEFOgSlH8kDBzSExeU4ew ntCgfVDtFBSaZVp0rD20WA GexM4jgBRzBZjgipYwOcC8 XXbeXWDmIfV8LSHjzIRfZL FvU9heXCYtJMboMMQcJFgp pWVkJJY0kQbgs6V3kIMrzG HohAkpDbGnRyCwLTJMf8Ac SVi3uDvdQ0BeFMAuVkK1iY QgUGFyYWdyYXBoIEZvbnQ7 eX24GLxyvxI8pAJhv3Ijf0 4zg965nZ1pbJHeERE5IXYp GVPgsIFlKXHnYQX9MROufA OcV1f9MyJrqTVxH7Y4IoFm nMIxX8N4QmKpsRFeW8R2As KciSLsBZHfpFAwZd6thFCo rUFhwl3zfa99CSC7o9RmxY wmFTN2EDM0XsTgOw4gfJHi PBXaWH9pHoQlfOVtUXXfol 72cMcjSYysrkNjkP0vQaDj AKDsgFTdABIxSP1pcHKtGX XevP8zkimdNUMrPbRrgrwn WJJdyFfawhQuFs8pqJsjRI O0GBbgB4zzxC8uLiI2ZQyv A0uhkW9rIBe6KKlkuIO8OE NiiM4nEH7nkbsdj4lsPmQp EJ7xtqnew2dsVjTuAC0gpd j6n5ufAoCtTU4vhcwsw2py NzIwXGhlYWRlcnkwXGZvb3 RyhwaaOIEuz9LoN1QtdHqf S20geGteA17rVUEorWmesN 5rpSsqnZ5uLcDyFyEnHLan bFxwbGFpblxmMVxmczIwXG suckryEPSgZVuxN3cnWhRd EDZnbUlcRZxnv8UlBEGpCL ReGwBpFH4qP79HCYdqEn7I IYgzHSDDE2SIYgCARTXHSE 1YR3wCPofqNGNvvzYvRKEt OTJUWZDHSoKJDI3CAJ1AJC lTIFxwYXJccGFyIEIuIFNU P30QS5ylGYNZMdNAYZGSWZ 8XE6zGZkfrdUZuSQEwZF9s R7iZY84WVbMMFwZIOAxUYF BHQVNUUklUSVNccGFyICAg KZ6fK1fZJBrGQJszIeWAQ5 AALiIhL7DVRMJZUWCZCGpu iUCeXNTbAIlgASMyDl6uLB MPUHuUI0DNHUMRWG1HB28o DfpBNTLVRTF2JZNjoeBvYT BjQDMAJpmUFUYJC74EPVLK SVRJUyBccGFyXHBhciBELi OBA01ZJHASBUFkSWLXD2fL CJIBZWNEYH9JI7dYXexeiD HiHDMgVU4eMrVOWLWNFSXZ N7JICFjJWTgOKSxcAFNmpD BkJEZxHFHXMD0JEZQHCL5W Q40oTfsAXHNGYBX1CVSlny WsYSRyDU6JXJQZZ0OVElHP M8bSIBEIU4KRZCukRZJfdW SeLKJqUMCOM3YTQRolGrIQ HR5UOZDTA0FEDQYWDhgvOL EnAYLlXLNRSQ6PU38oAgEG THLSNU4SP39KVAOHLOXWRL zBAIMAL1xCZLMCI9RQV1PM FGiiARAhjRPtYN4oQn4goI ruUGI9l4dhlAZuRUVwhSId ODAwMFxhbnNpXGRlZmxhbm xvKRMxXZR2pjUsTXQxMTqq YLSdGByiQg0stAOnkUiuAq UuORUwa0wjxpZVphzshIo3 g3tjTZCyJmT5kCOiVKfaE2 mmusXofMQuQTFhMZn3tT91 ECPirN0zcTCrWFsvwxVsFt T9DKctPWDcArE9ILYkgQIv NUKyH1ouNBRwPKasJIZuBC wjeSEuPHT7mIjog1U8eARw aGVldHtcZjBcZnMyMiBOb3 ZhEOi5lSsyR3FsPUZhUmH9 bHQgUGFyYWdyYXBoIEZvbn P8xO36VHsoniC0iPUha7Bp j81jc779iN2peYJcCOH1NS YnUGCwwIBzDDKwILN9PSLe xFGqM4waSFIgAU5tuopoYV ygUAhpQRFrbBV2HNMyrGGd C6JqFKKnGMkdCRWgqrj0Yz SgWa5lpTEuuOqcWRbbd3ev z5spgMXmOwd1XXFoDqCnXo zrKMhoz1Bol8lvMTThvs5l PVQ6aRVpsHmyg0N8sWMzHP IxvEEpYGHxKN1ldBWdIHCo lB4wwxmhJPUhSzSnyaqjNX GmfLeezfDmRm8zbIniNUO2 OIgzD2pbcA5kJnU6MVvfP7 hljE9fIZf2MPwmHYAptPU5 czO5ORFaeZNlW4CfrA4tGH LnBR7jtau9q5psLRJ9DNry MDIbDuZ0hqU8GYZgrIJvYB CggBrlZVces668ZJN9RmBb VLKgy6PzB4YboBipE29pjB zeM56dIIEniTvowR6xjXba xA6yDpNjRkVgLWizfKjvQR 5wIYWiY6qawBRlNNLkJMBl N4lrKgNokQ1hjDsmFGkofy WzCAFzVhl5LXGvhMCyCEQt Nmv3KQQtLWExK43mdjqqWL J7rE9lm0kzv2VbPBbtOZM7 ZBJwi87rGZfexbA6XBpnRs 7wJlVeYPJ0HIkzCJK3tC== CPT Code(s) (test code g8jnfDYyHKHfhYUxFjOoVZ = 3357) VeSPNlg3gnMMAevFOiZcGo MzNcZnRuYmpcdWMxXGRlZm Cnm6zhg608jJOai7kcSXYu DeW5kSFqFWBmqHFgZ312s4 zui0rwebSelBG7CIOaNQV4 FDbyiePtogV9EHmpjRFmTv F4TLyttvAzPLxqyxWmtzNj Pjb3MCJpU789QBS0kLefx8 wkHUA2IKMfJEKmOsYmYz1b uEVnB683OXWiRKRMXBEhnP s5SLAefzLsvgSwgYFLe005 M949m3ouSMZqvmPoxEzTte lss8zkB728APWjkOGigtMs MzAnZOFtyVCuaYB3UFNeVJ 5zwbiwJjUxXV9bdqhwKsIs NJ7xuty6VcLoGP5lqickWa HqWTcdGFPhsskwRXCsz8Bm zxuoBJ3kB5Nvl8I6iE6hvQ UaVRTqlLDpVaRtJXPskj2s bSOzCKasp2LcXUP7yvR6pS ExtNVoVZTqDU74Pmvnl3Xn TlpoTYU3TBUacpBvu1Lbp9 crFuDrjjCcD4txI6UxTRJf SYBaORDtJsGeuwXlg3Oia0 XtpGMqkBt8f8pjQLMqDJSt gIuig0tfBBL2FUQzQ5C4xK Npw2omFLgpWEIkvJU1xbjg LJfjTCYaihX6kjieDDagAH TuhGX0obneQGfcNSMgKcA5 bnynNIdoEMOwDXL0FVbet5 42FST9RMhrYvecQOauNRJu bmNvbnRccGduZGVjXHBsYW luXHBsYWluXGYwXGZzMjRc qOqyiVqtcO8hEjBpDsVvVD bjZP1vHQSbA0udrLDkNVOc HMViH3apWbIohD5ieAxcKI bybcPsPEe4IqU9MNl6SrE4 ODMxMlxwYXJ9 CLINICAL HISTORY (test r5kapZKnABMuiDExOzOqWF code = 3350) HkKPWbx3bkNIIfjYWsZuPx MzNcZnRuYmpcdWMxXGRlZm Maw9cem682qNXfl0ejGFTt VsB1vAZnMCAbcTUqT177YJ XcWWhae8hpx7ZeFEPczARy l6V9WNKEdimdjQq7gWgpV7 8gf2I2OceaN3dqOIFyPDnt GPYoKNzcpATlOXL1GOBuRG E9FVqepoUlatZ9UTvkpFVi QvT8JIq4f8ksaPdwVFDvCC Z2o0nvTIlnzjKaBR1lst4x wOr4q6vdbtYkEIQlHCSluA TXQWSwV5CghIwzOc7tvOr4 gLagWtvbYWX0Idd2BT9jik 34epo1qZqjGMEggtncTfB0 QNaiGKMrvdyyETu5OAuvKW JnbDcyMFxtYXJncjcyMFxt YXJndDcyMFxtYXJnYjcyMF hdLRVeJLZ9HArjp952SGS2 NBsec9kbv4jcvGBwJin3VU IgMzBxDoxyOYapw8Thk0zs ITZowa5mXLR7vNUysQppd7 Z2aGAdYVOiwYAmolPuOXBr IqO5XWrwEW2bkw68MICfJA O9vk2geTJooAoaqgThrGDr NHtlY6OfOURho771JSOaV3 GrWYFbk4Y6usHuVyAfWOTi fYU1txL1MTUtHYs2aSRbyu O3ojVcwHJfZ7ligE61YnZu rKRkX7UjhU80VtWksMXrZ0 OvpM09YgJwyWJrG1TznJ57 TaKjsJGwADZisAVbTr0owL BntLCmp0QdwYSsDTvdD22t j841XPNiuxZzN4dqzSCuyd xwbGFpblxmMFxmczIwXHFs XHBsYWluXGYwXGZzMjBccG idjF6eHyMlOiPfEYOOhg8t FEG6hmR0QUHohM9sc2Bib1 Q4UKAmJVK5gXSzczNiorSx n4HmqMopEELlz8GjbHdjMF NfHGBvDIMdLIZrs8C1d2Rb WNugW61va4xdDjKqoDKbqu njKDXgPTJxqBDhOG8ySNYx y61pm97wc6LwG5viCMMaik 0= SPECIMEN SOURCE (test n1jraAYdPEPcmSBkZcBlCR code = 3377) IjCIPzt6aqGHIlxKKfMiRp MzNcZnRuYmpcdWMxXGRlZm Nep4ogg776kVRmk9qmJQOy JbT3vAYoNWSmqPVjP967KJ HeJYmpx0koz7QaOEFhcEPp t7L9UFMXblhipNd2qGnoR3 7jj3K0ArzfA3etFYAbVVll IPDuLXnbcMVuDHC0QIYeJJ F1FWrjpyQlveE9LUvscKCa HwA2NNq6e5fcjSvbKRZgKT E7t5pzUMweebEaLA9sic2q sTr8o4tmkxLgHJXyCPUqzT NWTPUkX8HrwIanIj6iyHx3 yQdfVichLUX9Hlp0UD4htq 34alf5kHgtWGQqutnlEfD8 GXiqIIEbenfuFQu5FMlzQR JnbDcyMFxtYXJncjcyMFxt YXJndDcyMFxtYXJnYjcyMF nfDNGbSVC9CSara783IYF3 OGrqf5fbd3yqeWCgOcv3KY QcGfCaPuxwXWjlz4Adp3ux VTFxdp7kMVP4vMDpoUvft2 L1uKHqMPVkjLLutzYlXKLw SnG1WTzbOP6esk32CYSzZO J6et5hiEUskKkqcdHzcZTt PQlmV0NqZUYro108UPMbB6 UsXNQkg2P2veBkEeTgSAMi xLG5cqL2YVVtNAb3pWHxty R6zcRhzLLyG2jphU94RwKk mOTfO2BcqE89QpBvrPClO2 KnsT10PiUyuGRdW4SuaC87 ZgBkbOGcRPKijBSzHy2acT DgtREok3NekMUrXCscY05g z298OJLyxaWiT6itrCEwjq xwbGFpblxmMFxmczIwXHFs XHBsYWluXGYwXGZzMjBccG aazK3tRyRlSyHcJXHGkICw kD2nmaAROVqpCYkwIaNvEF RuJrL5r1DxvkHiHe6kKlIf ZAd5YSQdbE8hPl0kkJZxvC 6bXMTrJB85dRIojUdzQEJx HCohXM94jjCqUtPshCychZ 5mMtByJaXnGVH6QA7pnXwj n2oieJYrefmhZVuxksQnZX R2wVGmkYXiCMhvuyCmQLOt xozmuS2wPG61JErcNM70MR jqIZ0dQZKuGdKNdCGey5Yh M9skQX0wxFNtMU34qFAqtA lhv8ColVs7fTXsRWncEVMd x2VqkQGeAWKfMoIeeJPeRH DnukAViDRcgI1iedBTPJlu ZElsRkAuTFNrKjP3a75aN0 giLiBSZWNlaXZlZCBpbiBm z2GrGMqlqdYeouLvuIOciM ehfCVpOmQqP57qjxOuDT6d XTYuyv3spH4sGRRdb3V1AG FaH1rpEEopvExfGnU0hhTv LjYgeCAwLjMgeCAwLjIgY2 2cZPJwWXItdYJbxB1zkkJa cyBlbnRpcmVseSBzdWJtaX W5UCFmrJ0rP3Mxf9O0eLIa QjEuIFxwYXJccGFyIFNwZW NpbWVuIEMgaXMgbGFiZWxl ZCAiZGlzdGFsIFxwbGFpbl nrSNgtzhWhHLIdj5UeQKp8 esRyPZIuA7CgeiNbZYokQQ Agia5edXzyGWNaKMIxzEa9 aXBsZSBmcmFnbWVudHMgb2 YfkBDbJLxhvYIiJAXae8W5 FGVbK3gjUQagtZylBzP4sj AwLjYgeCAwLjYgeCAwLjIg A40tDZZvIDHgrOYuyA4yov BpcyBlbnRpcmVseSBzdWJt jJB9EZAmoY0cM3Gud3I4gE UgQzEuICBccGFyXHBhciBT mNGvmM6ackTVWOrqUZklOd WaYBVxJmZyw2hjlYQbNVAc d2PoVYa6ioNnFZEmU1Zpfg KfUTogMDMnin1xlLnjFTWw HHFndLf6kSEeWVTnfuMrcA HukBLvr1UcoOWhLRplaIJb XOTmk2B6ZZItH8jpKKyatP trTtB0vbUiAtkbtDYwGyZb sHMyJqQyE80uDVUoYXGfkT WbdT2obwVttfYnsbJnqzDn kLUvqJImfDD9GWTdpW8iL0 Srp1R3cVVbXABoNFIvjKIz COWzqkRVhIVtdZ2ovaKJTF ngAIqhFlZcCOIrQtWuqB8w XZImh1UmzAPbZTDjE6Midi FmOIgrURTpgv4ngTzpHVSp IDTziCu7tOOmHGFybzRmgO VrsCVvf2AhkPTsHQJqomha fFcod6ZsRMYgD7JyZ7N5cL 5nIHRvIDEgeCAwLjkgeCAw PfNfQ03dAQCaDLRsyWHmwL 1lbiBpcyBlbnRpcmVseSBz tHCksGZ1EAWbpU3vI7Ojv7 V0vPBgSNItHAOtzGUsNWEa wdUMsAGxyD0iugCKZUubIX smIuQjHGFaUbJwK4R8tUVa UHWwI1PuyoMtLYhtLJCtoz 7lsYgdQBedKL6uEHVordQk dNWmuTVcRuG9EE7ayKgxqr A1mYYwhXKbjLMfk9HvrH6s QLHwZLX5ZYJmQIQ4LRApTN MrjB7kUDcnAMDxISSvfHSu KDszEQUpsFsdLJe2ALO7Ed 6xgEUgIKCigfVrAOZiUGH8 QYXPXO5zAAAGG7HwCCJnDP luXGYwXGZzMjBccGFyfQ== MICROSCOPIC DESCRIPTION a3mhzSFgGVEojBMzYbFiBF (test code = 3371) HeVATud2qyYSIkcMXjIjSj MzNcZnRuYmpcdWMxXGRlZm Oub1png190zXBsv6wnNOFn FoO0jIHgGZUkzBNjD652HR EvFOcti2vtd5RcQXNdeEDu e4U4KDJQexrskUd1nDdyF3 3dk4U1AgvyH6miWOSsISjz DFUyIEculTYcCHR0UFRuFN O5XVgrkyNcmdV3FGuugFHs EyG0PRb1k0zphIheJAApKJ J5u0qyEYmdhfMuQW1mnc4w xBh5t0csnpPpJCIzWRUgkH CCJOVbJ2JgxVljKo5mlGt2 gQdnYradKWY5Epq1WL6xnz 74cci1aYnhLOFldtvaIqA0 LNjoZASzmdvbRRe8JUiuWT JnbDcyMFxtYXJncjcyMFxt YXJndDcyMFxtYXJnYjcyMF vxYCOcBQF8YZzwa055PMS7 FEpja3oul9izgCNdJsj6BC KxDxCdSggiIAnfl0Sqr6yo FLOhao6uVOS0iYWpqFblx5 V6zOVkCRZrhDPktsRpKPPo UqS8LBxmVD4qby91VOEjHM S8jf8mzUOfiPvlpsSiyCXr TItjS9BaPLPfv085LDUsH1 DoXAEwf4I8ubVzNuGbCASl iCI1ffT9JLQeBRh5jTPlas P8mfNmpUUsE4eniH34TnUp pEUmY5QvbE11AvJuxEHwS6 HfdM41OvOykPTaE7IayP04 IsUwbPDkWVOffJKrJu7ydX MazLBmw8BizWPwGRxpQ57f w838EMPopgQgA6fpsVQqxi xwbGFpblxmMFxmczIwXHFs XHBsYWluXGYwXGZzMjBccG kmmL1xLrXkMvZhCSKRDdHS qB4iIN2ojKTlwB7ol1xekh BtFPUbPNN6b3BhfcMtDG68 H68wCOU0xSKkMJqqE8OkIA NlZCBjaHJvbmljIGluZmxh dE7heY1wvEMgVByaupMdfb InrNiuxJ3uVzEsCgYuDOIb ZQ8divOfuLZhjTZtLLitmD FpblxmMFxmczIwICBhbmQg JrM7sj2fffSppKFoVLWcyE EisaToDCQhPW8jAb2ryIDz YXNpdGVzLCBkeXNwbGFzaW Rcy7CkeQMlwXcbJR7rkNRk cyBpZGVudGlmaWVkLlxwYX JccGFyIEIuIFJhbmRvbSBn IVJ5vztcKPApt4TxdQIwCV rfujZkCR41ivMfJRQfKXYq lOzhhIhnIB75G62bLTR3gA RoIGZvdmVvbGFyIGFuZCBm tUNaz268d9B7hKDeNKh7sO QhdQnra1muHRRrJBZvr1Ov lOAzvtOnSVBmNIPiF0kvv4 7qViArpsXgJL4qBDIctwdp Q8DlfWVlaY7mBCHwQYhlIJ RvXXTmNwWxtWZonS1iZCPi d8GhgCNfzVroqZ4vNnYzZk PgAQJqUM6oWNozyZqyy0Fo S9ItskDdkKxveucoFTOsDF VuTW4oe19iVOKUBC8wSOst ggJktH1sc3IfieN6YCE6MS jnXoKZrmFqigFyb4ZamoOp FG8hvXVrmESigVKjFEC1k4 FmZGMoBXJbhyIoQBsmZ01i crP2QAibIFecNQ94xLRwDU QuIFxwYXJccGFyIEMtRDog Ue8extwvHXwfLWH4ryynTI AgpeZtl6UghgTpGE0ceXBu rRNytPUjXOS9c6XuBKGpCA DdtpVqDVljY65lkkD9XFqc TPKkET7mWUWtcTVfASYbhx ELZhTSHR2cy52uV86ny82x XhsobFFcHIAbvNS3UMHsa0 AhcZXgmTscBD59IGonGVEh FC3zJ3EspRslY1YwWRT2lK FohZekidjtp2AvpGRvrX6x PO4jthpqPinrDLHlIPIcqM GvsBAxS3YtaRtxbWE8ZHPl ubKadRB7t4O8oK2vYG4nJM FmR7sfzTGuhCYqAX2kDu5p R9V3rGIlsIelWGFzdhcxjI NkOmCiZUEuAQMwjOMns1Hp z3GwDtQam2enpOxsLFIxiN EquGYqlNEhk9LttENbtMuq PC1lhWEvCGUrNvNtlPXvXW ZykoHWLvFKNH7ek72irzOe lCFbYQTya3FdeLIoSMjkfn OjgV4kYK5ttrskTegbXGUv I9NhmIGgfLAxn9Kij5k4sK WzcX3szM3mYGAqN3xdECce dGVzLiBObyBkeXNwbGFzaW Tnv0EdwCMncLybGD8nyTTd cyBpZGVudGlmaWVkLiBccG FyfQ== SPECIAL STUDIES (test o8vsfMSuKBWyjYEgSpQrPH code = 3376) LpPJWlp5keVWRsoPIwFdYs MzNcZnRuYmpcdWMxXGRlZm Mif1onw506dOJdh2laXNOz CsW3wPBdBPMptBAsN228EI WkDYqfm6cgq4TmBZNltAIg a7N5ZZHAOYjgQgEkS332WW JbPCuga3tvz4GlNYXxgOQq f5A8RIGTovvxiYs5kHzxS9 9nn4V8FghwG6xhCOMrKWKh F3NuJS5vPBMqXoo3HMB3WL F4XLXvTPTxM9MwUJ1uSDGh bPXtSIy0d1amhFkiUZHjTG F9b4nyEUmscrE2JI0hqg4w nZb8m1pfgiAcZZFtXYWqqF YOMBFsH3OtmDydAu5rvEn3 y5kaXhpbysL5rSLvJhEhEj MyMFxsaTBccmkwIENvUGF0 hNINGAn6N336i9nfDXFyzn RskKcPjaymr8wqU994JKBy cGVydzEyMjQwXHBhcGVyaD E5KKBfYY1ccbeoWsPfFA9z dujhWbVeRP6bknr0YaJkGE 1hcmdiNzIwXGhlYWRlcnkw TYWcc3LvucusVN1iM0Kba9 V1cL8zyYEuCJBlbHXsHuAc GKWmaw5sdAQuMSrfHQM2AD MrygBtx8Iff2zjXoLqemEj F4ycF2UoBBDlYMSuPZGvWu WejoVum8Upy4YvfFTrrBl8 a9agATSdLQWxvRpgk2anQL I6IJQkR9V6gREmp1oqQWev YTWpjCC1wrqyBHovPPPqxp U0etteTJdiMAYgxEN6gnbn JFhkDLEeUcY3xfabOZtjUF UvWOK7PEhnh123GDM9CPhe YmtwYWdlXHBnbmNvbnRccG duZGVjXHBsYWluXHBsYWlu XGYwXGZzMjRccWxccGxhaW 9oRgGhAoFsVziuQQ7jBGDt V9cbgKKkLICgFGRpZ6mxTw MlqG9ttIrrZGlrLcJjQiHv PzVYsKMovA85OYZcauO1HJ Hqf72fa6VllDvfbkLgUAJs JXzoW9j9VKVtQPEpUHJ0c7 Toh4PrqX0zwH2haVpvaJ6t sHJrwUD0wkgiv0Kfx7ZiZ3 lhbCBzdGFpbnMuXHBsYWlu XGYxXGZzMjJcbGFuZzEwMz NcaGljaFxmMVxkYmNoXGYx XYllJ3ilUpQlG5ZxJVFkFg CfpWInN5hoeSBoUOMapysc bGFpblxmMVxmczIyXGxhbm uxYLJdCVefA7vyExDeFQVi gKnpAGxhs5AgCJOvTKPoBr zahjMcNBZferRgq7teI9dc NRAdBQX3IN7lsrWeQgRgJU 9dxH35u1Hhs01cf81piL1q gMXabwBjU45ghODnwGVyo8 CuNJLgalTejJX0TTKtKNoj lywxt4u8kGM9bLPpgILecM P7iVUraGLrKOHRlBNkIGXi d036in3yQQUeuUVoemPwzF 9qHCmvnawmmYViNO3hSQDt PRNzHJQgPM06lyDsVP3xgS Fsu5dpmwNpePBgr8ZqlRG8 VJCbgXVyvoqoBn4xUG15AM FvZKnyxJ3fqGVmdjVdYD7b GM7qJ8G7wHCuARVnwnPnx5 vlGVqeCA6ePVAnaEcqClcp SKFeYENgzgQcxYP2JUJcxZ qfhC9qIuPeTaQkRawpAA0i JSVfK7bmcPKePDEeHCBeI7 vkRbJpzZ1iaSbrXsytxuQr XHBhclxwYXJkXHBsYWluXG KaWYMtCeOurIjwrW7lRaOi ZnMyNFxwYXJ9 [id number] 08:22:00Surgical Pathology Report Case: [id number] Authorizing Provider: Michael Groves MD Collected: 03/30/2020 10:57 AM Ordering Location: [facility] END[facility]COPY Received: 03/30/2020 02:13 PM [...] LYMPHOID AGGREGATENZK/pl Signing Pathologist Direct Phone Line: [phone] signed by Augustina Nunez MD on 04/01/2020 at 8:22 [id number]; [id number]: colonoscopy and upper endoscopy, biopsyPre and postop [...] negative controls when available are evaluatedPOCT , [id number] 10:12:00 Test Item Value Reference Range Interpretation Comments Test Urine, POC (test Negative code = 3805292) Control line present?, POC (test Yes code = 4380560) Background clear?, POC (test code Yes = 3162863) UPT Cassette Lot #, POC (test code 6434855 = [id number]) UPT Cassette Expiration Date, POC 06-06-2021 (test code = 7483541) Lab Interpretation (test code = Normal 18140-7) [facility]
[2021-01-12 17:56] LABS: Absolute Lymphocytes (CBC) 1.8 K/uL (0.7-4.9); Basophils % 0.7 % (0-1.3); Hematocrit 42.7 % (36.0-45.0); Lymphocytes % 22.2 % (15.3-44.8); MPV 7.8 fL (7.6-11.3); RBC Red Blood Cell Count 5.11 M/uL (3.86-4.86)
[2021-01-12 18:04] LABS: Protime INR 1.06
--- NOTE | 2021-01-12 18:05 | RAD REPORT ---
EXAM DESCRIPTION: [place] Single View01/12/2021 5:46 pm CLINICAL HISTORY: Chest pain COMPARISON: January 05, 2021 FINDINGS: The lungs appear clear of acute infiltrate. The heart is normal size IMPRESSION: No acute abnormalities displayed
[2021-01-12 18:21] LABS: ALT/SGPT 19 U/L (12-78); Alkaline Phosphatase 86 U/L (45-117); BUN Blood Urea Nitrogen 8 mg/dL (7-18); Bicarbonate 24 mmol/L (21-32); Bilirubin Direct < 0.1 mg/dL (0-0.2); Bilirubin Total 0.6 mg/dL (0.2-1.0); Glucose Level 120 mg/dL (74-106); NT PRO-BNP 47 pg/mL (<125); Potassium 3.5 mmol/L (3.5-5.1); Protein, Total 7.9 g/dL (6.4-8.2); Sodium Level 142 mmol/L (136-145); Troponin (Emerg Dept Use Only) < 0.02 ng/mL (0.0-0.045)
[2021-01-12 18:22] LABS: AST/SGOT 15 U/L (15-37); Magnesium 2.6 mg/dL (1.8-2.4)
[2021-01-12 18:58] LABS: Blood Morphology Comment NOT SEEN (NOT SEEN); Platelet Estimate ADEQ; White Blood Cell Scan OK (OK)
[2021-01-12] MEDS ORDERED: NA CHLORIDE 0.9% 1,000 ML ONE (19:15)
--- NOTE | 2021-01-12 20:17 | ER ---
Nurse's Notes [facility] Name: Reyna Garcia Age: 50 yrs Sex: Female : 1970 Arrival Date: 01/12/2021 Time: 17:10 Bed 5 Private MD: Curt Patiño Diagnosis: Chest pain, unspecified Presentation: 01/12 17:18 Chief complaint: Patient states: Chest pressure and burning for 1 day. Reports ll1 dizziness and palpitations. No cough or SOB. Coronavirus screen: Client denies travel out of the [place] in the last 14 days. At this time, the client does not indicate any symptoms associated with coronavirus-19. Ebola Screen: Patient denies travel to an Ebola-affected area in the 21 days before illness onset. Initial Sepsis Screen: Does the patient meet any 2 criteria? HR > 90 bpm. No. Patient's initial sepsis screen is negative. Does the patient have a suspected source of infection? No. Patient's initial sepsis screen is negative. Risk Assessment: Do you want to hurt yourself or someone else? Patient reports no desire to harm self or others. Onset of symptoms was January 12, 2021. 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 - Social history:: Smoking status: Patient denies any tobacco usage or history of. Screenin:15 Abuse screen: Denies threats or abuse. Nutritional screening: No deficits noted. tw2 Tuberculosis screening: No symptoms or risk factors identified. Fall Risk None identified. Assessment: 17:35 General: Appears in no apparent distress. uncomfortable, Behavior is calm, cooperative, tw2 appropriate for age. Pain: Complains of pain in chest Pain radiates to right arm and left arm Pain began couple of hours ago, "started amitriptyline last night for my stomach issues and the nerves and i kept putting it off today thinking it would get better and then i called the doctor that prescribed it and he said i should come up here". Neuro: Level of Consciousness is awake, alert, obeys commands, Oriented to person, place, time, situation. Cardiovascular: Patient's skin is warm and dry. Respiratory: Airway is patent Respiratory effort is even, unlabored, Respiratory pattern is regular, symmetrical. GI: No signs and/or symptoms were reported involving the gastrointestinal system. : No signs and/or symptoms were reported regarding the genitourinary system. Musculoskeletal: Range of motion: intact in all extremities. 18:14 Reassessment: Patient appears in no apparent distress at this time. No changes from tw2 previously documented assessment. Patient and/or family updated on plan of care and expected duration. Pain level reassessed. Patient is alert, oriented x 3, equal unlabored respirations, skin warm/dry/pink. 18:38 Reassessment: provider at bedside at this time. tw2 19:13 Reassessment: Patient appears in no apparent distress at this time. Patient and/or ad5 family updated on plan of care and expected duration. Pain level reassessed. Patient is alert, oriented x 3, equal unlabored respirations, skin warm/dry/pink. 20:14 Reassessment: Patient appears in no apparent distress at this time. No changes from ad5 previously documented assessment. Patient is alert, oriented x 3, equal unlabored respirations, skin warm/dry/pink. 20:25 Reassessment: Patient and/or family updated on plan of care and expected duration. Pain ea level reassessed. Patient is alert, oriented x 3, equal unlabored respirations, skin warm/dry/pink. Awaiting for IV fluids to complete. 21:17 Reassessment: Patient appears in no apparent distress at this time. Pt awaiting IVF to ad5 finish prior to discharge, denies needs or c/o at this time. 21:49 Reassessment: Patient appears in no apparent distress at this time. Patient is alert, ad5 oriented x 3, equal unlabored respirations, skin warm/dry/pink. Patient states feeling better. Vital Signs: 17:18 BP 158 / 81; Pulse 108; Resp 16; Temp 97.0; Pulse Ox 96% on R/A; Weight 86.18 kg; ll1 Height 5 ft. 4 in. (162.56 cm); Pain 8/10; 18:14 BP 119 / 81; Pulse 75; Resp 16; Pulse Ox 96% on R/A; tw2 19:13 BP 123 / 82; Pulse 67; Resp 16 S; Pulse Ox 97% ; ad5 20:14 BP 124 / 83; Pulse 76; Resp 16 S; Pulse Ox 97% on R/A; ad5 21:18 BP 121 / 72; Pulse 80; Resp 16 S; Pulse Ox 96% on R/A; ad5 21:49 BP 120 / 73; Pulse 70; Resp 17 S; Pulse Ox 96% on R/A; ad5 17:18 Body Mass Index 32.61 (86.18 kg, 162.56 cm) ll1 ED Course: 17:10 Patient arrived in ED. ds1 17:10 Curt Patiño MD is Private Physician. ds1 17:11 Arm band placed on Patient placed in an exam room, on a stretcher. ll1 17:11 Placed in gown. Bed in low position. Call light in reach. vehicle monitor technician on. Pulse ox tw2 on. NIBP on. 17:14 [facility] Fri[facility]-C [facility]. kb 17:14 Sherman Greenwood MD is Attending Physician. kb 17:15 Sarah Renteria, MALENA is Primary Nurse. tw2 17:21 Triage completed. ll1 17:37 Inserted saline lock: 22 gauge in left forearm, using aseptic technique. Blood tw2 collected. 17:37 Patient maintains SpO2 saturation greater than 95% on room air. tw2 17:47 XRAY Chest (1 view) In Process Unspecified. EDMS 17:49 Inserted saline lock: 22 gauge in left forearm, using aseptic technique. ,using aseptic tw2 technique. infiltration noted in distal 22 g, removed, pressure dressing applied. 21:50 No provider procedures requiring assistance completed. IV discontinued, intact, ad5 bleeding controlled, No redness/swelling at site. Pressure dressing applied. Administered Medications: 19:09 Drug: NS 0.9% 1000 ml Route: IV; Rate: 1000 ml; Site: left forearm; ad5 21:48 Follow up: IV Status: Completed infusion; IV Intake: 1000ml ad5 20:28 Drug: Ativan (LORazepam) 0.5 mg Route: IVP; Site: left forearm; ad5 21:18 Follow up: Response: No adverse reaction ad5 21:46 Drug: Ativan (LORazepam) 0.5 mg Route: IVP; Site: left forearm; ad5 Intake: 21:48 IV: 1000ml; Total: 1000ml. ad5 Outcome: 20:17 Discharge ordered by MD. mejia 21:50 Discharged to home ambulatory, with significant other. ad5 21:50 Condition: stable 21:50 Discharge instructions given to patient, Instructed on discharge instructions, follow up and referral plans. Demonstrated understanding of instructions, follow-up care. 21:50 Patient left the ED. ad5 Signatures: Dispatcher [employer] EDMeliza Salazar, ELECTRICIAN SUPERVISOR SUBSTATION-C ELECTRICIAN SUPERVISOR SUBSTATION-CkBatsheva Xie ds1 Sarah Renteria, RN RN tw2 Yi Bruner RN RN Alexandra Tracey RN RN ll1 Raymond Naranjo ad5
--- NOTE | 2021-01-12 20:17 | EDPHYS ---
Physician Documentation [facility] Name: Reyna Garcia Age: 50 yrs Sex: Female : 1970 Arrival Date: 01/12/2021 Time: 17:10 Bed 5 Private MD: Curt Patiño ED Physician Sherman Greenwood HPI: 01/13 00:14 This 50 yrs old Female presents to ER via Ambulatory with complaints of Chest kb Pain. 00:14 The patient or guardian reports chest pain that is located primarily in the chest kb diffusely. Onset: this morning, at 05:00. The pain does not radiate. Associated signs and symptoms: Pertinent positives: tingling/warmth across chest and shoulders. The chest pain is described as a heaviness. Duration: The patient or guardian reports multiple episodes, that wax and wane. Modifying factors: The symptoms are alleviated by nothing. the symptoms are aggravated by nothing. Severity of pain: At its worst the pain was mild moderate in the emergency department the pain is unchanged. The patient has not experienced similar symptoms in the past. The patient has been recently seen by a physician:. Pt reports she started amitriptyline last night for GI issues and this morning woke up with heaviness to chest. States she also feels warmth and tingling across chest and into shoulders. States the feeling has been there all day, but sometimes worse at times than others. Called GI dr and was told to come to the ER for evaluation. Pt states she has been under a lot of stress due to all of the GI issues she has been having.. 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 - Social history:: Smoking status: Patient denies any tobacco usage or history of. ROS: 01/13 00:13 Constitutional: Negative for fever, chills, and weight loss. kb Cardiovascular: Positive for chest pain, Negative for edema, orthopnea, palpitations, paroxysmal nocturnal dyspnea. Psych: Positive for anxiety. All other systems are negative. Exam: 00:13 Constitutional: This is a well developed, well nourished patient who is awake, alert, kb and in no acute distress. Head/Face: Normocephalic, atraumatic. ENT: Moist Mucous membranes Cardiovascular: Regular rate and rhythm with a normal S1 and S2. No gallops, murmurs, or rubs. No pulse deficits. Respiratory: Respirations even and unlabored. No increased work of breathing, no retractions or nasal flaring. Abdomen/GI: Soft, non-tender. No distention Skin: Warm, dry with normal turgor. Normal color. MS/ Extremity: Pulses equal, no cyanosis. Neurovascular intact. Full, normal range of motion. Neuro: Awake and alert, GCS 15, oriented to person, place, time, and situation. Moves all extremities. Normal gait. Psych: Awake, alert, with orientation to person, place and time. Behavior, mood, and affect are within normal limits. 00:13 Constitutional: The patient appears anxious. kb Vital Signs: 01/12 17:18 BP 158 / 81; Pulse 108; Resp 16; Temp 97.0; Pulse Ox 96% on R/A; Weight 86.18 kg; ll1 Height 5 ft. 4 in. (162.56 cm); Pain 8/10; 18:14 BP 119 / 81; Pulse 75; Resp 16; Pulse Ox 96% on R/A; tw2 19:13 BP 123 / 82; Pulse 67; Resp 16 S; Pulse Ox 97% ; ad5 20:14 BP 124 / 83; Pulse 76; Resp 16 S; Pulse Ox 97% on R/A; ad5 21:18 BP 121 / 72; Pulse 80; Resp 16 S; Pulse Ox 96% on R/A; ad5 21:49 BP 120 / 73; Pulse 70; Resp 17 S; Pulse Ox 96% on R/A; ad5 17:18 Body Mass Index 32.61 (86.18 kg, 162.56 cm) ll1 MDM: 17:15 Patient medically screened. kb 01/13 00:12 Data reviewed: vital signs, nurses notes. Data interpreted: Pulse oximetry: on room air kb is 96 %. Interpretation: normal. Counseling: I had a detailed discussion with the patient and/or guardian regarding: the historical points, exam findings, and any diagnostic results supporting the discharge/admit diagnosis, lab results, radiology results, the need for outpatient follow up, a family practitioner, to return to the emergency department if symptoms worsen or persist or if there are any questions or concerns that arise at home. 01/12 17:15 Order name: Basic Metabolic Panel; Complete Time: 18:24 kb 01/12 17:15 Order name: CBC with Diff; Complete Time: 18:59 kb 01/12 17:15 Order name: LFT's; Complete Time: 18:24 kb 01/12 17:15 Order name: Magnesium; Complete Time: 18:24 kb 01/12 17:15 Order name: NT PRO-BNP; Complete Time: 18:24 kb 01/12 17:15 Order name: PT-INR; Complete Time: 18:46 kb 01/12 17:15 Order name: Troponin (emerg Dept Use Only); Complete Time: 18:24 kb 01/12 17:15 Order name: XRAY Chest (1 view); Complete Time: 18:10 kb 01/12 17:15 Order name: EKG; Complete Time: 17:15 kb 01/12 18:58 Order name: CBC Smear Scan; Complete Time: 18:59 EDMS 01/12 19:32 Order name: Troponin (emerg Dept Use Only); Complete Time: 20:16 kb 01/12 17:15 Order name: Cardiac monitoring; Complete Time: 17:38 kb 01/12 17:15 Order name: EKG - Nurse/Tech; Complete Time: 17:38 kb 01/12 17:15 Order name: IV Saline Lock; Complete Time: 17:38 kb 01/12 17:15 Order name: Labs collected and sent; Complete Time: 17:38 kb 01/12 17:15 Order name: O2 Per Protocol; Complete Time: 17:38 kb 01/12 17:15 Order name: O2 Sat Monitoring; Complete Time: 17:38 kb 01/12 19:32 Order name: EKG; Complete Time: 19:32 kb 01/12 19:32 Order name: EKG - Nurse/Tech; Complete Time: 19:49 kb Administered Medications: 01/12 19:09 Drug: NS 0.9% 1000 ml Route: IV; Rate: 1000 ml; Site: left forearm; ad5 21:48 Follow up: IV Status: Completed infusion; IV Intake: 1000ml ad5 20:28 Drug: Ativan (LORazepam) 0.5 mg Route: IVP; Site: left forearm; ad5 21:18 Follow up: Response: No adverse reaction ad5 21:46 Drug: Ativan (LORazepam) 0.5 mg Route: IVP; Site: left forearm; ad5 Disposition: 01/13 07:02 Co-signature as Attending Physician, Sherman Greenwood MD. rn Disposition: 01/12/21 20:17 Discharged to Home. Impression: Chest pain, unspecified. - Condition is Stable. - Discharge Instructions: Nonspecific Chest Pain, Xevo-by-Bket. - Medication Reconciliation Form, Thank You Letter, Antibiotic Education, Prescription Opioid Use, Work release form, Family Work Release form. - Follow up: Emergency Department; When: As needed; Reason: Worsening of condition. Follow up: Private Physician; When: 2 - 3 days; Reason: Recheck today's complaints, Continuance of care, Re-evaluation by your physician. Signatures: Dispatcher [employer] EDMS Meliza Frias, [employer]-C[employer] hSerman Greenwood MD MD rn Lewis, Lynsay, RN RN 1 Raymond Naranjo ad5 Corrections: (The following items were deleted from the chart) 01/12 21:50 20:17 01/12/2021 20:17 Discharged to Home. Impression: Chest pain, unspecified. ad5 Condition is Stable. Forms are Work release form, Family Work Release, Medication Reconciliation Form, Thank You Letter, Antibiotic Education, Prescription Opioid Use. Follow up: Emergency Department; When: As needed; Reason: Worsening of condition. Follow up: Private Physician; When: 2 - 3 days; Reason: Recheck today's complaints, Continuance of care, Re-evaluation by your physician. kb 01/13 00:14 00:13 Constitutional: This is a well developed, well nourished patient who is awake, kb alert, and in no acute distress. Head/Face: Normocephalic, atraumatic. ENT: Moist Mucous membranes Cardiovascular: Regular rate and rhythm with a normal S1 and S2. No gallops, murmurs, or rubs. No pulse deficits. Respiratory: Respirations even and unlabored. No increased work of breathing, no retractions or nasal flaring. Abdomen/GI: Soft, non-tender. No distention Skin: Warm, dry with normal turgor. Normal color. MS/ Extremity: Pulses equal, no cyanosis. Neurovascular intact. Full, normal range of motion. Neuro: Awake and alert, GCS 15, oriented to person, place, time, and situation. Moves all extremities. Normal gait. Psych: Awake, alert, with orientation to person, place and time. Behavior, mood, and affect are within normal limits. kb
[2021-01-12 22:24] VITALS: O2SAT 96
[2021-01-12 22:25] VITALS: BP 120/73
[2021-01-12 22:37] VITALS: TEMP 97
== END 2021-01-12 21:50 | disposition home or self-care (01) ==
LOC: ER 17:08
DX: R07.9 Chest pain, unspecified (principal)
CPT/HCPCS: 85025; 80048; 36415; 83735; 85610; 80076; 84484 ×2; 83880; 71045; J7030; 93005; 96361; 96374; 99285